=== PATIENT | female | born 1950 | race Caucasian/White ===

== ENCOUNTER → 2018-04-13 10:10 | Outpatient (CLI) | payer MEDICARE, BC, SELFPAY ==
[2018-04-13 10:39] LABS: Add Manual Diff / Slide Review NO; Basophils Percent Auto 0.1 % (0-2); Eosinophils Percent Auto 2.7 % (2-4); Hematocrit 35.4 % (36-46); Hemoglobin 12.2 g/dL (12.0-16.0); Lymphocytes Percent Auto 46.2 % (25-40); Mean Corpuscular HGB Conc 34.4 % (30-36); Mean Corpuscular Hemoglobin 31.2 PG (26-34); Mean Corpuscular Volume 90.8 fL (80-100); Monocytes Percent Auto 8.6 % (3-14); Neutrophils Absolute Auto 2700 /uL (3000-5900); Neutrophils Percent Auto 42.4 % (50-75); Platelet Count 242 X10^3/uL (150-400); Red Cell Distribution Width 13.2 % (11.6-14.8); White Blood Cell Count 6.3 X10^3/uL (4.5-11.0)
[2018-04-13 10:47] LABS: Alanine Aminotransferase 17 IU/L (9-52); Albumin Globulin Ratio 1.6 (1.0-2.8); Alkaline Phosphatase 63 U/L (38-126); Aspartate Aminotransferase 19 IU/L (14-36); Bilirubin Total 0.5 mg/dL (0.2-1.3); Blood Urea Nitrogen 18 mg/dL (7-17); Calcium 9.4 mg/dL (8.4-10.2); Carbon Dioxide 29 mmol/L (22-32); Chloride 106 mmol/L (98-107); Globulin 2.5 g/dL (1.7-4.1); Glucose 106 mg/dL (80-110); HEMOLYSIS < 15 (0-50); Potassium 4.8 mmol/L (3.4-5.1); Sodium 141 mmol/L (137-145); Total Protein 6.5 g/dL (6.3-8.2)
[2018-04-13 11:21] LABS: Carcinoembryonic Antigen < 0.3 ng/mL (0.1-3.0)
== END ==
PROVIDERS: Family Provider Internal Medicine; PCP Internal Medicine; Visit Provider Nurse Practitioner Gerontology
DX: C21.0 Malignant neoplasm of anus, unspecified (principal)
CPT/HCPCS: 36415; 80053; 82378; 85025

== ENCOUNTER → 2018-10-13 08:54 | Outpatient (CLI) | payer MEDICARE, BC, SELFPAY ==
[2018-10-13 09:17] LABS: Add Manual Diff / Slide Review NO; Basophils Absolute Auto 0 /uL (0-100); Basophils Percent Auto 0.2 % (0-2); Eosinophils Absolute Auto 100 /uL (0-450); Hematocrit 39.4 % (36-46); Hemoglobin 13.3 g/dL (12.0-16.0); Lymphocytes Absolute Auto 3000 /uL (1100-4500); Mean Corpuscular HGB Conc 33.7 % (30-36); Mean Corpuscular Hemoglobin 30.7 PG (26-34); Mean Corpuscular Volume 90.9 fL (80-100); Monocytes Absolute Auto 600 /uL (0-900); Monocytes Percent Auto 8.5 % (3-14); Neutrophils Absolute Auto 3000 /uL (1500-7000); Neutrophils Percent Auto 44.3 % (50-75); Platelet Count 285 X10^3/uL (150-400); Red Blood Cell Count 4.34 X10^6/uL (4.0-5.2); Red Cell Distribution Width 13.6 % (11.6-14.8); White Blood Cell Count 6.7 X10^3/uL (4.5-11.0)
[2018-10-13 09:36] LABS: Blood Urea Nitrogen 23 mg/dL (7-17); Estimated Glomerular Filt Rate 54.8 mL/min (>60)
--- NOTE | 2018-10-13 10:06 | DI.CT.S_ITS ---
PROCEDURE: CT CHEST ABD PEL W CON INDICATIONS: surveillance anal squamous cell carcinoma there is a stable 3 mm pulmonary nodule image 3/49 in the extreme left lung base. TECHNIQUE: After the administration of oral and intravenous contrast, 5 mm thick sections acquired from the lung apices to the symphysis. 5 mm coronal and sagittal reformats were performed, with additional 7 mm coronal MIP reformats through the lungs. For radiation dose reduction, the following was used: automated exposure control, adjustment of mA and/or kV according to patient size. COMPARISON: [facility], CT, CHEST/ABD/PEL WITH CONTRAST, 10/27/2017, 10:17. FINDINGS: Image quality: Excellent. CHEST: Lungs and pleura: No acute airspace opacities. No pleural effusions or pneumothorax. Central and peripheral airways appear patent and normal in caliber. There is a stable 3 mm nodule on image 3/49 in the extreme left lung base. No other pulmonary nodules are identified. Mediastinum: Heart size is normal. No pericardial effusion. No mediastinal or hilar adenopathy by size criteria. Thoracic aorta and central pulmonary arteries are normal in size. Esophagus is normal in caliber. Small hiatal hernia. Chest wall: No axillary or supraclavicular adenopathy by size criteria. Thyroid gland is unremarkable. ABDOMEN: Solid organs: Liver is normal in size and enhancement. Gallbladder is unremarkable. Biliary system is non dilated. Pancreas enhances normally. Spleen is normal in size and enhancement. No adrenal nodules. Kidneys demonstrate normal size and enhancement, without hydronephrosis. Peritoneum and bowel: Bowel loops demonstrate normal wall thickness and caliber. No free fluid or air or abscess cavity. Sigmoid diverticulosis without evidence of diverticulitis. Nodes and vessels: No retroperitoneal or mesenteric adenopathy by size criteria. Aorta and inferior vena cava are normal in size. Miscellaneous: No ventral hernias. PELVIS: Genitourinary: Bladder wall thickness is normal. Miscellaneous: No inguinal hernias or adenopathy. No evidence of local recurrence in the region of the deep pelvis. Bones: No suspicious bony lesions. No vertebral body compression fractures. IMPRESSION: 1. No evidence of locally recurrent or metastatic disease in the chest, abdomen, and pelvis. 2. Stable 3 mm pulmonary nodule in the extreme left lung base. 3. Sigmoid diverticulosis. 4. Small hiatal hernia. Dictated by: Blayne Whitt M.D. on 10/13/2018 at 11:38 Approved by: Blayne Whitt M.D. on 10/13/2018 at 12:19
[2018-10-13 10:09] LABS: Carcinoembryonic Antigen 0.4 ng/mL (0.1-3.0)
--- NOTE | 2018-10-13 11:45 | PC.NURSE ---
Labs are stable, provider visit on 10/18
[2018-10-18 14:24] VITALS: BP 145/79; PULSE 78; RESP 16; TEMP 37; O2SAT 100
== END ==
PROVIDERS: Family Provider Internal Medicine; PCP Internal Medicine; Visit Provider Nurse Practitioner Gerontology
DX: C21.0 Malignant neoplasm of anus, unspecified (principal); R91.1 Solitary pulmonary nodule; K57.30 Diverticulosis of large intestine without perforation or abscess without bleeding; K44.9 Diaphragmatic hernia without obstruction or gangrene
CPT/HCPCS: 36415; 71260; 74177; 82378; 82565; 84520; 85025; Q9967

== ENCOUNTER 2018-12-30 07:18 | Day surgery (SDC) | payer MEDICARE, BC, SELFPAY ==
--- NOTE | 2018-12-30 | PATH_ITS ---
[facility] Accession Number: [id number] . 01 Material submitted: . anus - ANUS BIOPSY, POSTERIOR 1 O'CLOCK . 02 Diagnosis: Anus, Posterior 1 o'clock, Biopsy: Anal squamous mucosa with hyperkeratosis and focal parakeratosis; please see comment. Viral cytopathic effect not identified. Negative for dysplasia or malignancy. Additional step sections examined. V/01/03/2019 . 02 Comment: The findings in the anal biopsy are suggestive of chronic irritation. There is no evidence of viral cytopathic effect or neoplasm in this biopsy. . 02 Electronically signed: . Darin Shane MD, PhD, Pathologist NPI- [id number] . 01 Gross description: . ANUS BIOPSY, POSTERIOR 1 O'CLOCK: Received in formalin is 1 fragment of major soft tissue measuring 0.1 x 0.1 x 0.1 cm. Tissue is inked,. Specimen is submitted in its entirety in 1 cassette. /[facility] . 02 Pathologist provided ICD-10: Z12.12 . 02 CPT . 029573 Performed at: 01 [facility] [address] [place] [address], [place], [place] [id number] MD Rajendra Quintero MD Phone: [phone] Performed at: 02 [facility] [address] [place], [place] [id number] MD Jannet Finley MD Phone: [phone]
[2018-12-30 08:09] VITALS: BP 147/75; PULSE 87; RESP 15; TEMP 36.4; O2SAT 98; BMI 33.3
[2018-12-30] MEDS: SODIUM CHLORIDE 0.9% 1,000 ML 200 ML IV (08:28)
--- NOTE | 2018-12-30 09:15 | PM.HP.1 ---
History of Present Illness Date Patient Seen: 12/30/18 Time Patient Seen: 09:15 Chief complaint: [id number] Narrative: The patient is here for surveillance anoscopy. She was diagnosed and treated for anal cancer squamous cell 4 years ago. Patient History Medical History Anal cancer (Acute) Arthritis (Acute) GERD (gastroesophageal reflux disease) (Acute) Hyperlipidemia (Acute) Pollen allergies (Acute) Ulcer (Acute) Family History (Updated 12/30/18 @ 07:58 by Darby Fierro RN) Mother Diabetes mellitus Sister Diabetes mellitus Social History household members: spouse Family & Social History Family History Mother Diabetes mellitus Sister Diabetes mellitus Social History: household members spouse Meds Home Medications Medication Instructions Recorded Confirmed Type famotidine [Pepcid] 40 mg PO DAILY #0 05/21/17 12/30/18 History acetaminophen [Tylenol Extra 500 mg PO Q6H PRN 12/30/18 12/30/18 History Strength] xaggvhve-ovh-mbgri acid-vit K 1 mcg PO DAILY 12/30/18 12/30/18 History [Multi For Her 50 Plus] omega 8-lxy-rdz-fish oil [Fish Oil] 1 cap PO DAILY 12/30/18 12/30/18 History vitamin E 180 unit PO DAILY 12/30/18 12/30/18 History Allergies Allergy/AdvReac Type Severity Reaction Status Date / Time No Known Drug Allergies Allergy Verified 12/30/18 08:07 Review of Systems Review of Systems All systems reviewed & are unremarkable except as noted in HPI and below Exam Vital Signs (past 8 hours): - 12/30/18 08:09 Temperature 97.6 F Pulse Rate 87 Respiratory Rate 15 Blood Pressure 147/75 H Pulse Oximetry 98 Oxygen Delivery Method Room Air Narrative Exam Narrative: Operative no apparent distress. Lungs are clear no rales or rhonchi. heart regular rate and rhythm without murmur gallop. abdomen is protuberant soft nontender without mass. Alert oriented x3. Assessment & Plan Assessment & Plan narrative: Patient for an anoscopy as surveillance for her squamous cell cancer of the anus. Risks of bleeding and infection discuss
--- NOTE | 2018-12-30 09:18 | PM.PREOP ---
Pre-operative Note Interval Note History & Physical reviewed/Exam performed by Physician: Yes Changes to H&P: No ASA Class (for procedural sedation): I
--- NOTE | 2018-12-30 09:29 | PM.OP.ENDO ---
Operative Date/Time/Diagnoses Date of procedure: 12/30/18 Time of procedure: 09:29 Pre-op diagnosis: History of squamous cell carcinoma of the anal canal Post-op diagnosis: same Procedure & Clinicians Study performed: Anoscopy with cold biopsy Same procedure as scheduled: Yes Indications: Surveillance Surgeon: Jose Eduardo Pollock Procedure Notes SCOAP/Timeout: Performed Procedure in detail: Patient is placed left lateral decubitus position. 2% lidocaine gel was placed to the anal verge. Anoscope was inserted and circumferential exam performed. the only abnormality I noted other than some tears created in the mucosa from the scope and her narrowed sphincter was a small raised area at about 1:00 a.m. in the right posterior slightly lateral position. biopsies were taken of this area. the scope was removed and the patient tolerated the procedure well. Scope withdrawal time: Not applicable Sedation minutes: 8 Findings: other findings (Small raised area) Specimen(s): other (Biopsies) Complications: none Recommendations: Other recommendation (Anoscopy in 1 year) Follow up: as needed Disposition: PACU
[2018-12-30] MEDS: fentaNYL 250 MCG/5 ML INJ IV (09:31)
[2018-12-30 09:32] VITALS: BP 111/52; PULSE 76; RESP 17; TEMP 36.4; O2SAT 92
[2018-12-30] MEDS: MIDAZOLAM 5 MG/5 ML VIAL IV (09:32)
[2018-12-30 09:38] VITALS: BP 125/75; PULSE 77; RESP 14; O2SAT 96
[2018-12-30 09:43] VITALS: BP 130/64; PULSE 82; RESP 14; TEMP 36.8; O2SAT 98
[2018-12-30 09:47] VITALS: BP 139/69; PULSE 69; RESP 16; O2SAT 98
[2018-12-30 10:08] VITALS: BP 147/68; PULSE 61; RESP 16; TEMP 36.7; O2SAT 99
== END 2018-12-30 10:14 ==
LOC: ENDO 07:19
PROVIDERS: PCP Internal Medicine; Visit Provider Specialist
PROC: 0DJD8ZZ Inspection of Lower Intestinal Tract, Via Natural or Artificial Opening Endoscopic (ICD-10-PCS; CPT 45378; principal; 2018-12-30 08:45)
DX: Z85.048 Personal history of other malignant neoplasm of rectum, rectosigmoid junction, and anus (principal)
CPT/HCPCS: 46606; 88305; J2250; J3010

== ENCOUNTER → 2019-05-29 10:18 | Outpatient (CLI) | payer MEDICARE, BC, SELFPAY ==
--- NOTE | 2019-05-29 10:23 | DI.RAD.S_ITS ---
PROCEDURE: XR LUMBAR SPINE MIN 4V INDICATIONS: Lumbosacral spondylosis TECHNIQUE: 4 views of the lumbar spine were acquired. COMPARISON: [facility], CT, CT CHEST ABD PEL W CON, 10/13/2018, 10:25. FINDINGS: Bones: 5 nonrib-bearing vertebrae are present. There is normal bony alignment. No vertebral body compression fractures. No suspicious bony lesions. There are moderate multilevel degenerative changes of the lumbar spine with multilevel intervertebral disc space height loss and reactive endplate sclerosis worst at L4-L5, as well as multilevel facet arthropathy worse at L4-L5. Facet arthropathy also results in osseous neural foraminal narrowing at the L4-L5 level. Mild degenerative changes of the hip joints bilaterally. Soft tissues: Nonobstructive bowel gas pattern. Rounded pelvic phleboliths are noted. There is mild calcified plaque of the abdominal aorta. Oblique images: No convincing pars defects are identified radiographically. IMPRESSION: Moderate multilevel degenerative changes of the lumbar spine, worst at the L4-L5 level as described above. Dictated by: Jerome Peñaloza M.D. on 05/29/2019 at 15:26 Approved by: Jerome Peñaloza M.D. on 05/29/2019 at 15:31
== END ==
PROVIDERS: PCP Internal Medicine; Visit Provider Physical Medicine & Rehabilitation
DX: M47.26 Other spondylosis with radiculopathy, lumbar region (principal); M47.27 Other spondylosis with radiculopathy, lumbosacral region; M48.07 Spinal stenosis, lumbosacral region
CPT/HCPCS: 72110; 99214

== ENCOUNTER → 2019-06-08 09:40 | Outpatient (CLI) | payer MEDICARE, BC, SELFPAY ==
--- NOTE | 2019-06-08 09:42 | DI.MRI.S_ITS ---
PROCEDURE: MR LUMBAR SPINE WO CON INDICATIONS: Lumbosacral spondylosis TECHNIQUE: Noncontrast sagittal T1 spin echo and T2 fast echo, sagittal STIR, axial T1 and T2 fast spin echo through the lumbar spine. In cases with scoliosis, additional coronal T2 fast spin echo may be performed. COMPARISON: [facility], MR, L-SPINE W&WO CONTRAST, 04/29/2016, 18:43. [facility], CR, XR LUMBAR SPINE MIN 4V, 05/29/2019, 10:26. [facility], CT, CT CHEST ABD PEL W CON, 10/13/2018, 10:25. FINDINGS: Image quality: Excellent. Alignment and Curvature: There is normal bony alignment. Bone Marrow: Marrow is of normal overall signal. No acute vertebral body compression fractures. Spinal Cord: Conus medullaris terminates at the L1 level. Visualized cord demonstrates normal signal and size. Paraspinous Soft Tissues: No paravertebral masses. T12-L1: No significant abnormality is seen. L1-L2: The disc height is well-preserved. Loss of disc signal is seen at this level. Mild generalized disc bulge is seen. Mild bilateral neural foraminal narrowing is seen. No significant central canal narrowing is seen. Stable from the prior study. L2-L3: Mild loss of disc height is seen. Loss of disc signal is seen. Moderate generalized disc bulge is seen. Moderate facet joint hypertrophy is seen. There is moderate left-sided and mild to moderate right-sided neural foraminal narrowing seen. Mild central canal narrowing is seen. These imaging findings have progressed compared to the prior study. L3-L4: Moderate loss of disc height is seen. Loss of disc signal is seen. Moderate generalized disc bulge is seen. Moderate bilateral facet hypertrophy is seen, right worse than left. There is at least moderate right-sided and moderate left-sided neural foraminal narrowing seen. There is a mild degree of compression seen upon the exiting right L3 nerve root. Mild central canal narrowing is seen. These imaging findings have progressed compared to the prior study. L4-L5: Moderate to severe loss of disc height and disc signal are seen. Reactive marrow endplate changes are seen, which demonstrate mix is ed T1 weighted and T2-weighted signal, and are attributed to a combination of edema and fatty metaplasia (Modic type I and Modic type II changes). Moderate generalized disc bulge is seen. Moderate facet joint hypertrophy is seen. There is at least moderate right-sided and moderate to severe left-sided neural foraminal narrowing seen. Compression can be seen on the exiting L4 nerve roots, left worse than right. Minimal central canal narrowing is seen. When comparison is made with the prior examination, these findings are similar. L5-S1: The disc height is well-preserved. Loss of disc signal is seen at this level. Mild generalized disc bulge is seen. Moderate facet joint hypertrophy is seen. There is moderate left-sided and no significant right-sided neural foraminal narrowing seen. No significant central canal narrowing is seen. When comparison is made with the prior examination, these findings are similar. IMPRESSION: Multiple levels of lumbar spine degenerative change are seen, which are most prominent at the L4-L5 level. The degenerative changes are mildly progressed at L2-L3 L3-L4 compared to 2016. Dictated by: Meño Mohr M.D. on 06/08/2019 at 10:46 Approved by: Meño Mohr M.D. on 06/08/2019 at 10:53
== END ==
PROVIDERS: Family Provider Internal Medicine; PCP Internal Medicine; Visit Provider Physical Medicine & Rehabilitation
DX: M47.27 Other spondylosis with radiculopathy, lumbosacral region (principal); M47.26 Other spondylosis with radiculopathy, lumbar region; M48.07 Spinal stenosis, lumbosacral region; M48.061 Spinal stenosis, lumbar region without neurogenic claudication
CPT/HCPCS: 72148

== ENCOUNTER 2019-08-15 14:25 | Outpatient (CLI) | payer MEDICARE, BC, SELFPAY ==
--- NOTE | 2019-08-15 14:27 | DI.RAD.S_ITS ---
PROCEDURE: PAIN L/S TRANSFORAMINAL INJECT INDICATIONS: 92203- Left L3/4 TFESI FINDINGS: Fluoroscopic spot filming was performed to verify placement of spinal needles at the L3-L4 level(s), as labeled on the films. Appropriate location(s) of the needle tip(s) was confirmed by injection of iodinated contrast. Dictated by: Brett Veloz M.D. on 08/15/2019 at 16:00 Approved by: Brett Veloz M.D. on 08/15/2019 at 16:01
[2019-08-15 15:00] VITALS: BP 136/63; PULSE 71; RESP 18; TEMP 36.7; O2SAT 98
[2019-08-15 15:22] VITALS: BP 144/66; PULSE 85; RESP 16; O2SAT 100
--- NOTE | 2019-08-15 15:23 | PC.NURSE ---
NO SEDATION MEDS GIVEN, PT REFUSED.
[2019-08-15 15:27] VITALS: BP 144/69; PULSE 94; RESP 16; O2SAT 100
[2019-08-15] MEDS: BUPIVACAINE 0.25% (PF) VIAL 2 ML INJ (15:29)
[2019-08-15] MEDS: IOPAMIDOL 15 ML VIAL 3 ML INJ (15:30)
[2019-08-15] MEDS: BETAMETHASONE 30 MG/5 ML MDV 6 MG INJ (15:30)
[2019-08-15] MEDS: DEXAMETHASONE 10 MG/ML VIAL 20 MG INJ (15:30)
[2019-08-15 15:32] VITALS: BP 149/60; PULSE 91; RESP 16; O2SAT 100
--- NOTE | 2019-08-15 15:34 | PC.NURSE ---
NO SEDATION MEDS GIVEN TO PT. ASSISTING PT OFF TABLE AND TRANSPORTING TO POST PROC AREA IN STABLE CONDITION.
[2019-08-15 15:48] VITALS: BP 144/65; PULSE 69; RESP 16; O2SAT 99
--- NOTE | 2019-08-15 16:18 | P.PCN_ITS ---
Procedures Date/Time Date of procedure: 08/15/19 Time of procedure: 16:20 General Procedure description: PROVIDER: Michael Rivera DO Operative Note PREOP DIAGNOSIS 1. FORAMINAL STENOSIS WITH LE SYMPTOMS, POST OP DIAGNOSIS 1. FORAMINAL STENOSIS WITH LE SYMPTOMS, PROCEDURES 1. FLUOROSCOPICALLY GUIDED CONTRAST CONTROLLED TRANSFORAMINAL EPIDURAL STEROID INJECTION - LEFT L3/4 TFESI SURGEON: Michael Rivera, DO INDICATIONS Alexandra is referred by Dr. Britton for treatment of Foraminal Stenosis with left LE Symptoms FINDINGS Foraminal Nerve Root Compression secondary to disc disease and facet hypertrophy DESCRIPTION OF PROCEDURE Following review of allergy and review of potential side effects and complications, including, but not necessarily limited to, infection, allergic reaction, local tissue breakdown, stroke, temporary or permanent nerve injury, paralysis, and possible , the patient indicated that the patient understood and agreed to proceed. An informed consent document was signed by the patient, witnessed by a nurse, and placed in the patient's chart. Additionally, other treatment options including medications, modalities, and physical therapy were reviewed with the patient. After review of previous anaesthesic history and IV conscious sedation the patient was deemed safe to proceed with todays procedure with IV conscious sedation as ASA class II designation. Safety time-out was performed to confirm p atient ID, procedure to be performed and site of procedure. IV sedation was deemed unnecessary and thus not administered by the RN after DO order, titrated to patient comfort during the course of the procedure while the patient remained responsive to all verbal commands In the prone position following sterile prep and drape of the lumbar region, the left L3/4 posterior neuroforamen was identified fluoroscopically. The skin was anesthetized via a 25-gauge 1.5-inch needle with 1% lidocaine solution. At this point, a 25-gauge 3.5-inch spinal needle was atraumatically introduced and advanced under fluoroscopic guidance through the posterior left L3/4 neuroforamen to approximately the anterior aspect of the canal. Depth was confirmed on lateral view. Following negative aspiration, injection of approximately 1.5 cc of Isovue 200 under live fluoroscopy in the AP view confirmed excellent flow along the nerve root, into the epidural space without vascular or intrathecal uptake observed Radiological data, including multiple fluoroscopic views of the lumbosacral spine, reveal a spinal needle at the left L3/4 posterior neuroforamen. Subsequent views show flow of contrast material flowing superiorly and inferiorly along the nerve root confirming epidural flow. Subsequently, a test dose of 1.5 cc of 1% lidocaine solution was administered and patient was observed for two minutes for signs or symptoms of complications, including abdominal pain, shortness of breath, bilateral upper or lower extremity weakness, nausea and vomiting, prior to steroid injection. At this point, a total of 3cc or 20mg of dexamethasone and 6mg betamethasone was injected without incident. The patient tolerated the procedure well without signs or symptoms of complications prior to transfer to the recovery area continued monitoring without incident. The patient was then transferred to the recovery area where they were observed for an appropriate time after the injection. The patient reported a VAS score of 7 prior to the procedure and a post-procedure VAS of 0. Total Fluoroscopy Time: 24.2 seconds Total Conscious Sedation Time: 24min POST OP INSTRUCTIONS The patient was provided a Pain Log to continue to record their response to the target-specific procedure prior to follow-up visit with their referring physician. Additionally, specific post-injection care instructions and a contact number to our office were provided if concerns arise regarding possible complications associated with the procedure are suspected. Michael Rivera DO Complications: none
== END 2019-08-15 15:50 | disposition home or self-care (01) ==
LOC: RAD 14:26
PROVIDERS: Family Provider Internal Medicine; PCP Internal Medicine; Visit Provider Physical Medicine & Rehabilitation
DX: M48.061 Spinal stenosis, lumbar region without neurogenic claudication (principal); M51.16 Intervertebral disc disorders with radiculopathy, lumbar region
CPT/HCPCS: 64483; J0702; J1100; J2250; J3010

== ENCOUNTER → 2020-09-17 11:41 | Outpatient (CLI) | payer MEDICARE, BC, SELFPAY ==
[2020-09-17 12:21] LABS: Add Manual Diff / Slide Review NO; Basophils Absolute Auto 0 /uL (0-100); Basophils Percent Auto 0.1 % (0-2); Eosinophils Absolute Auto 300 /uL (0-450); Eosinophils Percent Auto 3.8 % (2-4); Hematocrit 38.1 % (36-46); Hemoglobin 12.6 g/dL (12.0-16.0); Lymphocytes Absolute Auto 4500 /uL (1100-4500); Lymphocytes Percent Auto 52.9 % (25-40); Mean Corpuscular HGB Conc 33.1 % (30-36); Mean Corpuscular Hemoglobin 30.1 PG (26-34); Mean Corpuscular Volume 91.1 fL (80-100); Monocytes Absolute Auto 600 /uL (0-900); Monocytes Percent Auto 7.1 % (3-14); Neutrophils Absolute Auto 3100 /uL (1500-7000); Neutrophils Percent Auto 36.1 % (50-75); Platelet Count 293 X10^3/uL (150-400); Red Blood Cell Count 4.18 X10^6/uL (4.0-5.2); Red Cell Distribution Width 13.4 % (11.6-14.8); White Blood Cell Count 8.5 X10^3/uL (4.5-11.0)
[2020-09-17 12:34] LABS: Alanine Aminotransferase 13 IU/L (<35); Albumin 4.3 g/dL (3.5-5.0); Albumin Globulin Ratio 1.5 (1.0-2.8); Alkaline Phosphatase 74 U/L (38-126); Aspartate Aminotransferase 24 IU/L (14-36); BUN Creatinine Ratio 17.4 (6-22); Bilirubin Total 0.5 mg/dL (0.2-1.3); Blood Urea Nitrogen 15 mg/dL (7-17); Calcium 9.5 mg/dL (8.4-10.2); Carbon Dioxide 28 mmol/L (22-32); Chloride 105 mmol/L (98-107); Estimated Glomerular Filt Rate > 60.0 mL/min (>60); Globulin 2.8 g/dL (1.7-4.1); Glucose 106 mg/dL (80-110); HEMOLYSIS < 15 (0-50); Potassium 4.1 mmol/L (3.4-5.1); Sodium 137 mmol/L (137-145); Total Protein 7.1 g/dL (6.3-8.2)
[2020-09-17 12:36] LABS: Cholesterol 230 mg/dL (140-199); HDL Cholesterol 54 mg/dL (40-60); LDL Cholesterol Calculated 154 mg/dL (<100); Triglycerides 111 mg/dL (35-150)
[2020-09-17 14:07] LABS: Thyroid Stimulating Hormone 1.37 uIU/mL (0.47-4.68)
== END ==
PROVIDERS: Family Provider Internal Medicine; PCP Internal Medicine; Referring Provider Internal Medicine Hematology & Oncology; Visit Provider Internal Medicine Hematology & Oncology
DX: E78.2 Mixed hyperlipidemia (principal); Z85.048 Personal history of other malignant neoplasm of rectum, rectosigmoid junction, and anus; C91.11 Chronic lymphocytic leukemia of B-cell type in remission; C21.0 Malignant neoplasm of anus, unspecified
CPT/HCPCS: 36415; 80053; 80061; 84443; 85025

== ENCOUNTER → 2021-02-26 07:31 | Outpatient (CLI) | payer MEDICARE, BC, SELFPAY ==
--- NOTE | 2021-02-26 07:33 | DI.RAD.S_ITS ---
PROCEDURE: XR LUMBAR SPINE MIN 4V INDICATIONS: BACK PAIN TECHNIQUE: 5 views of the lumbar spine were acquired, including bilateral oblique views. COMPARISON: [facility], MR, MR LUMBAR SPINE WO CON, 06/08/2019, 9:46. [facility], CT, CT CHEST ABD PEL W CON, 10/13/2018, 10:25. [facility], CR, XR LUMBAR SPINE MIN 4V, 05/29/2019, 10:26. FINDINGS: Bones: 5 nonrib-bearing vertebrae are present. There is normal bony alignment. No vertebral body compression fractures. Intervertebral disc space height loss most pronounced at L4-L5 and L5-S1. Multilevel anterior vertebral body osteophytes. Findings similar to 2019. No suspicious bony lesions. Soft tissues: Overlying bowel gas pattern is normal. No suspicious soft tissue calcifications. Oblique images: No pars defects. L4-L5 and L5-S1 neural foraminal narrowing. IMPRESSION: No compression fracture. Overall findings similar to 2019. Moderate to severe DDD at L4-L5 and L5-S1. Dictated by: Jon Addison M.D. on 02/26/2021 at 8:11 Approved by: Jon Addison M.D. on 02/26/2021 at 8:15
== END ==
PROVIDERS: Family Provider Internal Medicine; PCP Internal Medicine; Referring Provider Physical Medicine & Rehabilitation; Visit Provider Physical Medicine & Rehabilitation
DX: M47.27 Other spondylosis with radiculopathy, lumbosacral region (principal); M48.07 Spinal stenosis, lumbosacral region; M51.16 Intervertebral disc disorders with radiculopathy, lumbar region; M51.17 Intervertebral disc disorders with radiculopathy, lumbosacral region
CPT/HCPCS: 72110; 99214

== ENCOUNTER → 2021-03-10 09:54 | Outpatient (CLI) | payer MEDICARE, BC, SELFPAY ==
[2021-03-10 12:43] LABS: COVID19 -Nasal RAPID Negative (Negative)
== END ==
PROVIDERS: Family Provider Internal Medicine; PCP Internal Medicine; Referring Provider Physician Assistant; Visit Provider Physician Assistant
DX: Z01.812 Encounter for preprocedural laboratory examination (principal); Z20.822 Contact with and (suspected) exposure to COVID-19
CPT/HCPCS: 87635; C9803

== ENCOUNTER 2021-03-11 12:26 | Outpatient (CLI) | payer MEDICARE, BC, SELFPAY ==
--- NOTE | 2021-03-11 12:27 | DI.RAD.S_ITS ---
PROCEDURE: PAIN L/S TRANSFORAMINAL INJECT INDICATIONS: SPONDYLOSIS COMPARISON: Lumbar spine MRI, 06/08/2019. X-ray, Lumbar spine, 02/26/2021 and 05/29/2019. FINDINGS: Fluoroscopic spot filming was performed to verify placement of spinal needles at the L3-L4 level(s), as labeled on the films. Appropriate location(s) of the needle tip(s) was confirmed by injection of iodinated contrast. IMPRESSION: Fluoroscopy for pain management. Dictated by: Toni Ramirez M.D. on 03/11/2021 at 17:20 Approved by: Toni Ramirez M.D. on 03/11/2021 at 17:21
[2021-03-11 12:50] VITALS: BP 144/80; PULSE 73; RESP 14; TEMP 37.3; O2SAT 100
[2021-03-11 13:14] VITALS: BP 189/76; PULSE 72; RESP 19; O2SAT 99
[2021-03-11 13:19] VITALS: BP 164/71; PULSE 74; RESP 19; O2SAT 100
[2021-03-11] MEDS: DEXAMETHASONE 10 MG/ML VIAL 20 MG INJ (13:23)
[2021-03-11] MEDS: methylPREDNISolone acetate 80 MG/ML VIAL INJ (13:23)
[2021-03-11] MEDS: IOPAMIDOL 15 ML VIAL 3 ML INJ (13:23)
[2021-03-11] MEDS: BUPIVACAINE 0.25% (PF) VIAL 2 ML INJ (13:23)
[2021-03-11 13:24] VITALS: BP 161/75; PULSE 73; RESP 20; O2SAT 100
--- NOTE | 2021-03-11 13:30 | PM.PROC.IR.1 ---
Date/Time/Diagnoses Date of procedure: 03/11/21 Time of procedure: 13:31 Pre-procedure diagnosis: 1. FORAMINAL STENOSIS WITH LE SYMPTOMS Post-procedure diagnosis: same Procedure Notes Procedure: 1. FLUOROSCOPICALLY GUIDED CONTRAST CONTROLLED TRANSFORAMINAL EPIDURAL STEROID INJECTION - RIGHT L3/4 TFESI Indications: Alexandra is referred by Dr. Britton for treatment of Foraminal Stenosis with right LE Symptoms Physician: Michael Rivera Total Fluoroscopy time (seconds): 9 Total sedation minutes: 0 Complications: none Procedure in detail & Post-procedure care: FINDINGS Foraminal Nerve Root Compression secondary to disc disease and facet hypertrophy DESCRIPTION OF PROCEDURE Following review of allergy and review of potential side effects and complications, including, but not necessarily limited to, infection, allergic reaction, local tissue breakdown, stroke, temporary or permanent nerve injury, paralysis, and possible , the patient indicated that the patient understood and agreed to proceed. An informed consent document was signed by the patient, witnessed by a nurse, and placed in the patient's chart. Additionally, other treatment options including medications, modalities, and physical therapy were reviewed with the patient. After review of previous anaesthesic history and IV conscious sedation the patient was deemed safe to proceed with today?s procedure with IV conscious sedation as ASA class II designation. Safety time-out was performed to confirm patient ID, procedure to be performed and site of procedure. IV sedation was deemed unnecessary and thus not administered by the RN after DO order, titrated to patient comfort during the course of the procedure while the patient remained responsive to all verbal commands In the prone position following sterile prep and drape of the lumbar region, the right L3/4 posterior neuroforamen was identified fluoroscopically. The skin was anesthetized via a 25-gauge 1.5-inch needle with 1% lidocaine solution. At this point, a 25-gauge 3.5-inch spinal needle was atraumatically introduced and advanced under fluoroscopic guidance through the posterior right L3/4 neuroforamen to approximately the anterior aspect of the canal. Depth was confirmed on lateral view. Following negative aspiration, injection of approximately 1.5 cc of Isovue 200 under live fluoroscopy in the AP view confirmed excellent flow along the nerve root, into the epidural space without vascular or intrathecal uptake observed Radiological data, including multiple fluoroscopic views of the lumbosacral spine, reveal a spinal needle at the right L3/4 posterior neuroforamen. Subsequent views show flow of contrast material flowing superiorly and inferiorly along the nerve root confirming epidural flow. Subsequently, a test dose of 1.5 cc of 1% lidocaine solution was administered and patient was observed for two minutes for signs or symptoms of complications, including abdominal pain, shortness of breath, bilateral upper or lower extremity weakness, nausea and vomiting, prior to steroid injection. At this point, a total of 3cc or 20mg of dexamethasone and 6mg of betamethasone was injected without incident. The patient tolerated the procedure well without signs or symptoms of complications prior to transfer to the recovery area continued monitoring without incident. The patient was then transferred to the recovery area where they were observed for an appropriate time after the injection. The patient reported a VAS score of 7 prior to the procedure and a post-procedure VAS of 0. POST OP INSTRUCTIONS The patient was provided a Pain Log to continue to record their response to the target-specific procedure prior to follow-up visit with their referring physician. Additionally, specific post-injection care instructions and a contact number to our office were provided if concerns arise regarding possible complications associated with the procedure are suspected.
[2021-03-11 13:32] VITALS: BP 167/74; PULSE 66; RESP 16; O2SAT 100
[2021-03-11 13:37] VITALS: BP 153/76; PULSE 71; RESP 15; O2SAT 100
== END 2021-03-11 13:38 | disposition home or self-care (01) ==
LOC: RAD 12:27
PROVIDERS: Family Provider Internal Medicine; PCP Internal Medicine; Referring Provider Physical Medicine & Rehabilitation; Visit Provider Physical Medicine & Rehabilitation
DX: M48.061 Spinal stenosis, lumbar region without neurogenic claudication (principal); M51.16 Intervertebral disc disorders with radiculopathy, lumbar region
CPT/HCPCS: 64483; J1040; J1100; J2250; J3010

== ENCOUNTER → 2022-06-09 12:10 | Outpatient (CLI) | payer MEDICARE, BC, SELFPAY ==
--- NOTE | 2022-06-09 12:12 | DI.MG.S_ITS ---
BILATERAL DIGITAL SCREENING MAMMOGRAM 3D/2D WITH CAD: 06/09/2022 Comparison is made to exams dated: 09/14/2018 mammogram, 01/08/2016 mammogram, and 06/14/2012 mammogram - out side. Both breasts are heterogeneously dense, which may obscure small masses (category c / 51-75% glandular tissue). Current study was also evaluated with a Computer Aided Detection (CAD) system. No significant masses, calcifications, or other findings are seen in either breast. There has been no significant interval change. IMPRESSION: NEGATIVE There is no mammographic evidence of malignancy. A 1 year screening mammogram is recommended. Based on the Tyrer Cuzick model (a risk assessment model) the patient's lifetime risk is 6.5% and her 10 year risk is 5.3%. According to the ACR, ACS, and NCCN guidelines, an annual breast MRI exam along with mammogram is recommended if the patient's lifetime risk is 20% or greater. This exam was interpreted at Station ID: [id number]. NOTE: For mammograms, a report in lay terms will be sent to the patient. Approximately 15% of breast malignancies will not be visualized mammographically. In the management of a palpable breast mass, a negative mammogram must not discourage biopsy of a clinically suspicious lesion. Electronically Signed By: Humble chavarria/ranjan:06/09/2022 18:03:43 letter sent: Normal Exam ACR BI-RADS Category 1: Negative [id number]
== END ==
PROVIDERS: Family Provider Internal Medicine; PCP Internal Medicine; Referring Provider Internal Medicine; Visit Provider Internal Medicine
DX: Z12.31 Encounter for screening mammogram for malignant neoplasm of breast (principal); Z78.0 Asymptomatic menopausal state; M85.89 Other specified disorders of bone density and structure, multiple sites
CPT/HCPCS: 77063; 77067; 77080

== ENCOUNTER 2022-07-07 09:37 | Outpatient (CLI) | payer MEDICARE, BC, SELFPAY ==
[2022-07-07] VITALS (7 sets, daily range): BP systolic 135–172; BP diastolic 55–87; PULSE 64–78; RESP 15–20; TEMP 36.7; O2SAT 99–100
--- NOTE | 2022-07-07 09:40 | DI.RAD.S_ITS ---
PROCEDURE: PAIN L/S TRANSFORAMINAL INJECT INDICATIONS: SPONDYLOSIS COMPARISON: [facility], , PAIN L/S TRANSFORAMINAL INJECT, 03/11/2021, 13:21. FINDINGS: Fluoroscopic spot filming was performed to verify placement of spinal needles at the left L3-4 level(s), as labeled on the films. Appropriate location(s) of the needle tip(s) was confirmed by injection of iodinated contrast. IMPRESSION: Left L3-4 fluoroscopically guided facet injection. Dictated by: Judy Llamas M.D. on 07/07/2022 at 12:47 Approved by: Judy Llamas M.D. on 07/07/2022 at 12:48
[2022-07-07] MEDS: MIDAZOLAM 2 MG/2 ML VIAL IV (10:55)
[2022-07-07] MEDS: BUPIVACAINE 0.25% (PF) VIAL 2 ML INJ (10:57)
[2022-07-07] MEDS: IOPAMIDOL 15 ML VIAL 3 ML INJ (10:57)
[2022-07-07] MEDS: DEXAMETHASONE 10 MG/ML VIAL 20 MG INJ (10:58)
[2022-07-07] MEDS: BETAMETHASONE 30 MG/5 ML MDV 12 MG IM (10:59)
--- NOTE | 2022-07-07 11:07 | P.PCN_ITS ---
Date/Time/Diagnoses Date of procedure: 07/07/22 Time of procedure: 11:07 Pre-procedure diagnosis: 1. FORAMINAL STENOSIS WITH LE SYMPTOMS Post-procedure diagnosis: same Procedure Notes Procedure: 1. FLUOROSCOPICALLY GUIDED CONTRAST CONTROLLED TRANSFORAMINAL EPIDURAL STEROID INJECTION - LEFT L3/4 TFESI Indications: Alexandra/Renae is referred by Dr. Britton for treatment of Foraminal Stenosis with left LE Symptoms Physician: Michael Rivera Total Fluoroscopy time (seconds): 11 Total sedation minutes: 9 Complications: none Procedure in detail & Post-procedure care: FINDINGS Foraminal Nerve Root Compression secondary to disc disease and facet hypertrophy DESCRIPTION OF PROCEDURE Following review of allergy and review of potential side effects and complications, including, but not necessarily limited to, infection, allergic reaction, local tissue breakdown, stroke, temporary or permanent nerve injury, paralysis, and possible , the patient indicated that the patient understood and agreed to proceed. An informed consent document was signed by the patient, witnessed by a nurse, and placed in the patient's chart. Additionally, other treatment options including medications, modalities, and physical therapy were reviewed with the patient. After review of previous anaesthesic history and IV conscious sedation the patient was deemed safe to proceed with today?s procedure with IV conscious sedation as ASA class II designation. Safety time-out was performed to confirm patient ID, procedure to be performed and site of procedure. IV sedation was accomplished with a combination of 2mg of Versed was administered by the RN after DO order, titrated to patient comfort during the course of the procedure while the patient remained responsive to all verbal commands In the prone position following sterile prep and drape of the lumbar region, the left L3/4 posterior neuroforamen was identified fluoroscopically. The skin was anesthetized via a 25-gauge 1.5-inch needle with 1% lidocaine solution. At this point, a 25-gauge 3.5-inch spinal needle was atraumatically introduced and advanced under fluoroscopic guidance through the posterior left L3/4 neuroforamen to approximately the anterior aspect of the canal. Depth was confirmed on lateral view. Following negative aspiration, injection of approximately 1.5 cc of Isovue 200 under live fluoroscopy in the AP view confi rmed excellent flow along the nerve root, into the epidural space without vascular or intrathecal uptake observed Radiological data, including multiple fluoroscopic views of the lumbosacral spine, reveal a spinal needle at the left L3/4 posterior neuroforamen. Subsequent views show flow of contrast material flowing superiorly and inferiorly along the nerve root confirming epidural flow. Subsequently, a test dose of 1.5cc of 1% lidocaine solution was administered and patient was observed for two minutes for signs or symptoms of complications, including abdominal pain, shortness of breath, bilateral upper or lower extremity weakness, nausea and vomiting, prior to steroid injection. At this point, a total of 3cc or 20mg of dexamethasone and 6mg betamethasone was injected without incident. The patient tolerated the procedure well without signs or symptoms of complications prior to transfer to the recovery area continued monitoring without incident. The patient was then transferred to the recovery area where they were observed for an appropriate time after the injection. The patient reported a VAS score of 7 prior to the procedure and a post-procedure VAS of 0. POST OP INSTRUCTIONS The patient was provided a Pain Log to continue to record their response to the target-specific procedure prior to follow-up visit with their referring physician. Additionally, specific post-injection care instructions and a contact number to our office were provided if concerns arise regarding possible complications associated with the procedure are suspected.
== END 2022-07-07 11:25 | disposition home or self-care (01) ==
LOC: RAD 09:39
PROVIDERS: Family Provider Internal Medicine; PCP Internal Medicine; Referring Provider Physical Medicine & Rehabilitation; Visit Provider Physical Medicine & Rehabilitation
DX: M48.061 Spinal stenosis, lumbar region without neurogenic claudication (principal); M51.16 Intervertebral disc disorders with radiculopathy, lumbar region
CPT/HCPCS: 64483; J0702; J1100; J2250; J3490

== ENCOUNTER 2022-11-03 11:43 | Day surgery (SDC) | payer MEDICARE, BC, SELFPAY ==
[2022-11-03 12:28] VITALS: BP 165/75; PULSE 81; RESP 18; TEMP 36.6; O2SAT 99; BMI 29.1
[2022-11-03] MEDS: LACTATED RINGERS 1,000 ML 200 ML IV (12:42)
--- NOTE | 2022-11-03 13:58 | PM.HP.1 ---
History of Present Illness History of Present Illness Date Patient Seen: 11/03/22 Chief complaint: Colonoscopy Narrative: 72-year-old with a history of anal squamous cell carcinoma who is here for surveillance endoscopy. She developed significant anal stenosis following radiation therapy and anoscopy was exceptionally difficult to perform this in office without sedation. No rectal bleeding abdominal pain unintentional weight loss. Last endoscopy was 2020 she completed her chemoradiation 2015. Patient History Medical History Anal cancer Arthritis Facet arthropathy, lumbar Foraminal stenosis of lumbosacral region GERD (gastroesophageal reflux disease) Hyperlipidemia Lumbosacral spondylosis with radiculopathy Pollen allergies Ulcer Vertigo Family & Social History Family History Mother Diabetes mellitus Sister Diabetes mellitus Social History: household members spouse Tobacco & Substance use: Smoking Status Never smoker alcohol intake current alcohol intake frequency a few times a week Substance Use Type does not use Meds Home Medications and Allergies Home Medications Medication Instructions Recorded Confirmed Type acetaminophen 500 mg tablet 500 mg PO Q6H PRN Pain, Moderate 12/30/18 09/30/22 History (Tylenol Extra Strength) cqrtxmidafgj-skitmfoc-dbzdd acid 1 mcg PO DAILY 12/30/18 11/03/22 History 400 mcg-vitamin K 80 mcg capsule (Multi For Her 50 Plus) vitamin E 200 unit capsule 180 unit PO DAILY 12/30/18 11/03/22 History cholecalciferol (vitamin D3) 50 50 mcg PO DAILY 02/26/21 11/03/22 History mcg (2,000 unit) capsule celecoxib 200 mg capsule (Celebrex) 200 mg PO DAILY Arthritis pain #90 06/03/22 11/03/22 Rx caps gabapentin 300 mg capsule 300 mg PO BID #360 caps 06/03/22 11/03/22 Rx Allergies Allergy/AdvReac Type Severity Reaction Status Date / Time No Known Drug Allergies Allergy Verified 11/03/22 12:37 Exam Vital Signs (past 8 hours): - 11/03/22 12:28 Temperature 97.8 F Pulse Rate 81 Respiratory Rate 18 Blood Pressure 165/75 H Pulse Oximetry 99 Oxygen Delivery Method Room Air Oxygen Delivery Method Room Air Narrative Exam Narrative: General adult woman alert oriented no acute distress Assessment & Plan Assessment and plan (1) Primary anal squamous cell carcinoma: Status: Acute Assessment & Plan narrative: 72-year-old woman with history of anal squamous cell carcinoma here for surveillance anoscopy with sedation. Overview of procedure was discussed. Procedural risks including bleeding, missed diagnosis, intestinal injury were discussed. Questions have been answered she is in agreement with this plan. Time Spent With Patient Critical Care time: I spent a total of [] minutes of critical care time on this patient's care today; this time is exclusive of procedural time.
--- NOTE | 2022-11-03 14:00 | PM.OP.COLON ---
Operative Date/Time/Diagnoses Date of procedure: 11/03/22 Time of procedure: 14:00 Pre-op diagnosis: Anal squamous cell carcinoma Post-op diagnosis: same Procedure & Clinicians Study performed: Anoscopy Same procedure as scheduled: Yes Indications: History of primary anal squamous cell carcinoma. She developed an anal stricture from radiation therapy and had difficulty tolerating anoscopy in office. She is here today for a anoscopy under sedation. Procedure Notes Procedure in detail: The history and physical was performed/updated and the patient is ASA class is 2. The procedure was discussed in detail with the patient. Potential risks complications including infection, bleeding, missed diagnosis, perforation, need for surgery, and were explained. Their questions were answered and informed consent was obtained. Patient was brought to the procedure room and placed standard monitoring equipment. The patient's vital signs were monitored continuously throughout the entire procedure. Prior to starting time-out was performed. The patient was placed in the left lateral recumbent position. Procedural sedation was administered by anesthesia. Examination began with a thorough inspection of the perianal area there was no evidence of fissures, fistulae, external hemorrhoids or cutaneous malignancy. The colonoscopy scope was then placed into the anal canal and was advanced to the the proximal rectum. The rectum and anal canal were normal in their appearance. Scope was retroflexed within the rectum which demonstrated scarring within the anal canal but no evidence of recurrence. The patient tolerated the procedure well. They will be discharged once criteria are met. The prep was of good/excellent quality. The withdrawl time was not applicable Specimen(s): none sent Post-procedure Recommendations: Other recommendation(s) (Repeat anoscopy 1 year) Disposition: same day surgery
[2022-11-03 14:18] VITALS: BP 124/71; PULSE 77; RESP 16; TEMP 36.2; O2SAT 97
[2022-11-03 14:23] VITALS: BP 139/62; PULSE 74; RESP 16; O2SAT 97
[2022-11-03 14:28] VITALS: BP 155/82; PULSE 74; RESP 16; O2SAT 98
[2022-11-03 14:30] VITALS: BP 140/69; PULSE 74; RESP 18; TEMP 36.8; O2SAT 99
--- NOTE | 2022-11-03 14:38 | SUR.PHASEII ---
pt given discharge instructions. pt denies pain and nausea. Pt states she is ready to go home.
== END 2022-11-03 14:42 | disposition home or self-care (01) ==
PROVIDERS: Family Provider Internal Medicine; PCP Internal Medicine; Referring Provider Surgery; Visit Provider Surgery
PROC: 0DJD8ZZ Inspection of Lower Intestinal Tract, Via Natural or Artificial Opening Endoscopic (ICD-10-PCS; CPT 45378; principal; 2022-11-03 13:00)
DX: Z12.11 Encounter for screening for malignant neoplasm of colon (principal); Z85.048 Personal history of other malignant neoplasm of rectum, rectosigmoid junction, and anus; K62.4 Stenosis of anus and rectum
CPT/HCPCS: 46600; J2704

== ENCOUNTER 2023-02-16 10:02 | Inpatient (IN) | payer MEDICARE, BC, SELFPAY ==
[2023-02-16] VITALS (100 sets, daily range): BP systolic 91–178; BP diastolic 50–123; PULSE 98–186; RESP 13–37; TEMP 36.6–36.7; O2SAT 90–100; BMI 31.1
--- NOTE | 2023-02-16 10:19 | DI.RAD.S_ITS ---
PROCEDURE: XR CHEST 1V INDICATIONS: chest pain TECHNIQUE: One view of the chest was acquired. COMPARISON: None. FINDINGS: Surgical changes and devices: None. Lungs and pleura: There is mild pulmonary vascular congestion. Heart size is enlarged. Trace bilateral pleural effusion is seen. No gross pneumothorax. Mediastinum: Mediastinal contours appear normal. Heart size is mildly enlarged. Bones and chest wall: No suspicious bony lesions. Overlying soft tissues appear unremarkable. IMPRESSION: Trace bilateral pleural effusion and mild pulmonary vascular congestion. No focal infiltrate. No gross pneumothorax. Dictated by: Todd Brizuela M.D. on 02/16/2023 at 11:03 Approved by: Todd Brizuela M.D. on 02/16/2023 at 11:04
--- NOTE | 2023-02-16 10:20 | ED.ARRPALP ---
HPI - Arrhythmia/Palpitations General Chief Complaint: Arrhythmia/Palpitations Stated Complaint: sent by [place]/ heart issues Time Seen by Provider: 02/16/23 10:09 Source: patient Mode of arrival: Ambulatory History of Present Illness HPI narrative: Patient here with . Patient states symptoms started this past Wednesday at 3:00 a.m. in the morning. Wiley very short of breath. Worse with exertion. Denies any chest pain or dyspnea. No palpitations. No black or bloody stools. No history of hypothyroidism. This never happened to her before. She states she had some slight edema of her ankles yesterday. No calf pain. No prior history atrial fibrillation or arrhythmia. No history of CHF. Patient in no distress. Patient has seen urgent care just prior to arrival and sent here for further evaluation. No history of heart attack strokes or diabetes Related Data Home Medications Medication Instructions Recorded Confirmed acetaminophen 500 mg tablet 500 mg PO Q6H PRN Pain, Moderate 12/30/18 02/16/23 (Tylenol Extra Strength) [id number] acid 1 mcg PO DAILY 12/30/18 02/16/23 400 mcg-vitamin K 80 mcg capsule (Multi For Her 50 Plus) vitamin E 200 unit capsule 180 unit PO DAILY 12/30/18 02/16/23 cholecalciferol (vitamin D3) 50 50 mcg PO DAILY 02/26/21 02/16/23 mcg (2,000 unit) capsule green tea leaf extract 1 cap PO DAILY 02/16/23 02/16/23 Previous Rx's Medication Instructions Recorded celecoxib 200 mg capsule (Celebrex) 200 mg PO DAILY Arthritis pain #90 06/03/22 caps gabapentin 300 mg capsule 300 mg PO BID #360 caps 06/03/22 Allergies Allergy/AdvReac Type Severity Reaction Status Date / Time No Known Drug Allergies Allergy Verified 02/16/23 09:41 Review of Systems Review of Systems Narrative: GENERAL: negative chills, fatigue, malaise, fever, sweats. HEENT: negative sinus pain, ear pain, sore throat RESPIRATORY: Positive dyspnea, negative cough CARDIOVASCULAR: negative chest pain, positive palpitations GASTROINTESTINAL: negative nausea, vomiting, abdominal pain : negative dysuria, frequency, hematuria MUSCULOSKELETAL: negative muscle or bony pain SKIN: negative rash, skin lesions NEUROLOGIC: negative weakness, numbness ROS Unobtainable: All systems reviewed & are unremarkable except as noted in HPI and below Patient History Medical History Anal cancer Arthritis Facet arthropathy, lumbar Foraminal stenosis of lumbosacral region GERD (gastroesophageal reflux disease) Hyperlipidemia Lumbosacral spondylosis with radiculopathy Pollen allergies Ulcer Vertigo Surgical History No pertinent past surgical history Family History Mother Diabetes mellitus Sister Diabetes mellitus Social History household members: spouse Smoking Status: Never smoker alcohol intake: current Smoking Status: Never smoker alcohol intake frequency: a few times a week Substance Use Type: does not use Exam Narrative Exam Narrative: GENERAL: in no distress, not toxic not dyspneic HEAD: Normocephalic. EYES: Pupils equal round ENT: Mucous membranes moist. NECK: Trachea midline. CARDIOVASCULAR: Irregular irregular rate and rhythm RESPIRATORY: Clear to auscultation. Breath sounds equal bilaterally. No wheezes, rales, or rhonchi. GASTROINTESTINAL: Abdomen soft, non-tender EXTREMITIES: No gross deformities. BACK: No flank tenderness. NEURO: AOx4. SKIN: Warm and dry PSYCH: Not anxious, is cooperative Initial Vital Signs Initial Vital Signs: Vital Signs Temperature 98.0 F 02/16/23 10:12 Pulse Rate 102 H 02/16/23 10:12 Respiratory Rate 20 02/16/23 10:12 Blood Pressure 150/75 H 02/16/23 10:12 Pulse Oximetry 99 02/16/23 10:12 Oxygen Delivery Method Room Air 02/16/23 10:12 Course Orders Ordered: Discontinued Medications Acetaminophen (Acetaminophen 325 Mg Tablet) 650 mg PO Q6H PRN PRN Reason: Fever/Mild Pain (1-3) Last Admin: 02/17/23 08:08 Dose: 650 mg Documented By: DHAVAL Apixaban (Apixaban 5 Mg Tablet) 5 mg PO NOW ONE Stop: 02/16/23 10:31 Last Admin: 02/16/23 10:34 Dose: 5 mg Documented By: CAROLE Apixaban (Apixaban 5 Mg Tablet) 5 mg PO BID LASHAY Last Admin: 02/18/23 20:26 Dose: 5 mg Documented By: Admin: 06/01/23 08:38 Dose: 5 mg Documented By: Admin: 02/17/23 21:05 Dose: 5 mg Documented By: Admin: 02/17/23 08:08 Dose: 5 mg Documented By: Admin: 02/16/23 20:12 Dose: 5 mg Documented By: MILLI Digoxin (Digoxin 500 Mcg/2 Ml Ampul) 250 mcg IV Q6H LASHAY Stop: 02/18/23 08:31 Last Admin: 02/18/23 08:38 Dose: 250 mcg Documented By: Admin: 02/18/23 02:37 Dose: 250 mcg Documented By: Admin: 02/17/23 20:16 Dose: 250 mcg Documented By: Admin: 02/17/23 14:43 Dose: 250 mcg Documented By: DHAVAL Diltiazem HCl (Diltiazem 5 Mg/Ml Sdv) 10 mg IV NOW ONE Stop: 02/16/23 10:29 Last Admin: 02/16/23 10:34 Dose: 10 mg Documented By: CAROLE Furosemide (Furosemide 20 Mg/2 Ml Vial) 20 mg IV NOW ONE Stop: 02/16/23 17:37 Last Admin: 02/16/23 18:05 Dose: 20 mg Documented By: VERA Furosemide (Furosemide 20 Mg/2 Ml Vial) 20 mg IV NOW ONE Stop: 02/17/23 13:24 Last Admin: 02/17/23 13:41 Dose: 20 mg Documented By: DHAVAL Gabapentin (Gabapentin 300 Mg Capsule) 300 mg PO BID [facility] Last Admin: 02/18/23 20:26 Dose: 300 mg Documented By: Admin: 02/18/23 08:38 Dose: 300 mg Documented By: Admin: 02/17/23 21:05 Dose: 300 mg Documented By: Admin: 02/17/23 08:08 Dose: 300 mg Documented By: Admin: 02/16/23 20:12 Dose: 300 mg Documented By: MILLI DILTIAZEM (Diltiazem 125 Mg/125 Ml-D5w) 125 mg in 125 mls @ 5 mls/hr IV TITRATE LASHAY; Protocol Last Titration: 02/18/23 12:58 Dose: 5 mg/hr, 5 mls/hr Documented By: Titration: 02/18/23 10:43 Dose: 0 mg/hr, 0 mls/hr Documented By: Titration: 02/18/23 10:16 Dose: 5 mg/hr, 5 mls/hr Documented By: Titration: 02/18/23 09:46 Dose: 10 mg/hr, 10 mls/hr Documented By: Titration: 02/18/23 08:46 Dose: 15 mg/hr, 15 mls/hr Documented By: Admin: 02/18/23 08:35 Dose: 10 mg/hr, 10 mls/hr Documented By: Titration: 02/18/23 08:35 Dose: 10 mg/hr, 10 mls/hr Documented By: Titration: 02/18/23 05:55 Dose: 10 mg/hr, 10 mls/hr Documented By: Admin: 02/17/23 23:20 Dose: 10 mg/hr, 10 mls/hr Documented By: Titration: 02/17/23 23:20 Dose: 10 mg/hr, 10 mls/hr Documented By: Titration: 02/17/23 18:08 Dose: 10 mg/hr, 10 mls/hr Documented By: Titration: 02/17/23 17:59 Dose: 5 mg/hr, 5 mls/hr Documented By: Titration: 02/17/23 15:46 Dose: 0 mg/hr, 0 mls/hr Documented By: Titration: 02/17/23 14:52 Dose: 5 mg/hr, 5 mls/hr Documented By: Titration: 02/17/23 13:43 Dose: 10 mg/hr, 10 mls/hr Documented By: Titration: 02/17/23 13:24 Dose: 5 mg/hr, 5 mls/hr Documented By: Admin: 02/17/23 11:44 Dose: 10 mg/hr, 10 mls/hr Documented By: Titration: 02/17/23 11:44 Dose: 10 mg/hr, 10 mls/hr Documented By: Titration: 02/17/23 10:38 Dose: 10 mg/hr, 10 mls/hr Documented By: Admin: 02/17/23 03:36 Dose: 15 mg/hr, 15 mls/hr Documented By: Titration: 02/17/23 03:36 Dose: 15 mg/hr, 15 mls/hr Documented By: Admin: 02/16/23 22:12 Dose: 15 mg/hr, 15 mls/hr Documented By: Titration: 02/16/23 22:12 Dose: 15 mg/hr, 15 mls/hr Documented By: Titration: 02/16/23 16:15 Dose: 15 mg/hr, 15 mls/hr Documented By: Titration: 02/16/23 14:16 Dose: 0 mg/hr, 0 mls/hr Documented By: Titration: 02/16/23 14:16 Dose: 0 mg/hr, 0 mls/hr Documented By: Titration: 02/16/23 13:30 Dose: 12.5 mg/hr, 12.5 mls/hr Documented By: Titration: 02/16/23 13:20 Dose: 10 mg/hr, 10 mls/hr Documented By: Titration: 02/16/23 12:25 Dose: 7.5 mg/hr, 7.5 mls/hr Documented By: Admin: 02/16/23 11:35 Dose: 5 mg/hr, 5 mls/hr Documented By: SPF Lactated Ringer's (Lactated Ringers) 500 mls @ 1,000 mls/hr IV BOLUS ONE Stop: 02/16/23 12:06 Last Infusion: 02/16/23 13:29 Dose: 0 mls/hr Documented By: Admin: 02/16/23 11:46 Dose: 1,000 mls/hr Documented By: SPF Amiodarone HCl/Dextrose (Nexterone) 360 mg in 200 mls @ 33.333 mls/hr IV NOW ONE; Protocol Stop: 02/18/23 15:07 Last Admin: 02/18/23 09:39 Dose: 33.333 mls/hr, 33.33 mls/hr Documented By: KHOA Amiodarone HCl/Dextrose (Nexterone) 360 mg in 200 mls @ 16.7 mls/hr IV CONT LASHAY; Protocol Stop: 02/19/23 02:59 Last Admin: 02/18/23 15:28 Dose: 16.7 mls/hr, 16.7 mls/hr Documented By: KHOA Amiodarone HCl/Dextrose (Nexterone) 180 mg in 100 mls @ 16.7 mls/hr IV CONT LASHAY; Protocol Stop: 02/18/23 09:00 Metoprolol Tartrate (Metoprolol Tartrate 5 Mg/5 Ml Inj) 5 mg IV NOW ONE Stop: 02/16/23 14:10 Last Admin: 02/16/23 14:17 Dose: 5 mg Documented By: HERNAN Metoprolol Tartrate (Metoprolol Ir 25 Mg Tablet) 25 mg PO NOW ONE Stop: 02/16/23 15:34 Last Admin: 02/16/23 15:53 Dose: 25 mg Documented By: HERNAN Metoprolol Tartrate (Metoprolol Ir 25 Mg Tablet) 25 mg PO TID [facility] Last Admin: 02/16/23 20:12 Dose: 25 mg Documented By: MILLI Metoprolol Tartrate (Metoprolol Ir 25 Mg Tablet) 50 mg PO TID [facility] Last Admin: 02/18/23 20:27 Dose: 50 mg Documented By: Admin: 02/18/23 15:27 Dose: 50 mg Documented By: Admin: 02/18/23 08:38 Dose: 50 mg Documented By: Admin: 02/17/23 21:05 Dose: 50 mg Documented By: Admin: 02/17/23 14:43 Dose: 50 mg Documented By: Admin: 02/17/23 08:08 Dose: 50 mg Documented By: DHAVAL Naloxone HCl (Naloxone 0.4 Mg/Ml Vial) 0.2 mg IV Q2MIN PRN PRN Reason: Opiate Reversal Ondansetron HCl (Ondansetron 4 Mg/2 Ml Inj) 4 mg IV Q8HR PRN PRN Reason: Nausea And Vomiting Last Admin: 02/16/23 20:11 Dose: 4 mg Documented By: MILLI Vital Signs Vital signs: Vital Signs - 8 hr 02/16/23 10:12 02/16/23 10:20 02/16/23 10:14 Temperature 98.0 F Pulse Rate 102 H 136 H 137 H Respiratory Rate 20 20 Blood Pressure 150/75 H 136/51 L Pulse Oximetry 99 99 100 Oxygen Delivery Method Room Air Room Air 02/16/23 10:34 02/16/23 10:29 02/16/23 10:29 Temperature Pulse Rate 182 H 186 H Respiratory Rate 14 Blood Pressure 134/82 119/81 Pulse Oximetry 100 Oxygen Delivery Method 02/16/23 10:30 02/16/23 10:30 02/16/23 10:32 Temperature Pulse Rate 183 H 184 H Respiratory Rate 18 15 Blood Pressure 110/73 Pulse Oximetry 100 100 Oxygen Delivery Method 02/16/23 10:32 02/16/23 10:41 02/16/23 10:41 Temperature Pulse Rate 162 H Respiratory Rate 24 Blood Pressure 134/82 134/59 L Pulse Oximetry 99 Oxygen Delivery Method 02/16/23 10:50 02/16/23 10:50 02/16/23 11:00 Temperature Pulse Rate 171 H Respiratory Rate 16 Blood Pressure 139/74 121/72 Pulse Oximetry 99 Oxygen Delivery Method Room Air 02/16/23 11:00 02/16/23 11:10 02/16/23 11:10 Temperature Pulse Rate 170 H 175 H Respiratory Rate 22 17 Blood Pressure 133/96 H Pulse Oximetry 98 98 Oxygen Delivery Method 02/16/23 11:21 02/16/23 11:30 02/16/23 11:31 Temperature Pulse Rate 176 H 175 H Respiratory Rate 13 20 Blood Pressure 106/63 Pulse Oximetry 97 97 Oxygen Delivery Method Room Air 02/16/23 11:31 02/16/23 11:37 02/16/23 11:40 Temperature Pulse Rate 177 H 174 H Respiratory Rate 15 15 Blood Pressure 92/60 Pulse Oximetry 98 98 Oxygen Delivery Method Room Air 02/16/23 11:40 02/16/23 11:42 02/16/23 11:42 Temperature Pulse Rate 173 H 178 H Respiratory Rate 16 19 Blood Pressure 99/52 L Pulse Oximetry 97 97 Oxygen Delivery Method 02/16/23 11:45 02/16/23 11:45 02/16/23 11:48 Temperature Pulse Rate 175 H Respiratory Rate 22 Blood Pressure 109/64 112/55 L Pulse Oximetry 97 Oxygen Delivery Method Room Air 02/16/23 11:48 02/16/23 11:49 02/16/23 11:49 Temperature Pulse Rate 182 H 173 H Respiratory Rate 15 17 Blood Pressure 133/60 Pulse Oximetry 98 98 Oxygen Delivery Method Room Air 02/16/23 11:52 02/16/23 11:52 02/16/23 11:55 Temperature Pulse Rate 174 H Respiratory Rate 16 Blood Pressure 93/51 L 115/62 Pulse Oximetry 98 Oxygen Delivery Method 02/16/23 11:55 02/16/23 11:57 02/16/23 11:57 Temperature Pulse Rate 176 H 178 H Respiratory Rate 21 17 Blood Pressure 99/63 Pulse Oximetry 97 97 Oxygen Delivery Method Room Air 02/16/23 12:00 02/16/23 12:00 02/16/23 12:03 Temperature Pulse Rate 173 H Respiratory Rate 15 Blood Pressure 94/61 103/65 Pulse Oximetry 99 Oxygen Delivery Method 02/16/23 12:03 02/16/23 12:06 02/16/23 12:06 Temperature Pulse Rate 173 H 180 H Respiratory Rate 24 15 Blood Pressure 108/63 Pulse Oximetry 98 98 Oxygen Delivery Method Room Air 02/16/23 12:09 02/16/23 12:09 02/16/23 12:12 Temperature Pulse Rate 177 H 170 H Respiratory Rate 14 16 Blood Pressure 110/66 Pulse Oximetry 98 98 Oxygen Delivery Method 02/16/23 12:12 02/16/23 12:15 02/16/23 12:15 Temperature Pulse Rate 178 H Respiratory Rate 15 Blood Pressure 99/72 119/72 Pulse Oximetry 98 Oxygen Delivery Method Room Air 02/16/23 12:18 02/16/23 12:18 02/16/23 12:21 Temperature Pulse Rate 177 H Respiratory Rate 14 Blood Pressure 125/65 129/64 Pulse Oximetry 98 Oxygen Delivery Method 02/16/23 12:21 02/16/23 12:24 02/16/23 12:24 Temperature Pulse Rate 176 H 174 H Respiratory Rate 19 17 Blood Pressure 96/58 L Pulse Oximetry 98 98 Oxygen Delivery Method Room Air 02/16/23 12:27 02/16/23 12:27 02/16/23 12:30 Temperature Pulse Rate 170 H Respiratory Rate 20 Blood Pressure 101/73 112/86 Pulse Oximetry 99 Oxygen Delivery Method 02/16/23 12:30 02/16/23 12:33 02/16/23 12:33 Temperature Pulse Rate 171 H 172 H Respiratory Rate 20 24 Blood Pressure 114/94 H Pulse Oximetry 99 98 Oxygen Delivery Method Room Air Room Air 02/16/23 12:36 02/16/23 12:36 02/16/23 12:39 Temperature Pulse Rate 175 H Respiratory Rate 15 Blood Pressure 132/95 H 111/90 Pulse Oximetry 99 Oxygen Delivery Method 02/16/23 12:39 02/16/23 12:42 02/16/23 12:42 Temperature Pulse Rate 173 H 172 H Respiratory Rate 17 15 Blood Pressure 102/73 Pulse Oximetry 99 98 Oxygen Delivery Method 02/16/23 12:45 02/16/23 12:45 02/16/23 12:48 Temperature Pulse Rate 171 H Respiratory Rate 17 Blood Pressure 91/73 111/81 Pulse Oximetry 98 Oxygen Delivery Method 02/16/23 12:48 02/16/23 12:51 02/16/23 12:51 Temperature Pulse Rate 167 H 173 H Respiratory Rate 19 19 Blood Pressure 98/59 L Pulse Oximetry 99 99 Oxygen Delivery Method Room Air 02/16/23 12:54 02/16/23 12:54 02/16/23 12:57 Temperature Pulse Rate 168 H Respiratory Rate 21 Blood Pressure 107/72 95/65 Pulse Oximetry 98 Oxygen Delivery Method 02/16/23 12:57 02/16/23 13:00 02/16/23 13:00 Temperature Pulse Rate 175 H 172 H Respiratory Rate 22 19 Blood Pressure 98/70 Pulse Oximetry 99 99 Oxygen Delivery Method Room Air 02/16/23 13:03 02/16/23 13:06 02/16/23 13:06 Temperature Pulse Rate 173 H 171 H Respiratory Rate 20 24 Blood Pressure 106/70 Pulse Oximetry 98 98 Oxygen Delivery Method 02/16/23 13:09 02/16/23 13:09 02/16/23 13:12 Temperature Pulse Rate 175 H Respiratory Rate 23 Blood Pressure 108/68 110/77 Pulse Oximetry 98 Oxygen Delivery Method 02/16/23 13:12 02/16/23 13:15 02/16/23 13:15 Temperature Pulse Rate 173 H 164 H Respiratory Rate 25 H 23 Blood Pressure 115/67 Pulse Oximetry 99 99 Oxygen Delivery Method 02/16/23 13:18 02/16/23 13:18 02/16/23 13:24 Temperature Pulse Rate 173 H Respiratory Rate 23 Blood Pressure 131/58 L 143/82 H Pulse Oximetry 98 Oxygen Delivery Method Room Air 02/16/23 13:24 02/16/23 13:27 02/16/23 13:27 Temperature Pulse Rate 171 H 172 H Respiratory Rate 17 21 Blood Pressure 137/63 Pulse Oximetry 99 99 Oxygen Delivery Method Room Air 02/16/23 13:30 02/16/23 13:30 02/16/23 13:33 Temperature Pulse Rate 139 H Respiratory Rate 20 Blood Pressure 138/62 113/56 L Pulse Oximetry 99 Oxygen Delivery Method 02/16/23 13:33 02/16/23 13:36 02/16/23 13:36 Temperature Pulse Rate 164 H 174 H Respiratory Rate 19 21 Blood Pressure 120/59 L Pulse Oximetry 98 99 Oxygen Delivery Method 02/16/23 13:39 02/16/23 13:39 02/16/23 13:42 Temperature Pulse Rate 173 H Respiratory Rate 18 Blood Pressure 133/87 123/86 Pulse Oximetry 98 Oxygen Delivery Method Room Air 02/16/23 13:42 02/16/23 13:45 02/16/23 13:45 Temperature Pulse Rate 166 H 160 H Respiratory Rate 17 20 Blood Pressure 106/84 Pulse Oximetry 98 99 Oxygen Delivery Method 02/16/23 13:49 02/16/23 13:49 02/16/23 13:55 Temperature Pulse Rate 165 H 170 H Respiratory Rate 26 H 25 H Blood Pressure 134/59 L Pulse Oximetry 98 98 Oxygen Delivery Method Room Air 02/16/23 13:55 02/16/23 14:00 02/16/23 14:01 Temperature Pulse Rate 177 H Respiratory Rate 16 Blood Pressure 178/123 H 130/62 Pulse Oximetry 99 Oxygen Delivery Method 02/16/23 14:01 02/16/23 14:10 02/16/23 14:10 Temperature Pulse Rate 178 H 178 H Respiratory Rate 18 17 Blood Pressure 108/61 Pulse Oximetry 98 98 Oxygen Delivery Method Room Air 02/16/23 14:26 02/16/23 14:26 02/16/23 14:30 Temperature Pulse Rate 157 H Respiratory Rate 26 H Blood Pressure 111/63 115/68 Pulse Oximetry 98 Oxygen Delivery Method Room Air 02/16/23 14:30 02/16/23 14:40 02/16/23 14:40 Temperature Pulse Rate 152 H 157 H Respiratory Rate 22 21 Blood Pressure 112/78 Pulse Oximetry 98 97 Oxygen Delivery Method Room Air 02/16/23 14:50 02/16/23 14:50 02/16/23 15:00 Temperature Pulse Rate 158 H Respiratory Rate 15 Blood Pressure 121/69 93/59 L Pulse Oximetry 97 Oxygen Delivery Method Room Air 02/16/23 15:00 02/16/23 15:10 02/16/23 15:10 Temperature Pulse Rate 159 H 155 H Respiratory Rate 18 17 Blood Pressure 94/50 L Pulse Oximetry 97 97 Oxygen Delivery Method 02/16/23 15:12 02/16/23 15:13 02/16/23 15:13 Temperature Pulse Rate 156 H 162 H Respiratory Rate 26 H Blood Pressure 103/59 L Pulse Oximetry 97 97 Oxygen Delivery Method Room Air 02/16/23 15:21 02/16/23 15:21 Temperature Pulse Rate 166 H Respiratory Rate 17 Blood Pressure 137/65 Pulse Oximetry 96 Oxygen Delivery Method Room Air MDM - Arrhythmia/Palpitations Lab Data 02/16/23 10:37 02/16/23 10:37 Labs: Lab Results 02/16/23 02/16/23 02/16/23 Range/Units 10:37 10:37 10:37 WBC (4.5-11.0) X10^3/uL RBC (4.0-5.2) X10^6/uL Hgb (12.0-16.0) g/dL Hct (36-46) % MCV (80-100) fL MCH (26-34) PG MCHC (30-36) % RDW (11.6-14.8) % Plt Count (150-400) X10^3/uL Neut % (Auto) (50-75) % Lymph % (Auto) (25-40) % Love % (Auto) (3-14) % Eos % (Auto) (2-4) % Baso % (Auto) (0-2) % Neut # (Auto) (9045-3563) /uL Lymph # (Auto) (7348-1771) /uL Love # (Auto) (0-900) /uL Eos # (Auto) (0-450) /uL Baso # (Auto) (0-100) /uL PT 15.2 H (10.1-12.7) SECONDS INR 1.3 (0.9-1.3) APTT 28 (26-36) SECONDS Sodium (137-145) mmol/L Potassium (3.4-5.1) mmol/L Chloride (98-107) mmol/L Carbon Dioxide (22-32) mmol/L BUN (7-17) mg/dL Creatinine (0.52-1.04) mg/dL Estimated GFR (>60) mL/min BUN/Creatinine Ratio (6-22) Glucose (80-110) mg/dL Calcium (8.4-10.2) mg/dL Magnesium 2.0 (1.6-2.3) mg/dL Total Bilirubin (0.2-1.3) mg/dL AST (14-36) IU/L ALT (<35) IU/L Alkaline Phosphatase (38-126) U/L Total Creatine Kinase (30-135) U/L CK-MB (CK-2) CK-MB (CK-2) Rel Index Troponin I (0.01-0.034) ng/mL Total Protein (6.3-8.2) g/dL Albumin (3.5-5.0) g/dL Globulin (1.7-4.1) g/dL Albumin/Globulin Ratio (1.0-2.8) TSH 1.81 (0.47-4.68) uIU/mL Nasal Screen MRSA (PCR) (Not Detect) 02/16/23 02/16/23 02/16/23 Range/Units 10:37 10:37 16:30 WBC 9.2 (4.5-11.0) X10^3/uL RBC 3.80 L (4.0-5.2) X10^6/uL Hgb 11.6 L (12.0-16.0) g/dL Hct 34.2 L (36-46) % MCV 90.0 (80-100) fL MCH 30.6 (26-34) PG MCHC 34.0 (30-36) % RDW 14.0 (11.6-14.8) % Plt Count 294 (150-400) X10^3/uL Neut % (Auto) 50.1 (50-75) % Lymph % (Auto) 43.2 H (25-40) % Love % (Auto) 6.4 (3-14) % Eos % (Auto) 0.3 L (2-4) % Baso % (Auto) 0.0 (0-2) % Neut # (Auto) 4600 (3205-9010) /uL Lymph # (Auto) 4000 (9383-1517) /uL Love # (Auto) 600 (0-900) /uL Eos # (Auto) 0 (0-450) /uL Baso # (Auto) 0 (0-100) /uL PT (10.1-12.7) SECONDS INR (0.9-1.3) APTT (26-36) SECONDS Sodium 136 L (137-145) mmol/L Potassium 3.9 (3.4-5.1) mmol/L Chloride 105 (98-107) mmol/L Carbon Dioxide 21 L (22-32) mmol/L BUN 13 (7-17) mg/dL Creatinine 1.01 (0.52-1.04) mg/dL Estimated GFR 58 L (>60) mL/min BUN/Creatinine Ratio 12.9 (6-22) Glucose 154 H (80-110) mg/dL Calcium 9.2 (8.4-10.2) mg/dL Magnesium (1.6-2.3) mg/dL Total Bilirubin 0.8 (0.2-1.3) mg/dL AST 34 (14-36) IU/L ALT 47 H (<35) IU/L Alkaline Phosphatase 121 (38-126) U/L Total Creatine Kinase 38 (30-135) U/L CK-MB (CK-2) TNP CK-MB (CK-2) Rel Index TNP Troponin I < 0.012 (0.01-0.034) ng/mL Total Protein 6.8 (6.3-8.2) g/dL Albumin 4.1 (3.5-5.0) g/dL Globulin 2.7 (1.7-4.1) g/dL Albumin/Globulin Ratio 1.5 (1.0-2.8) TSH (0.47-4.68) uIU/mL Nasal Screen MRSA (PCR) Not detected (Not Detect) Imaging Data Chest x-ray: Radiologist's Impresson: [address] [address] XRay Report Signed Patient: Alexandra Chi MR#: [id number] : 1950 Acct:[id number] Age/Sex: 72 / F Date of Service: 02/16/23 Loc: ED Accession Number: [id number] ?? Procedure: XR chest 1V Ordering Provider: Jay Hollins MD PROCEDURE:? XR CHEST 1V ? INDICATIONS:? chest pain ? TECHNIQUE:? One view of the chest was acquired.? ? COMPARISON:? None. ? FINDINGS:? ? Surgical changes and devices:? None.? ? Lungs and pleura:? There is mild pulmonary vascular congestion.? Heart size is enlarged.? Trace bilateral pleural effusion is seen.? No gross pneumothorax. ? Mediastinum:? Mediastinal contours appear normal.? Heart size is mildly enlarged. ? Bones and chest wall:? No suspicious bony lesions.? Overlying soft tissues appear unremarkable.? ? IMPRESSION:? Trace bilateral pleural effusion and mild pulmonary vascular congestion.? No focal infiltrate.? No gross pneumothorax.? ? ? Dictated by: Todd Brizuela M.D. on 02/16/2023 at 11:03 ? ? Approved by: Todd Brizuela M.D. on 02/16/2023 at 11:04 ? [facility] Narrative Medical decision making narrative: Patient here with . Patient states symptoms started this past Wednesday at 3:00 a.m. in the morning. Wiley very short of breath. Worse with exertion. Denies any chest pain or dyspnea. No palpitations. No black or bloody stools. No history of hypothyroidism. This never happened to her before. She states she had some slight edema of her ankles yesterday. No calf pain. No prior history atrial fibrillation or arrhythmia. No history of CHF. Patient in no distress. Patient has seen urgent care just prior to arrival and sent here for further evaluation. No history of heart attack strokes or diabetes After history and exam CBC CMP troponin EKG magnesium TSH chest x-ray echocardiogram [facility] CC: Dyspnea Complicating co-morbidities: None Data collected from: Patient and Medical records reviewed: Walk-in clinic notes just prior to arrival at this facility Differential considered: Includes but not limited to new onset atrial fibrillation, atrial flutter, SVT, hypothyroidism hypothyroidism electrolyte imbalance Exam documented above, pertinent findings include: Irregular irregular heart rate and rhythm Lab Test results independently reviewed as above. Pertinent findings: WBC 9.2 hemoglobin 11.6 INR 1.3 sodium 136 potassium 3.9 GFR 58 calcium 9.2 magnesium 2.0 troponin less than 0.012 Independently reviewed EKG atrial fibrillation with RVR rate 180 Imaging studies independently reviewed: Chest x-ray trace bilateral pleural effusion. Consultations: 2:10 p[address].. Spoke with cardiology dr baron, recommends giving Lopressor 5 mg IV now in conjunction with ongoing Cardizem drip 3:30 p.m.. Spoke with hospitalist, Dr. Arthur, he will admit patient. He would like patient to have metoprolol tartrate 25 mg by mouth. He would like to admit patient to ICU Treatments: Cardizem Lopressor normal saline Re-evaluations: Patient heart rate remains elevated. Patient given Cardizem as well as IV Lopressor. However blood pressure has remained stable. Patient and to agree and understand for admission. Discussion: Appropriate for admission for new onset atrial fibrillation. Patient will need rate control and anticoagulation. Diagnosis: New onset atrial fibrillation Critical Care Time Critical Care Time Attestation: Critical Care Time 35 minutes: Critical care time is separate from other billable procedures. This critical care time includes consultation with family and other consulting doctors, review of records, and interpretation of data from labs, EKGs, imaging, etc. Discharge Plan Departure Patient Disposition: Admitted As Inpatient Clinical Impression: Atrial fibrillation, new onset Admit Date/Time: 02/17/23 13:14 Admit Provider: Octavio Collins
--- NOTE | 2023-02-16 10:27 | DI.ECHO.S_ITS ---
[facility] +---------+ : : [address] : [place] : : : : [id number] : : : : Phone: [phone]+ Echocardiogram Report + + :Name: LUIS EDUARDO MATHIS Study Date: 02/17/2023 Height: 65 in : :[facility] ReadingLocation: Weight: 187 lb : : Gender: Female BSA: 1.9 m2 : :: 1950 Age: 72 yrs BP: 106/53 mmHg: :Reason For Study: DYSPNEA : :Ordering Physician: AGUEDA, : :NEGAR Performed By: Liza Nguyen : :Referring: NEGAR ROMEO : + + Interpretation Summary 1) Nomral left ventricular size and thickness with moderatley to severely reduced systolic function (EF 30-35%). 2) Normal right ventricular size with mildly to moderately reduced function. 3) There is mild to moderate mitral regurgitation. 4) There is mild to moderate tricuspid regurgitation. 5) The IVC is dilated (diameter is greater than 2.1 cm) and it collapses less than 50% with a sniff. This suggests a high right atrial pressure of 15 mm Hg. 6) No prior Echo available for comparison. Procedure: A two-dimensional transthoracic echocardiogram with color flow and Doppler was performed. The study quality was technically adequate. There is no prior echocardiogram noted for this patient. The patient was in atrial fibrillation with heart rates between 73-95 bpm during the exam. Left Ventricle: The left ventricle is normal in size and wall thickness. The ejection fraction is estimated to be 30-35%. Diastolic function could not be accurately assessed due to atrial fibrillation. Right Ventricle: The right ventricle is normal size. Right ventricular systolic function is mild to moderately reduced. Mitral Valve: The mitral valve leaflets appear mildly thickened, but open well. There is mild to moderate mitral regurgitation. There are multiple regurgitant jets present. Aortic Valve: The aortic valve opens well. There is no aortic valve stenosis. No aortic regurgitation is present. Tricuspid Valve: The tricuspid valve is normal in structure and function. There is mild to moderate tricuspid regurgitation. The right ventricular systolic pressure is estimated to be at least 40 mmHg based on an estimated right atrial pressure of 15 mm Hg. Pulmonic Valve: The pulmonic valve is not well visualized. There is trace pulmonic regurgitation. Great Vessels: The aortic root is normal size. The dimensions of the ascending aorta are normal. The IVC is dilated (diameter is greater than 2.1 cm) and it collapses less than 50% with a sniff. This suggests a high right atrial pressure of 15 mm Hg. Pericardium/ Pleura There is no pericardial effusion. There is no pleural effusion. MMode/2D Measurements & Calculations LVIDd: 4.3 cm LVOT diam: 1.9 cm LVIDs: 3.5 cm Ao root diam: 2.7 cm FS: 18.1 % asc Aorta Diam: 2.6 cm EPSS: 1.1 cm Ao Arch Diam (Prox Trans): 2.6 cm IVSd: 0.70 cm LVPWd: 0.65 cm LV power. diameter/BSA (cm/m^2): 2.2 LV sys. diameter/BSA (cm/m^2): 1.8 LA A2 area: 20.9 cm2 RA long axis: 5.4 cm LA A4 area: 22.9 cm2 RA area: 21.0 cm2 LA length (vol): 5.7 cm RA vol: 69.9 ml LA vol: 71.2 ml RA : 36.4 ml/m2 LA vol index: 37.0 ml/m2 IVC diam: 2.2 cm TAPSE: 1.3 cm Doppler Measurements & Calculations Ao V2 max: 72.5 cm/sec LVOT Max Luis Carlos: 63.2 cm/sec Ao V2 mean: 53.9 cm/sec LV V1 max P.6 mmHg Ao max P.1 mmHg LV V1 VTI: 11.5 cm Ao mean P.3 mmHg SHELLIE(I,D): 2.5 cm2 Ao V2 VTI: 12.9 cm SHELLIE(V,D): 2.5 cm2 sev ratio: 0.90 SHELLIE indexed to BSA (cm^2/m^2): 1.3 MV E max luis carlos: 94.5 cm/sec TR max luis carlos: 248.9 cm/sec MV A max luis carlos: 2.6 cm/sec TR max P.8 mmHg MV E/A: 36.3 PA pr(Accel): 27.6 mmHg Med Peak E' Luis Carlos: 11.2 cm/sec E/E' med: 8.4 Lat Peak E' Luis Carlos: 8.5 cm/sec E/E' lat: 11.2 E/e' average: 9.8 MV dec time: 0.16 sec SV(LVOT): 32.7 ml Reading Physician:12:26 PM
[2023-02-16] MEDS: APIXABAN 5 MG TABLET PO ×2 (10:34→20:12)
[2023-02-16] MEDS: dilTIAZem 5 MG/ML SDV 10 MG IV (10:34)
[2023-02-16 10:47] LABS: Add Manual Diff / Slide Review NO; Basophils Absolute Auto 0 /uL (0-100); Eosinophils Absolute Auto 0 /uL (0-450); Eosinophils Percent Auto 0.3 % (2-4); Hematocrit 34.2 % (36-46); Hemoglobin 11.6 g/dL (12.0-16.0); Lymphocytes Absolute Auto 4000 /uL (1100-4500); Lymphocytes Percent Auto 43.2 % (25-40); Mean Corpuscular Hemoglobin 30.6 PG (26-34); Monocytes Absolute Auto 600 /uL (0-900); Monocytes Percent Auto 6.4 % (3-14); Neutrophils Absolute Auto 4600 /uL (1500-7000); Neutrophils Percent Auto 50.1 % (50-75); Platelet Count 294 X10^3/uL (150-400); White Blood Cell Count 9.2 X10^3/uL (4.5-11.0)
[2023-02-16 10:58] LABS: INR 1.3 (0.9-1.3); Prothrombin Time 15.2 SECONDS (10.1-12.7)
[2023-02-16 11:00] LABS: PTT Partial Thromboplastin Tim 28 SECONDS (26-36)
[2023-02-16 11:02] LABS: Alanine Aminotransferase 47 IU/L (<35); Albumin 4.1 g/dL (3.5-5.0); Albumin Globulin Ratio 1.5 (1.0-2.8); Alkaline Phosphatase 121 U/L (38-126); Aspartate Aminotransferase 34 IU/L (14-36); BUN Creatinine Ratio 12.9 (6-22); Bilirubin Total 0.8 mg/dL (0.2-1.3); Blood Urea Nitrogen 13 mg/dL (7-17); Calcium 9.2 mg/dL (8.4-10.2); Carbon Dioxide 21 mmol/L (22-32); Chloride 105 mmol/L (98-107); Creatine Kinase 38 U/L (30-135); Estimated Glomerular Filt Rate 58 mL/min (>60); Globulin 2.7 g/dL (1.7-4.1); Glucose 154 mg/dL (80-110); HEMOLYSIS < 15 (0-50); Potassium 3.9 mmol/L (3.4-5.1); Sodium 136 mmol/L (137-145); Total Protein 6.8 g/dL (6.3-8.2)
[2023-02-16 11:14] LABS: Troponin I < 0.012 ng/mL (0.01-0.034)
[2023-02-16 11:33] LABS: Thyroid Stimulating Hormone 1.81 uIU/mL (0.47-4.68)
[2023-02-16] MEDS: DILTIAZEM 125 MG/125 ML PIGGYBACK IV (11:35)
[2023-02-16] MEDS: LACTATED RINGERS 500 ML 1000 ML IV (11:46)
--- NOTE | 2023-02-16 11:59 | PC.NURSE ---
Provider states we will increase diltiazem drip dosage rate by increments of 2.5mg/hr as necessary.
[2023-02-16] MEDS: METOPROLOL TARTRATE 5 MG/5 ML INJ IV (14:17)
[2023-02-16] MEDS: METOPROLOL IR 25 MG TABLET PO ×2 (15:53→20:12)
--- NOTE | 2023-02-16 16:42 | PM.HP.1 ---
History of Present Illness History of Present Illness Date Patient Seen: 02/16/23 Time Patient Seen: 16:30 Chief complaint: sent by [facility]/ heart issues Narrative: 72 F with PMH of anal cancer in remission, chronic back pain presenting with dyspnea for the past three days. Patient states she has intermittent shortness of breath, not related to exertion or positional changes since Wednesday. She did not feel fever, chills, chest pain, palpitations, abdominal pain, dysuria, urinary frequency, nausea, vomiting, orthopnea, or lower extremity edema. She initially presented to urgent care, was found to be in rapid afib and sent to the emergency room. Her HR was as fast as the 180s, she had minimal improvement with initial diltiazem infusion, but also no response to IV labetalol. She was admitted for further management of afib with RVR on a diltiazem infusion. EKG confirmed afib with RVR (rate 180) without obvious acute ischemia but non-specific ST and T wave changes (TWI in V5, borderline ST depressions likely due to baseline wander). CXR showed trace bilateral pleural effusion with vascular congestion. [facility] Medical History Anal cancer Arthritis Facet arthropathy, lumbar Foraminal stenosis of lumbosacral region GERD (gastroesophageal reflux disease) Hyperlipidemia Lumbosacral spondylosis with radiculopathy Pollen allergies Ulcer Vertigo Surgical History No pertinent past surgical history Family History Mother Diabetes mellitus Sister Diabetes mellitus Social History household members: spouse Smoking Status: Never smoker alcohol intake: current Meds Home Medications and Allergies Home Medications Medication Instructions Recorded Confirmed Type acetaminophen 500 mg tablet 500 mg PO Q6H PRN Pain, Moderate 12/30/18 02/16/23 History (Tylenol Extra Strength) [id number] acid 1 mcg PO DAILY 12/30/18 02/16/23 History 400 mcg-vitamin K 80 mcg capsule (Multi For Her 50 Plus) vitamin E 200 unit capsule 180 unit PO DAILY 12/30/18 02/16/23 History cholecalciferol (vitamin D3) 50 50 mcg PO DAILY 02/26/21 02/16/23 History mcg (2,000 unit) capsule celecoxib 200 mg capsule (Celebrex) 200 mg PO DAILY Arthritis pain #90 06/03/22 02/16/23 Rx caps gabapentin 300 mg capsule 300 mg PO BID #360 caps 06/03/22 02/16/23 Rx green tea leaf extract 1 cap PO DAILY 02/16/23 02/16/23 History Allergies Allergy/AdvReac Type Severity Reaction Status Date / Time No Known Drug Allergies Allergy Verified 02/16/23 09:41 Review of Systems Review of Systems Narrative: All other systems reviewed with the patient and are negative unless otherwise stated. Exam Vital Signs (past 8 hours): - 02/16/23 10:12 02/16/23 10:20 02/16/23 10:14 Temperature 98.0 F Pulse Rate 102 H 136 H 137 H Respiratory Rate 20 20 Blood Pressure 150/75 H 136/51 L Pulse Oximetry 99 99 100 Oxygen Delivery Method Room Air Room Air 02/16/23 10:34 02/16/23 10:29 02/16/23 10:29 Temperature Pulse Rate 182 H 186 H Respiratory Rate 14 Blood Pressure 134/82 119/81 Pulse Oximetry 100 Oxygen Delivery Method 02/16/23 10:30 02/16/23 10:30 02/16/23 10:32 Temperature Pulse Rate 183 H 184 H Respiratory Rate 18 15 Blood Pressure 110/73 Pulse Oximetry 100 100 Oxygen Delivery Method 02/16/23 10:32 02/16/23 10:41 02/16/23 10:41 Temperature Pulse Rate 162 H Respiratory Rate 24 Blood Pressure 134/82 134/59 L Pulse Oximetry 99 Oxygen Delivery Method 02/16/23 10:50 02/16/23 10:50 02/16/23 11:00 Temperature Pulse Rate 171 H Respiratory Rate 16 Blood Pressure 139/74 121/72 Pulse Oximetry 99 Oxygen Delivery Method Room Air 02/16/23 11:00 02/16/23 11:10 02/16/23 11:10 Temperature Pulse Rate 170 H 175 H Respiratory Rate 22 17 Blood Pressure 133/96 H Pulse Oximetry 98 98 Oxygen Delivery Method 02/16/23 11:21 02/16/23 11:30 02/16/23 11:31 Temperature Pulse Rate 176 H 175 H Respiratory Rate 13 20 Blood Pressure 106/63 Pulse Oximetry 97 97 Oxygen Delivery Method Room Air 02/16/23 11:31 02/16/23 11:37 02/16/23 11:40 Temperature Pulse Rate 177 H 174 H Respiratory Rate 15 15 Blood Pressure 92/60 Pulse Oximetry 98 98 Oxygen Delivery Method Room Air 02/16/23 11:40 02/16/23 11:42 02/16/23 11:42 Temperature Pulse Rate 173 H 178 H Respiratory Rate 16 19 Blood Pressure 99/52 L Pulse Oximetry 97 97 Oxygen Delivery Method 02/16/23 11:45 02/16/23 11:45 02/16/23 11:48 Temperature Pulse Rate 175 H Respiratory Rate 22 Blood Pressure 109/64 112/55 L Pulse Oximetry 97 Oxygen Delivery Method Room Air 02/16/23 11:48 02/16/23 11:49 02/16/23 11:49 Temperature Pulse Rate 182 H 173 H Respiratory Rate 15 17 Blood Pressure 133/60 Pulse Oximetry 98 98 Oxygen Delivery Method Room Air 02/16/23 11:52 02/16/23 11:52 02/16/23 11:55 Temperature Pulse Rate 174 H Respiratory Rate 16 Blood Pressure 93/51 L 115/62 Pulse Oximetry 98 Oxygen Delivery Method 02/16/23 11:55 02/16/23 11:57 02/16/23 11:57 Temperature Pulse Rate 176 H 178 H Respiratory Rate 21 17 Blood Pressure 99/63 Pulse Oximetry 97 97 Oxygen Delivery Method Room Air 02/16/23 12:00 02/16/23 12:00 02/16/23 12:03 Temperature Pulse Rate 173 H Respiratory Rate 15 Blood Pressure 94/61 103/65 Pulse Oximetry 99 Oxygen Delivery Method 02/16/23 12:03 02/16/23 12:06 02/16/23 12:06 Temperature Pulse Rate 173 H 180 H Respiratory Rate 24 15 Blood Pressure 108/63 Pulse Oximetry 98 98 Oxygen Delivery Method Room Air 02/16/23 12:09 02/16/23 12:09 02/16/23 12:12 Temperature Pulse Rate 177 H 170 H Respiratory Rate 14 16 Blood Pressure 110/66 Pulse Oximetry 98 98 Oxygen Delivery Method 02/16/23 12:12 02/16/23 12:15 02/16/23 12:15 Temperature Pulse Rate 178 H Respiratory Rate 15 Blood Pressure 99/72 119/72 Pulse Oximetry 98 Oxygen Delivery Method Room Air 02/16/23 12:18 02/16/23 12:18 02/16/23 12:21 Temperature Pulse Rate 177 H Respiratory Rate 14 Blood Pressure 125/65 129/64 Pulse Oximetry 98 Oxygen Delivery Method 02/16/23 12:21 02/16/23 12:24 02/16/23 12:24 Temperature Pulse Rate 176 H 174 H Respiratory Rate 19 17 Blood Pressure 96/58 L Pulse Oximetry 98 98 Oxygen Delivery Method Room Air 02/16/23 12:27 02/16/23 12:27 02/16/23 12:30 Temperature Pulse Rate 170 H Respiratory Rate 20 Blood Pressure 101/73 112/86 Pulse Oximetry 99 Oxygen Delivery Method 02/16/23 12:30 02/16/23 12:33 02/16/23 12:33 Temperature Pulse Rate 171 H 172 H Respiratory Rate 20 24 Blood Pressure 114/94 H Pulse Oximetry 99 98 Oxygen Delivery Method Room Air Room Air 02/16/23 12:36 02/16/23 12:36 02/16/23 12:39 Temperature Pulse Rate 175 H Respiratory Rate 15 Blood Pressure 132/95 H 111/90 Pulse Oximetry 99 Oxygen Delivery Method 02/16/23 12:39 02/16/23 12:42 02/16/23 12:42 Temperature Pulse Rate 173 H 172 H Respiratory Rate 17 15 Blood Pressure 102/73 Pulse Oximetry 99 98 Oxygen Delivery Method 02/16/23 12:45 02/16/23 12:45 02/16/23 12:48 Temperature Pulse Rate 171 H Respiratory Rate 17 Blood Pressure 91/73 111/81 Pulse Oximetry 98 Oxygen Delivery Method 02/16/23 12:48 02/16/23 12:51 02/16/23 12:51 Temperature Pulse Rate 167 H 173 H Respiratory Rate 19 19 Blood Pressure 98/59 L Pulse Oximetry 99 99 Oxygen Delivery Method Room Air 02/16/23 12:54 02/16/23 12:54 02/16/23 12:57 Temperature Pulse Rate 168 H Respiratory Rate 21 Blood Pressure 107/72 95/65 Pulse Oximetry 98 Oxygen Delivery Method 02/16/23 12:57 02/16/23 13:00 02/16/23 13:00 Temperature Pulse Rate 175 H 172 H Respiratory Rate 22 19 Blood Pressure 98/70 Pulse Oximetry 99 99 Oxygen Delivery Method Room Air 02/16/23 13:03 02/16/23 13:06 02/16/23 13:06 Temperature Pulse Rate 173 H 171 H Respiratory Rate 20 24 Blood Pressure 106/70 Pulse Oximetry 98 98 Oxygen Delivery Method 02/16/23 13:09 02/16/23 13:09 02/16/23 13:12 Temperature Pulse Rate 175 H Respiratory Rate 23 Blood Pressure 108/68 110/77 Pulse Oximetry 98 Oxygen Delivery Method 02/16/23 13:12 02/16/23 13:15 02/16/23 13:15 Temperature Pulse Rate 173 H 164 H Respiratory Rate 25 H 23 Blood Pressure 115/67 Pulse Oximetry 99 99 Oxygen Delivery Method 02/16/23 13:18 02/16/23 13:18 02/16/23 13:24 Temperature Pulse Rate 173 H Respiratory Rate 23 Blood Pressure 131/58 L 143/82 H Pulse Oximetry 98 Oxygen Delivery Method Room Air 02/16/23 13:24 02/16/23 13:27 02/16/23 13:27 Temperature Pulse Rate 171 H 172 H Respiratory Rate 17 21 Blood Pressure 137/63 Pulse Oximetry 99 99 Oxygen Delivery Method Room Air 02/16/23 13:30 02/16/23 13:30 02/16/23 13:33 Temperature Pulse Rate 139 H Respiratory Rate 20 Blood Pressure 138/62 113/56 L Pulse Oximetry 99 Oxygen Delivery Method 02/16/23 13:33 02/16/23 13:36 02/16/23 13:36 Temperature Pulse Rate 164 H 174 H Respiratory Rate 19 21 Blood Pressure 120/59 L Pulse Oximetry 98 99 Oxygen Delivery Method 02/16/23 13:39 02/16/23 13:39 02/16/23 13:42 Temperature Pulse Rate 173 H Respiratory Rate 18 Blood Pressure 133/87 123/86 Pulse Oximetry 98 Oxygen Delivery Method Room Air 02/16/23 13:42 02/16/23 13:45 02/16/23 13:45 Temperature Pulse Rate 166 H 160 H Respiratory Rate 17 20 Blood Pressure 106/84 Pulse Oximetry 98 99 Oxygen Delivery Method 02/16/23 13:49 02/16/23 13:49 02/16/23 13:55 Temperature Pulse Rate 165 H 170 H Respiratory Rate 26 H 25 H Blood Pressure 134/59 L Pulse Oximetry 98 98 Oxygen Delivery Method Room Air 02/16/23 13:55 02/16/23 14:00 02/16/23 14:01 Temperature Pulse Rate 177 H Respiratory Rate 16 Blood Pressure 178/123 H 130/62 Pulse Oximetry 99 Oxygen Delivery Method 02/16/23 14:01 02/16/23 14:10 02/16/23 14:10 Temperature Pulse Rate 178 H 178 H Respiratory Rate 18 17 Blood Pressure 108/61 Pulse Oximetry 98 98 Oxygen Delivery Method Room Air 02/16/23 14:26 02/16/23 14:26 02/16/23 14:30 Temperature Pulse Rate 157 H Respiratory Rate 26 H Blood Pressure 111/63 115/68 Pulse Oximetry 98 Oxygen Delivery Method Room Air 02/16/23 14:30 02/16/23 14:40 02/16/23 14:40 Temperature Pulse Rate 152 H 157 H Respiratory Rate 22 21 Blood Pressure 112/78 Pulse Oximetry 98 97 Oxygen Delivery Method Room Air 02/16/23 14:50 02/16/23 14:50 02/16/23 15:00 Temperature Pulse Rate 158 H Respiratory Rate 15 Blood Pressure 121/69 93/59 L Pulse Oximetry 97 Oxygen Delivery Method Room Air 02/16/23 15:00 02/16/23 15:10 02/16/23 15:10 Temperature Pulse Rate 159 H 155 H Respiratory Rate 18 17 Blood Pressure 94/50 L Pulse Oximetry 97 97 Oxygen Delivery Method 02/16/23 15:12 02/16/23 15:13 02/16/23 15:13 Temperature Pulse Rate 156 H 162 H Respiratory Rate 26 H Blood Pressure 103/59 L Pulse Oximetry 97 97 Oxygen Delivery Method Room Air 02/16/23 15:21 02/16/23 15:21 02/16/23 15:30 Temperature Pulse Rate 166 H 167 H Respiratory Rate 17 21 Blood Pressure 137/65 Pulse Oximetry 96 97 Oxygen Delivery Method Room Air 02/16/23 15:31 02/16/23 15:31 Temperature Pulse Rate 167 H Respiratory Rate 24 Blood Pressure 153/56 H Pulse Oximetry 97 Oxygen Delivery Method Oxygen Delivery Method Room Air Narrative Exam Narrative: General:? Patient is well developed and well nourished, in no distress at this time. HEENT:? Normocephalic, atraumatic, extraocular muscles intact, oral pharynx is clear and mucous membranes are moist. Neck: supple and symmetric, trachea is midline, no cervical adenopathy. Negative for JVD Chest:? Normal AP diameter and contour without kyphoscoliosis, no tachypnea, equal chest rise bilaterally. Lungs:? CTA b/l no wheezing rhonchi or rales. Cardio:? Tachycardic, irregularly irregular with no murmurs, rubs, or gallops Abdomen: S NT ND. No CVA tenderness. Musculoskeletal:? Muscle strength and tone are equal within normal limits, no deformity. Extremities: trace bilateral non-pitting edema, joint effusions. No cyanosis or clubbing. Skin:? Pale,? Warm to touch,dry and intact without rashes, ulcerations or petechiae.? Neuro:? Alert and orientated x3,? sensation to touch intact in all extremities, no gross deficits noted of cranial nerves. Psych:? Patient has a well-kept appearance, appropriate affect, mental status attitude thought context and judgment are appropriate for age. Objective ECG Impression: afib with RVR (rate 180) without obvious acute ischemia but non-specific ST and T wave changes (TWI in V5, borderline ST depressions likely due to baseline wander) Labs 02/16/23 10:37 02/16/23 10:37 Labs: Laboratory Results - last 24 hr 02/16/23 02/16/23 02/16/23 10:37 10:37 10:37 WBC RBC Hgb Hct MCV MCH MCHC RDW Plt Count Neut % (Auto) Lymph % (Auto) Griggs % (Auto) Eos % (Auto) Baso % (Auto) Neut # (Auto) Lymph # (Auto) Griggs # (Auto) Eos # (Auto) Baso # (Auto) PT 15.2 H INR 1.3 APTT 28 Sodium Potassium Chloride Carbon Dioxide BUN Creatinine Estimated GFR BUN/Creatinine Ratio Glucose Calcium Magnesium 2.0 Total Bilirubin AST ALT Alkaline Phosphatase Total Creatine Kinase CK-MB (CK-2) CK-MB (CK-2) Rel Index Troponin I Total Protein Albumin Globulin Albumin/Globulin Ratio TSH 1.81 02/16/23 02/16/23 10:37 10:37 WBC 9.2 RBC 3.80 L Hgb 11.6 L Hct 34.2 L MCV 90.0 MCH 30.6 MCHC 34.0 RDW 14.0 Plt Count 294 Neut % (Auto) 50.1 Lymph % (Auto) 43.2 H Griggs % (Auto) 6.4 Eos % (Auto) 0.3 L Baso % (Auto) 0.0 Neut # (Auto) 4600 Lymph # (Auto) 4000 Griggs # (Auto) 600 Eos # (Auto) 0 Baso # (Auto) 0 PT INR APTT Sodium 136 L Potassium 3.9 Chloride 105 Carbon Dioxide 21 L BUN 13 Creatinine 1.01 Estimated GFR 58 L BUN/Creatinine Ratio 12.9 Glucose 154 H Calcium 9.2 Magnesium Total Bilirubin 0.8 AST 34 ALT 47 H Alkaline Phosphatase 121 Total Creatine Kinase 38 CK-MB (CK-2) TNP CK-MB (CK-2) Rel Index TNP Troponin I < 0.012 Total Protein 6.8 Albumin 4.1 Globulin 2.7 Albumin/Globulin Ratio 1.5 TSH Assessment & Plan Assessment & Plan narrative: 1. New diagnosis atrial fibrillation with RVR, probable acute heart failure - continue diltiazem infusion and wean as tolerated, consider alternative including digoxin or amiodarone if ineffective, consider cardiology consultation. Start oral metoprolol as well as blood pressure tolerates. - obtain TTE - start apixaban - given b/l effusions and congestive appearance, along with trace edema on exam, start furosemide for presumed acute heart failure or flash edema due to rapid afib. - troponin negative, EKG without ischemia, given symptoms have been going on for days further troponin will not be ordered. 2. Chronic back pain - continue gabapentin, will need to hold celebrex given initiation of AC for atrial fibrillation. Code: Full as discussed with the patient. surrogate is patient's I have utilized all available immediate resources to obtain, update, or review the patient's current medications. I have discussed plan of care with patient, spouse, and bedside staff. Additional history obtained via interview with spouse and ER provider. I have personally reviewed patient's imaging, EKG, and documentation. Dispo: Admit observation in ICU for diltiazem infusion, will likely go home once rate control is achieved.
[2023-02-16] MEDS: FUROSEMIDE 20 MG/2 ML VIAL IV (18:05)
--- NOTE | 2023-02-16 18:55 | PC.NURSE ---
Patient was brought up from ER to 229 at approximately 1610. Oriented to room and call light. Patient was in AFIB with RVR up to 170's. Diltiazem gtt resumed upon arrival to 229 per transfer orders. Denies chest pain or palpitations. Dr. Collins to patient's bedside. Patient has no further questions at this time. Continue with plan of care.
[2023-02-16 19:00] LABS: MRSA (Nasal) PCR Not Detected (Not Detect)
[2023-02-16] MEDS: ONDANSETRON 4 MG/2 ML INJ IV (20:11)
[2023-02-16] MEDS: GABAPENTIN 300 MG CAPSULE PO (20:12)
[2023-02-16] MEDS: DILTIAZEM 125 MG/125 ML PIGGYBACK 15 MG IV (22:12)
[2023-02-17] VITALS (61 sets, daily range): BP systolic 91–183; BP diastolic 53–87; PULSE 75–172; RESP 16–44; TEMP 36.5–36.8; O2SAT 86–98
[2023-02-17] MEDS: DILTIAZEM 125 MG/125 ML PIGGYBACK 15 MG IV (03:36)
[2023-02-17] MEDS: ACETAMINOPHEN 325 MG TABLET 650 MG PO (08:08)
[2023-02-17] MEDS: METOPROLOL IR 25 MG TABLET 50 MG PO ×3 (08:08→21:05)
[2023-02-17] MEDS: GABAPENTIN 300 MG CAPSULE PO ×2 (08:08→21:05)
[2023-02-17] MEDS: APIXABAN 5 MG TABLET PO ×2 (08:08→21:05)
[2023-02-17] MEDS: DILTIAZEM 125 MG/125 ML PIGGYBACK 10 MG IV ×2 (11:44→23:20)
--- NOTE | 2023-02-17 13:14 | P.PN_ITS ---
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 Mild improvement in rate with increase in beta ketty today, will worse to start shefali/arb if rate controlled and BP allows. Remains on diltiazem infusion, but beginnging to wean down today. Exam Vital Signs (past 8 hours): - 02/17/23 05:30 02/17/23 05:31 02/17/23 05:31 Temperature Pulse Rate 148 H 152 H Respiratory Rate 20 23 Blood Pressure 118/58 L Pulse Oximetry 91 91 Oxygen Delivery Method Oxygen Flow Rate 02/17/23 06:00 02/17/23 06:00 02/17/23 06:30 Temperature Pulse Rate 143 H Respiratory Rate 29 H Blood Pressure 113/62 118/61 Pulse Oximetry 90 L Oxygen Delivery Method Oxygen Flow Rate 0 02/17/23 06:30 02/17/23 07:00 02/17/23 07:00 Temperature Pulse Rate 157 H 135 H Respiratory Rate 28 H 32 H Blood Pressure 110/60 Pulse Oximetry 86 L 88 L Oxygen Delivery Method Oxygen Flow Rate 02/17/23 07:30 02/17/23 07:31 02/17/23 07:31 Temperature Pulse Rate 167 H 172 H Respiratory Rate 38 H 44 H Blood Pressure 183/82 H Pulse Oximetry Oxygen Delivery Method Oxygen Flow Rate 02/17/23 07:34 02/17/23 07:34 02/17/23 09:24 Temperature Pulse Rate 162 H Respiratory Rate 20 Blood Pressure 123/62 Pulse Oximetry 96 Oxygen Delivery Method Room Air Oxygen Flow Rate 0 02/17/23 09:29 02/17/23 08:00 02/17/23 08:00 Temperature Pulse Rate 145 H Respiratory Rate 20 Blood Pressure 125/65 Pulse Oximetry Oxygen Delivery Method Room Air Oxygen Flow Rate 02/17/23 08:30 02/17/23 09:57 02/17/23 08:31 Temperature 98.0 F Pulse Rate 146 H Respiratory Rate 24 Blood Pressure 102/56 L Pulse Oximetry Oxygen Delivery Method Oxygen Flow Rate 02/17/23 08:31 02/17/23 09:00 02/17/23 09:00 Temperature Pulse Rate 158 H 97 H Respiratory Rate 27 H 17 Blood Pressure 101/62 Pulse Oximetry Oxygen Delivery Method Oxygen Flow Rate 02/17/23 09:30 02/17/23 09:31 02/17/23 09:31 Temperature Pulse Rate 91 H 80 Respiratory Rate 31 H 35 H Blood Pressure 105/62 Pulse Oximetry Oxygen Delivery Method Oxygen Flow Rate 02/17/23 10:00 02/17/23 10:00 02/17/23 10:30 Temperature Pulse Rate 75 Respiratory Rate 23 Blood Pressure 106/57 L 106/53 L Pulse Oximetry Oxygen Delivery Method Oxygen Flow Rate 02/17/23 10:30 02/17/23 11:00 02/17/23 11:00 Temperature Pulse Rate 78 90 Respiratory Rate 22 32 H Blood Pressure 107/58 L Pulse Oximetry Oxygen Delivery Method Oxygen Flow Rate 02/17/23 11:30 02/17/23 11:31 02/17/23 11:31 Temperature Pulse Rate 94 H 91 H Respiratory Rate 28 H 23 Blood Pressure 107/61 Pulse Oximetry Oxygen Delivery Method Oxygen Flow Rate 02/17/23 12:00 02/17/23 12:01 02/17/23 12:01 Temperature Pulse Rate 100 H 93 H Respiratory Rate 28 H 28 H Blood Pressure 107/69 Pulse Oximetry Oxygen Delivery Method Oxygen Flow Rate 02/17/23 12:30 02/17/23 12:30 02/17/23 13:00 Temperature 97.9 F Pulse Rate 90 Respiratory Rate 17 Blood Pressure 118/65 117/63 Pulse Oximetry Oxygen Delivery Method Oxygen Flow Rate 02/17/23 13:00 Temperature Pulse Rate 93 H Respiratory Rate 27 H Blood Pressure Pulse Oximetry Oxygen Delivery Method Oxygen Flow Rate Oxygen Delivery Method Room Air Oxygen Flow Rate 0 Narrative Exam Narrative: General:? Patient is well developed and well nourished, in no distress at this time. HEENT:? Normocephalic, atraumatic, extraocular muscles intact, oral pharynx is clear and mucous membranes are moist. Neck: supple and symmetric, trachea is midline, no cervical adenopathy. Negative for JVD Chest:? Normal AP diameter and contour without kyphoscoliosis, no tachypnea, equal chest rise bilaterally. Lungs:? CTA b/l no wheezing rhonchi or rales. Cardio:? Tachycardic, irregularly irregular with no murmurs, rubs, or gallops Abdomen: S NT ND. No CVA tenderness. Musculoskeletal:? Muscle strength and tone are equal within normal limits, no deformity. Extremities: trace bilateral non-pitting edema, joint effusions. No cyanosis or clubbing. Skin:? Pale,? Warm to touch,dry and intact without rashes, ulcerations or petec hiae.? Neuro:? Alert and orientated x3,? sensation to touch intact in all extremities, no gross deficits noted of cranial nerves. Psych:? Patient has a well-kept appearance, appropriate affect, mental status attitude thought context and judgment are appropriate for age. Objective Labs 02/16/23 10:37 02/16/23 10:37 Labs: Laboratory Results - last 24 hr 02/16/23 16:30 Nasal Screen MRSA (PCR) Not detected PFSH Medical History Anal cancer Arthritis Facet arthropathy, lumbar Foraminal stenosis of lumbosacral region GERD (gastroesophageal reflux disease) Hyperlipidemia Lumbosacral spondylosis with radiculopathy Pollen allergies Ulcer Vertigo Surgical History No pertinent past surgical history Family History Mother Diabetes mellitus Sister Diabetes mellitus Social History household members: spouse Smoking Status: Never smoker alcohol intake: current Assessment & Plan Assessment & Plan narrative: 1. New diagnosis atrial fibrillation with RVR, and acute systolic heart failure - continue diltiazem infusion and wean as tolerated, have started and increased metoprolol to 50 mg TID today with some improvement. If unable to wean from dilt today can start digoxin with her EF of 30%. 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 - started apixaban 5 mg BID - diurese prn, given 20 mg IV yesterday, will repeat again today. Measure daily weights and intake and output. - troponin negative, EKG without ischemia, given symptoms have been going on for days further troponin will not be ordered. 2. Chronic back pain - continue gabapentin, will need to hold celebrex given initiation of AC for atrial fibrillation. Code: Full as discussed with the patient. surrogate is patient's I have utilized all available immediate resources to obtain, update, or review the patient's current medications. I have discussed plan of care with patient, spouse, and bedside staff. Additional history obtained via interview with spouse and ER provider. I have personally reviewed patient's imaging, EKG, and documentation. Dispo: ICU on diltiazem infusion I spent 35 minutes providing critical care management this patient. This excludes time spent in performing separately billed procedures.
[2023-02-17] MEDS: FUROSEMIDE 20 MG/2 ML VIAL IV (13:41)
--- NOTE | 2023-02-17 14:03 | CM.DANOTE ---
DCP: Patient is a 72yo F here under inpatient status for afib. PCP: Dr. Raúl Britton Payer: Medicare and [employer] From the nurse- patient has been moving around just fine and is eager to d/c. SPA DIRECTOR/FINANCE entered room and introduced self and role. Patient was siting in the chair and appeared A/Ox4. Patient was accompanied by spouse, Angel Chi ([phone]). Patient lives at home in [place] with spouse. Patient reports being excited and eager to d/c. Patient reports being independent at baseline with ADLs, drives independently, and does not utilize DME. Patient says there are no steps to get into her house and there are approximately 15 steps inside her house. Patient reports her can help with care giving needs upon d/c. Spouse will provide transport home. When asked, patient reports being open to HH if deemed medically necessary and has no preference on agency. Patient asked this author to use her influence to get the doctor to come talk to her about her echo results. SPA DIRECTOR/FINANCE informed patient and spouse that nursing staff was inquiring into locating provider to communicate tests results. Plan: Home with spouse when medically stable in POV. CM team to continue to follow with needs. CAM Bello Discharge Planning/Care Management CM Discharge Assessment Start: 02/17/23 13:59 Freq: Status: Active Protocol: Document 02/17/23 13:59 (Rec: 02/17/23 14:02 [id number]) Discharge Planning Assessment Assigned Systems Design Engineer CAM Bello DPOA/Assigned Designee Name Angel Chi (spouse) Contact Information ([phone]) Advance Directives? No Advance Directives on File No History Provided By Patient,Family Member,Medical Record Prior Living Arrangements House Household Members spouse Type of transporation used prior to Drives own vehicle admit Independent with ADL's Yes Is patient alert and oriented? Yes Caregiver for Another No Barriers to Discharge No Discharge Plan Home Transportation Arrangement spouse will drive home in POV Whiteboard Updated in Patient Room with Yes name and ext. # of Systems Design Engineer Review Status In Process Next Review Type Continued Stay Review
[2023-02-17] MEDS: DIGOXIN 500 MCG/2 ML AMPUL 250 MCG IV ×2 (14:43→20:16)
--- NOTE | 2023-02-17 17:59 | PC.NURSE ---
Day Shift Note Pt alert and oriented x3, independent in room going back and forth from BS. Afib CVR/RVR in the 140-150s this AM while on diltiazem gtt 15 mg/hr, initially improved to the 80s after metoprolol PO administered before climbing back to the 130s-140s. Administered digoxin and lasix per MD order and attempted to wean off diltiazem with HR in the 90-110s. However, HR increased back up to the 150s-160s consistently. Updated MD and placed back on diltiazem gtt per MD. Pt remains asymptomatic at this time, denies pain, denies shortness of breath. Call light within reach, using appropriately to make needs known.
[2023-02-18] VITALS (56 sets, daily range): BP systolic 89–136; BP diastolic 55–92; PULSE 82–150; RESP 17–40; TEMP 36.2–36.6; O2SAT 95–100
[2023-02-18] MEDS: DIGOXIN 500 MCG/2 ML AMPUL 250 MCG IV ×2 (02:37→08:38)
[2023-02-18] MEDS: DILTIAZEM 125 MG/125 ML PIGGYBACK 10 MG IV (08:35)
[2023-02-18] MEDS: GABAPENTIN 300 MG CAPSULE PO ×2 (08:38→20:26)
[2023-02-18] MEDS: METOPROLOL IR 25 MG TABLET 50 MG PO ×3 (08:38→20:27)
[2023-02-18] MEDS: APIXABAN 5 MG TABLET PO ×2 (08:38→20:26)
[2023-02-18] MEDS: AMIODARONE 360 MG/200 ML PIGGYBACK 33.33 MG IV (09:39)
--- NOTE | 2023-02-18 10:38 | CM.DPC ---
DCP Cont: Per MD, pt now with Cardiology needs due to decreased EF% and may need COLEMAN and recommendation is hospital transfer for higher level of care needs for [employer]. nicker working on finding an accepting facility with beds. Plan: SW to follow closely for attempts at hospital transfer for higher level of care needs before safe return home with family. CAM Beck
--- NOTE | 2023-02-18 15:19 | PM.DS.1 ---
History of Present Illness History of Present Illness Date Patient Seen: 02/18/23 Time Patient Seen: 15:20 Chief complaint: sent by [facility]/ heart issues Narrative: 72 F with PMH of anal cancer in remission, chronic back pain presenting with dyspnea for the past three days. Patient states she has intermittent shortness of breath, not related to exertion or positional changes since Wednesday. She did not feel fever, chills, chest pain, palpitations, abdominal pain, dysuria, urinary frequency, nausea, vomiting, orthopnea, or lower extremity edema. She initially presented to urgent care, was found to be in rapid afib and sent to the emergency room. Her HR was as fast as the 180s, she had minimal improvement with initial diltiazem infusion, but also no response to IV labetalol. She was admitted for further management of afib with RVR on a diltiazem infusion. EKG confirmed afib with RVR (rate 180) without obvious acute ischemia but non-specific ST and T wave changes (TWI in V5, borderline ST depressions likely due to baseline wander). CXR showed trace bilateral pleural effusion with vascular congestion. Discharge Providers Provider Date of admission: 02/17/23 13:14 Discharge Date: 02/18/23 Primary care physician: Raúl Britton MD Discharge provider: Octavio Collins DO Summary Hospital Course Discharge Diagnosis: Please see hospital course by problem list noted below. Hospital Course: 1. New diagnosis atrial fibrillation with RVR, and acute systolic heart failure - initially patient brought presented with rates as high as 180. She was started on diltiazem infusion, oral metoprolol. Metoprolol increased to tartrate 50 mg TID since admission, along with dilt infusion this was ineffective for rate contol. When EF returned at 30%, started digoxin 250 mg IV q6 hr. She completed 4 doses of digoxin, also with little effectiveness. Rediscussed with cardiology (Dr. Delgado), recommended IV infusion of amiodarone, which was initiated on 02/18. She completed the 6 hour infusion. She is on the 18 hour infusion currently. 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 She is being transferred with accepting hospitalist at [facility]. Discussed with Dr. Connors, currently salesperson meats at [facility], whom agreed with recommendation for COLEMAN / cardioversion. 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 ?- started apixaban 5 mg BID on admission. ?- diuresed prn, given 20 mg IV on admit, and on HD#1, none given today given low-normal BP. Measure daily weights and intake and output. ?- troponin negative, EKG without evidence of acute ischemia, given symptoms have been going on for days further troponin will not be ordered. - at the time of transfer, patient is currently on 50 mg TID metoprolol, amiodarone infusion (currently on 18 hour infusion, completed 6 hour infusion), and diltiazem infusion. - K 3.9 and Mg 2.0, not repleted. TSH 1.81. - respiratory panel negative on 02/18/23. 2. Chronic back pain ?- continues on gabapentin, will need to hold celebrex given initiation of AC for atrial fibrillation. Code: Full, surrogate is patient's spouse DVT: on AC Time Spent with Patient Time spent: Greater than 30 minutes Exam Vital Signs (past 8 hours): - 02/18/23 07:30 02/18/23 08:00 02/18/23 08:11 Pulse Rate 95 H 101 H Respiratory Rate 20 19 Blood Pressure 117/65 Pulse Oximetry Oxygen Delivery Method Oxygen Flow Rate 02/18/23 08:11 02/18/23 08:38 02/18/23 08:30 Pulse Rate 118 H 150 H 124 H Respiratory Rate 25 H 21 Blood Pressure 117/65 Pulse Oximetry Oxygen Delivery Method Oxygen Flow Rate 02/18/23 09:00 02/18/23 09:00 02/18/23 09:00 Pulse Rate 113 H Respiratory Rate 22 Blood Pressure 128/65 Pulse Oximetry 96 Oxygen Delivery Method Room Air Oxygen Flow Rate 0 02/18/23 09:30 02/18/23 10:00 02/18/23 10:01 Pulse Rate 95 H 88 Respiratory Rate 21 34 H Blood Pressure 100/68 Pulse Oximetry Oxygen Delivery Method Oxygen Flow Rate 02/18/23 10:01 02/18/23 10:30 02/18/23 11:00 Pulse Rate 86 94 H Respiratory Rate 31 H 28 H Blood Pressure 112/62 Pulse Oximetry Oxygen Delivery Method Oxygen Flow Rate 02/18/23 11:00 02/18/23 11:30 02/18/23 12:00 Pulse Rate 82 89 Respiratory Rate 20 26 H Blood Pressure 109/59 L Pulse Oximetry Oxygen Delivery Method Oxygen Flow Rate 02/18/23 12:00 02/18/23 12:30 02/18/23 13:00 Pulse Rate 87 121 H 103 H Respiratory Rate 25 H 40 H 23 Blood Pressure Pulse Oximetry Oxygen Delivery Method Oxygen Flow Rate 02/18/23 13:01 02/18/23 13:01 02/18/23 13:30 Pulse Rate 116 H 97 H Respiratory Rate 24 27 H Blood Pressure 111/59 L Pulse Oximetry Oxygen Delivery Method Oxygen Flow Rate 02/18/23 14:11 Pulse Rate Respiratory Rate Blood Pressure Pulse Oximetry 96 Oxygen Delivery Method Room Air Oxygen Flow Rate 0 Oxygen Delivery Method Room Air Oxygen Flow Rate 0 Narrative Exam Narrative: General:? Patient is well developed and well nourished, in no distress at this time. HEENT:? Normocephalic, atraumatic, extraocular muscles intact, oral pharynx is clear and mucous membranes are moist. Neck: supple and symmetric, trachea is midline, no cervical adenopathy. Negative for JVD Chest:? Normal AP diameter and contour without kyphoscoliosis, no tachypnea, equal chest rise bilaterally. Lungs:? CTA b/l no wheezing rhonchi or rales. Cardio:? Tachycardic, irregularly irregular with no murmurs, rubs, or gallops Abdomen: S NT ND. No CVA tenderness. Musculoskeletal:? Muscle strength and tone are equal within normal limits, no deformity. Extremities: trace bilateral non-pitting edema, joint effusions. No cyanosis or clubbing. Skin:? Pale,? Warm to touch,dry and intact without rashes, ulcerations or petechiae.? Neuro:? Alert and orientated x3,? sensation to touch intact in all extremities, no gross deficits noted of cranial nerves. Psych:? Patient has a well-kept appearance, appropriate affect, mental status attitude thought context and judgment are appropriate for age. Objective Labs 02/16/23 10:37 02/16/23 10:37 [facility] Medical History Anal cancer Arthritis Facet arthropathy, lumbar Foraminal stenosis of lumbosacral region GERD (gastroesophageal reflux disease) Hyperlipidemia Lumbosacral spondylosis with radiculopathy Pollen allergies Ulcer Vertigo Surgical History No pertinent past surgical history Family History Mother Diabetes mellitus Sister Diabetes mellitus Social History household members: spouse Smoking Status: Never smoker alcohol intake: current Discharge Plan Discharge Plan Patient Disposition: [facility] Provider Discharge Comment: Please see discharge summary Discharge Health Status Precautions: [place] Diet/Activity/Treatments Diet: Diet as Tolerated Liquid consistency: Normal/Thin Food texture: Regular Activity: As tolerated Discharge Data Primary Care Provider: Raúl Britton
[2023-02-18] MEDS: AMIODARONE 360 MG/200 ML PIGGYBACK 16.7 MG IV (15:28)
[2023-02-18 17:00] LABS: Adenovirus Not Detected (Not Detect); B. parapertussis Not Detected (Not Detecte); Bordetella pertussis Not Detected (Not Detecte); Chlamydophila pneumoniae Not Detected (Not Detect); Coronavirus 229E Not Detected (Not Detect); Coronavirus HKU1 Not Detected (Not Detect); Coronavirus NL 63 Not Detected (Not Detect); Coronavirus OC43 Not Detected (Not Detect); Human Metapneumovirus Not Detected (Not Detect); Human Rhinovirus/Enterovirus Not Detected (Not Detect); Influenza A Not Detected (Not Detect); Influenza B Not Detected (Not Detect); Mycoplasma pneumoniae Not Detected (Not Detect); Parainfluenza Virus 1 Not Detected (Not Detect); Parainfluenza Virus 2 Not Detected (Not Detect); Parainfluenza Virus 3 Not Detected (Not Detect); Parainfluenza Virus 4 Not Detected (Not Detect); Respiratory Syncytial Virus Not Detected (Not Detect); SARS- CoV-2 Not Detected (Not Detecte)
--- NOTE | 2023-02-18 17:27 | PC.NURSE ---
Day shift: Pt A&Ox4. No complaints of SOB or dizziness. HR 80's to 130's. See MAR for titration of rate control medication. Blood pressure stable. Pt able to make needs known and met. Sitting in chair with spouse for meals. Pt and spouse updated on transfer to [facility] for cardiology. Transport to arrive at approximately 2100 per vice president of nursing; pt to go to room 2021 Progressive Care RN-RN report at [phone]. Care ongoing at this time.
--- NOTE | 2023-02-18 21:14 | PC.NURSE ---
2019- Report called to NAHED at [facility]. All questions answered and patient ready for transport at 2099. 2099- Ambulance here to transfer patient. Report given at bedside. Patient stable and alert at time of transfer. Transfer documents verified with transport staff.
== END 2023-02-18 21:00 | disposition short-term general hospital (02) | DRG 308 ==
LOC: ED 11:32 → AC 15:27 → ICU 15:42
PROVIDERS: Admitting Provider Internal Medicine; Emergency Provider Emergency Medicine; Family Provider Internal Medicine; PCP Internal Medicine; Referring Provider Emergency Medicine; Visit Provider Internal Medicine
DX: I48.91 Unspecified atrial fibrillation (principal); I50.21 Acute systolic (congestive) heart failure; J90 Pleural effusion, not elsewhere classified; G89.29 Other chronic pain; M54.9 Dorsalgia, unspecified; I42.8 Other cardiomyopathies; Z20.822 Contact with and (suspected) exposure to COVID-19
CPT/HCPCS: 71045; 80053; 82550; 83735; 84443; 84484; 85025; 85610; 85730; 87633; 87797; 93005; 93010; 93306; 96374; 96375; 99284; 99291; G0378; J0282; J1160; J1940; J2405

== ENCOUNTER → 2023-04-06 10:55 | Outpatient (CLI) | payer MEDICARE, BC, SELFPAY ==
[2023-02-16 16:28] VITALS: BMI 31.1
[2023-04-06 11:43] LABS: Influenza A - CEPHEID Flu A NEGATIVE (NEGATIVE); Influenza B - CEPHEID Flu B NEGATIVE (NEGATIVE); Respiratory Syncytial Virus Negative (Negative)
[2023-04-06 11:45] LABS: COVID-19 CEPHEID 4-PLEX PCR POSITIVE (Negative)
== END ==
PROVIDERS: Family Provider Internal Medicine; PCP Internal Medicine; Visit Provider Student in an Organized Health Care Education/Training Program
DX: R05.1 Acute cough (principal)
CPT/HCPCS: 0241U

== ENCOUNTER → 2023-06-07 10:21 | Outpatient (CLI) | payer MEDICARE, BC, SELFPAY ==
[2023-02-16 16:28] VITALS: BMI 31.1
--- NOTE | 2023-06-07 | DI.ECHO.S_ITS ---
[facility]---------+ [facility] +---------+ : : [address] [place] : : : : [id number] : : : : Phone: [phone]+ Echocardiogram Report + + :Name: LUIS EDUARDO MATHIS Study Date: 06/07/2023 Height: 65 in : :[facility] ReadingLocation: Weight: 169 lb : : Gender: Female BSA: 1.8 m2 : :: 1950 Age: 72 yrs BP: 149/71 mmHg: :Reason For Study: Chronic Systolic Heart Failure : :Ordering Physician: SAM, : :PRAKASH Performed By: Laura Powell : :Referring: PRAKASH DAIGLE : + + Interpretation Summary 1) Normal left ventricular thickness, size, wall motion, and systolic function (EF 60-65%). 2) Normal right ventricular size and function. 3) No significant valvular abnormalities. 4) Compared to the Echo done 02/17/2023, LVEF has improved from 30-35% to 60- 65% on this study. Procedure: A two-dimensional transthoracic echocardiogram with color flow and Doppler was performed. The study quality was technically adequate. Comparison is made with the echocardiogram of 02/17/2023. The patient was in normal sinus rhythm during the exam. The patient had occasional PVCs during the exam. Left Ventricle: The left ventricle is normal in size and wall thickness. The ejection fraction is estimated to be 60-65%. Left ventricular systolic function appears normal without focal wall motion abnormalities. Diastolic parameters suggest a relaxation abnormality of the left ventricle, consistent with probable normal filling pressures. Right Ventricle: The right ventricle is normal in size and function. Atria: The left atrium is mildly dilated. Right atrial size is normal. There is no Doppler evidence for an interatrial shunt. Mitral Valve: The mitral valve leaflets appear mildly thickened, but open well. There is no mitral valve stenosis. There is mild mitral regurgitation. Aortic Valve: The aortic valve is trileaflet. The aortic valve opens well. There is no hemodynamically significant valvular aortic stenosis. No aortic regurgitation is present. Tricuspid Valve: The tricuspid valve is normal. There is no tricuspid stenosis. There is mild tricuspid regurgitation. The right ventricular systolic pressure is estimated to be at least 32 mmHg based on an estimated right atrial pressure of 3 mm Hg. Pulmonic Valve: The pulmonic valve leaflets are thin and pliable; valve motion is normal. There is no pulmonic valvular stenosis. There is trace pulmonic regurgitation. Great Vessels: The aortic root is normal size. The ascending aorta is normal in size. The pulmonary artery is normal size. The IVC is of normal diameter and collapses greater than 50% with a sniff. This suggests a low right atrial pressure of 3 mm Hg. Pericardium/ Pleura There is no pericardial effusion. There is no pleural effusion. MMode/2D Measurements & Calculations LVIDd: 4.0 cm LVOT diam: 1.7 cm LVIDs: 1.8 cm Ao root diam: 2.8 cm FS: 55.0 % asc Aorta Diam: 2.9 cm IVSd: 0.70 cm LVPWd: 0.80 cm LV power. diameter/BSA (cm/m^2): 2.2 LV sys. diameter/BSA (cm/m^2): 0.98 LA A2 area: 18.4 cm2 RA long axis: 5.1 cm LA A4 area: 18.7 cm2 RA area: 14.0 cm2 LA length (vol): 5.4 cm RA vol: 32.4 ml LA vol: 54.1 ml RA : 17.6 ml/m2 LA vol index: 29.4 ml/m2 RVD1 (basal): 3.3 cm LVLs ap4: 5.2 cm LVLd ap2: 6.3 cm TAPSE_phl: 2.8 cm LVLs ap2: 5.4 cm Doppler Measurements & Calculations Ao V2 max: 140.5 cm/sec LVOT Max Luis Carlos: 100.3 cm/sec Ao V2 mean: 101.0 cm/sec LV V1 max P.0 mmHg Ao max P.0 mmHg LV V1 VTI: 23.6 cm Ao mean P.8 mmHg SHELLIE(I,D): 1.6 cm2 Ao V2 VTI: 33.1 cm SHELLIE(V,D): 1.6 cm2 sev ratio: 0.71 SHELLIE indexed to BSA (cm^2/m^2): 0.85 MV E max luis carlos: 109.0 cm/sec TR max luis carlos: 269.0 cm/sec MV A max luis carlos: 80.5 cm/sec TR max P.9 mmHg MV E/A: 1.4 PA V2 max: 89.0 cm/sec Med Peak E' Luis Carlos: 10.9 cm/sec PA V2 mean: 64.3 cm/sec E/E' med: 10.0 PA mean P.0 mmHg Lat Peak E' Luis Carlos: 12.4 cm/sec PA pr(Accel): -2.9 mmHg E/E' lat: 8.8 E/e' average: 9.4 MV dec time: 0.19 sec SV(LVOT): 52.2 ml AV VR_phl: 0.71 SHELLIE(VTI)/BSA_phl: 0.78 Reading Physician:12:21 PM
== END ==
PROVIDERS: Family Provider Internal Medicine; PCP Family Medicine; Referring Provider Internal Medicine Cardiovascular Disease; Visit Provider Internal Medicine Cardiovascular Disease
DX: I50.22 Chronic systolic (congestive) heart failure (principal); I08.1 Rheumatic disorders of both mitral and tricuspid valves
CPT/HCPCS: 93306

== ENCOUNTER → 2023-07-26 07:30 | Outpatient (CLI) | payer MEDICARE, BC, SELFPAY ==
[2023-02-16 16:28] VITALS: BMI 31.1
--- NOTE | 2023-07-26 07:32 | DI.RAD.S_ITS ---
PROCEDURE: XR LUMBAR SPINE MIN 4V INDICATIONS: BACK PAIN TECHNIQUE: 5 views of the lumbar spine were acquired, including bilateral oblique views. COMPARISON: [facility], CR, XR LUMBAR SPINE MIN 4V, 02/26/2021, 7:31. [facility], CR, XR LUMBAR SPINE MIN 4V, 05/29/2019, 10:26. FINDINGS: Bones: 5 nonrib-bearing vertebrae are present. There is normal bony alignment. No vertebral body compression fractures. No suspicious bony lesions. Multilevel disc space narrowing degenerative endplate changes are seen that are most prominent at the L4-5 level. There is moderate multilevel facet hypertrophy. Degenerative changes also seen at the sacroiliac joints bilaterally. Soft tissues: Overlying bowel gas pattern is normal. No suspicious soft tissue calcifications. Oblique images: No pars defects. IMPRESSION: Moderate multilevel spondylosis, similar when compared to the exam from 02/26/2021. No acute osseous abnormality. If the symptoms persist, consider cross sectional imaging such as MRI or CT for further assessment. Approved by: Chip Garcia M.D. on 07/26/2023 at 10:11
--- NOTE | 2023-07-26 09:28 | DI.RAD.S_ITS ---
PROCEDURE: XR SHOULDER LT MIN 2V INDICATIONS: left shoulder impingement TECHNIQUE: 3 views of the shoulder were acquired. COMPARISON: None. FINDINGS: Bones: No fractures or dislocations. No suspicious bony lesions. Visualized ribs appear intact. Periarticular osteophyte formation at the acromioclavicular and glenohumeral joints. Soft tissues: No suspicious soft tissue calcifications. IMPRESSION: Osteoarthritis. No acute fracture. No osseous lesion. If symptoms and/or clinical suspicion for pathology persist, further assessment with repeat, or advanced imaging (e.g., CT, MRI, or bone scan) may be helpful for further assessment. Dictated by: Flako Gibson M.D. on 07/26/2023 at 13:35 Approved by: Flako Gibson M.D. on 07/26/2023 at 13:39
== END ==
PROVIDERS: Family Provider Internal Medicine; PCP Family Medicine; Referring Provider Physical Medicine & Rehabilitation; Visit Provider Physical Medicine & Rehabilitation
DX: M47.27 Other spondylosis with radiculopathy, lumbosacral region (principal); M47.26 Other spondylosis with radiculopathy, lumbar region; M47.28 Other spondylosis with radiculopathy, sacral and sacrococcygeal region; M48.07 Spinal stenosis, lumbosacral region; M19.012 Primary osteoarthritis, left shoulder; M75.42 Impingement syndrome of left shoulder
CPT/HCPCS: 72110; 73030; 99214

== ENCOUNTER 2023-08-04 12:30 | Outpatient (RCR) | payer MEDICARE, BC, SELFPAY ==
[2023-02-16 16:28] VITALS: BMI 31.1
== END 2023-08-04 13:30 ==
LOC: CAR 12:30
PROVIDERS: Family Provider Internal Medicine; PCP Internal Medicine; Referring Provider Internal Medicine Cardiovascular Disease; Visit Provider Internal Medicine Cardiovascular Disease
DX: I50.22 Chronic systolic (congestive) heart failure (principal)
CPT/HCPCS: 93798

== ENCOUNTER 2023-08-31 10:11 | Outpatient (CLI) | payer MEDICARE, BC, SELFPAY ==
[2023-02-16 16:28] VITALS: BMI 31.1
--- OUTSIDE RECORDS SUMMARY | 2023-08-20 15:06 | XMS_ITS | Referral Summary ---
Author Name Unknown Organization [facility] Address [address] [place] [address] Care Team Providers Care Produce Wrapper Name Role Phone Raúl Britton Primary Care Provider [phone] Reason for Referral * Diagnostic Imaging (Urgent) - Pending Review Specialty Diagnoses / Procedures Referred By Contac t Referred To Contact Radiology Diagnoses Chronic systolic heart failure ([facility]) Procedures ECHOCARDIOGRAM COMPLETE Mile Daigle MD [address] [place] [address] [address] [place] [address] Referral ID Status Reason Start Date Expiration Date Visits Requested Visits Authorized [id number] Pending Review Specialty Services Required 03/04/2023 02/27/2024 1 1 * - Authorized Specialty Diagnoses / Procedures Referred By Contac t Referred To Contact Cardiac Rehabilitation Diagnoses Cardiomyopathy, unspecified type ([facility]-HCC) Chronic systolic heart failure ([facility]-H[facility]) Mile Daigle MD [facility] [address] [place] [address] [address] [place] [address] [id number] Referral ID Status Reason Start Date Expiration Date V isits Requested Visits Authorized [id number] Authorized 03/04/2023 02/27/2024 1 1 Reason for Visit * Reason Comments Cardiomyopathy Encounter Details Date Type Department Care Team Description 03/04/2023 Office Visit [facility] Cardiology [place] [address], [address] [place] [address] Mile Daigle MD [address] [address] [place] [address] Cardiomyopathy, unspecified type (CMS-HCC) (Primary Dx); Persistent atrial fibrillation (CMS-HCC); History of anal cancer; Chronic systolic heart failure (CMS-HCC); Preventative health care Allergies Active Allergy Reactions Severity Noted Date Comments No Known Allergies 08/27/2016 documented as of this encounter (statuses as of 03/04/2023) Medications Medication Sig Dispensed Refills Start Date End Date Status gabapentin (NEURONTIN) 300 mg capsule Take 1 capsule (300 mg total) by mouth 2 (two) times a day 0 Active famotidine (PEPCID) 20 mg tablet Take 1 tablet (20 mg total) by mouth every 12 (twelve) hours as needed 0 Active Lactobacillus acidophilus 10 billion cell capsule Take 1 tablet by mouth daily. 0 Active ascorbic acid, vitamin C, (VITAMIN C) 500 mg capsule, extended release CR capsule Take 1 capsule (500 mg total) by mouth daily 0 Active ergocalciferol (VITAMIN D) 50,000 unit capsule Take 1 capsule (50,000 Units total) by mouth daily 0 Active acetaminophen (TYLENOL) 500 mg tablet Take 2 tablets (1,000 mg total) by mouth every 12 (twelve) hours as needed for mild pain 0 Active multivit-min/iron /folic acid/K (ADULTS MULTIVITAMIN ORAL) Take by mouth daily 0 Active green tea leaf extract 250 mg capsule Take 1 capsule by mouth 2 (two) times a day 0 02/16/2023 Active amiodarone (PACERONE) 100 mg tablet Take 1 tablet (100 mg total) by mouth daily 90 tablet 3 03/04/2023 4 Active furosemide (LASIX) 20 mg tablet Take 1 tablet (20 mg total) by mouth daily 90 tablet 3 03/04/2023 4 Active losartan (COZAAR) 25 mg tablet Take 0.5 tablets (12.5 mg total) by mouth daily 45 tablet 3 03/04/2023 4 Active metoprolol tartrate (LOPRESSOR) 25 mg tablet Take 1 tablet (25 mg total) by mouth 2 (two) times a day 180 tablet 3 03/04/2023 4 Active spironolactone (ALDACTONE) 25 mg tablet Take 1 tablet (25 mg total) by mouth daily 90 tablet 3 03/04/2023 4 Active apixaban (ELIQUIS) 5 mg tablet Take 1 tablet (5 mg total) by mouth 2 (two) times a day 180 tablet 3 03/04/2023 4 Active vitamin E 100 unit capsule Take 1 capsule (100 Units total) by mouth daily 0 3 Discontinued spironolactone (ALDACTONE) 25 mg tablet Take 1 tablet (25 mg total) by mouth daily 30 tablet 0 02/20/2023 3 Discontinued(Reo rder) metoprolol tartrate (LOPRESSOR) 25 mg tablet Take 1 tablet (25 mg total) by mouth 2 (two) times a day 60 tablet 0 02/20/2023 3 Discontinued(Reo rder) losartan (COZAAR) 25 mg tablet Take 0.5 tablets (12.5 mg total) by mouth daily 15 tablet 0 02/20/2023 3 Discontinued(Reo rder) furosemide (LASIX) 20 mg tablet Take 1 tablet (20 mg total) by mouth daily 30 tablet 0 02/20/2023 3 Discontinued(Reo rder) amiodarone (PACERONE) 100 mg tablet Take 1 tablet (100 mg total) by mouth daily 30 tablet 0 02/20/2023 3 Discontinued(Reo rder) apixaban (ELIQUIS) 5 mg tablet Take 1 tablet (5 mg total) by mouth 2 (two) times a day 60 tablet 0 02/20/2023 3 Discontinued(Reo rder) apixaban (ELIQUIS) 5 mg tablet Take 1 tablet (5 mg total) by mouth 2 (two) times a day 180 tablet 3 03/04/2023 3 Discontinued(Reo rder) documented as of this encounter (statuses as of 03/04/2023) Active Problems No known active problems documented as of this encounter (statuses as of 03/04/2023) Resolved Problems Problem Noted Date Resolved Date Atrial fibrillation with RVR 02/20/202311/2022 Anus cancer 07/30/2017 02/20/2023 documented as of this encounter (statuses as of 03/04/2023) Immunizations Name Administration Dates Next Due Influenza, Unspecified 07/01/2016 documented as of this encounter Social History Tobacco Use Types Packs/Day Years Used Date Smoking Tobacco: Former Cigarettes 0.3 4 Q uit: 1973 Smokeless Tobacco: Never Tobacco Cessation:Counseling Given: Not Answered Alcohol Use Standard Drinks/Week Comments Yes 3 (1 standard drink = 0.6 oz pur e alcohol) Sex Assigned at Date Recorded Female 02/18/2023 9:57 PM P DT Job Start Date Occupation Industry Not on file Not on file Not on file COVID-19 Exposure Response Date Recorded In the last 10 days, have yo u been in contact with someone who was confirmed or suspected to have Coronavirus/COVID-19? No / Unsure 02/18/2023 9:58 PM PDT documented as of this encounter Last Filed Vital Signs Vital Sign Reading Time Taken Comments Blood Pressure 120/60 03/04/2023 11:52 AM PDT Pulse 63 03/04/2023 11:52 AM PDT Temperature - - Respiratory Rate - - Oxygen Saturation - - Inhaled Oxygen Concentration - - Weight 79.5 kg (175 lb 3.2 oz) 03/04/2023 11:52 AM PDT Height 165.1 cm (5' 5) 03/04/2023 11:52 AM PDT Body Mass Index 29.15 03/04/2023 11:52 AM PDT documented in this encounter Progress Notes * Mile Daigle MD - 03/04/2023 12:00 PM PDT Heart healthy diet is using extra virgin olive oil; eating unsalted nuts such as almonds, cashews, and walnuts/pecans; and eating legumes, lentils, avacados, quinoa, vegetables, and fruits. Avoid redmeat and avoid coconut oil. Minimize simple sugars, such as potatoes or potatoes based snacks, white rice, and regular pasta made from refined flour. Consider reading the following books to get good recipes. Free recipes: https://Codasip/ Book: The Vegan Instant Pot Cookbook: Wholesome, Indulgent Plant-Based Recipes The Oh She Glows Cookbook: Over 100 Vegan Recipes to Glow from the Inside Out Decolonize Your Diet: Plant-Based [place]-Citizen Of [place] Recipes for Health and Healing Plant You: 140+ Ridiculously Easy, Amazingly Delicios Plant-Based Oil-Free Recipes by Tara Mario The Plant-Based Diet for Beginners by Dustin Cobian Over Knives--The Cookbook by Mitch Clemens Meal Prep & Meatless Power Cookbook for Vegan Athletes by Jose Eduardo Bender [employer] Phone number: Fax number: [employer] Phone number: Fax number: [employer] Phone number: Fax number: [email or web address] Mile Daigle MD - 03/04/2023 12:00 PM PDT Subjective Patient ID: Alexandra Chi is a 72 y.o. female that presents today for had concerns including Cardiomyopathy. HPI: 72 yo W h/o AF and HF here for F/U on her heart issues. Patient is here by herself. Since her discharge from [facility], she has done well. Denies chest pain, dyspnea, heart racing sensations, lightheadedness, or syncope. She is walking more now and can do a flight of stairs without any issues. PROBLEM LIST: # AF s/p COLEMAN guided DCCV 02/19/2023 # HFrEF: diagnosed with EF 30-35% on Echo 02/16/2023 in the setting of AF with RVR # Anal cancer s/p chemo radiation in 2014 Past Medical History: Diagnosis Date Anal cancer (CMS-HCC) History reviewed. No pertinent surgical history. History reviewed. No pertinent family history. Social History Socioeconomic History Marital status: Tobacco Use Smoking status: Former Packs/day: 0.25 Years: 4.00 Pack years: 1.00 Types: Cigarettes Quit date: 1972 Years since quittin.4 Smokeless tobacco: Never Vaping Use Vaping Use: Never used Substance and Sexual Activity Alcohol use: Yes Alcohol/week: 3.0 standard drinks Types: 3 Glasses of wine per week Drug use: Never Allergies Allergen Reactions No Known Allergies Current Medication List Sig acetaminophen (TYLENOL) 500 mg tablet Take 2 tablets (1,000 mg total) by mouth every 12 (twelve) hours as needed for mild pain ascorbic acid, vitamin C, (VITAMIN C) 500 mg capsule, extended release CR capsule Take 1 capsule (500 mg total) by mouth daily ergocalciferol (VITAMIN D) 50,000 unit capsule Take 1 capsule (50,000 Units total) by mouth daily famotidine (PEPCID) 20 mg tablet Take 1 tablet (20 mg total) by mouth every 12 (twelve) hours as needed gabapentin (NEURONTIN) 300 mg capsule Take 1 capsule (300 mg total) by mouth 2 (two) times a day green tea leaf extract 250 mg capsule Take 1 capsule by mouth 2 (two) times a day Lactobacillus acidophilus 10 billion cell capsule Take 1 tablet by mouth daily. multivit-min/iron/folic acid/K (ADULTS MULTIVITAMIN ORAL) Take by mouth daily amiodarone (PACERONE) 100 mg tablet (Discontinued) Take 1 tablet (100 mg total) by mouth daily apixaban (ELIQUIS) 5 mg tablet (Discontinued) Take 1 tablet (5 mg total) by mouth 2 (two) times a day furosemide (LASIX) 20 mg tablet (Discontinued) Take 1 tablet (20 mg total) by mouth daily losartan (COZAAR) 25 mg tablet (Discontinued) Take 0.5 tablets (12.5 mg total) by mouth daily metoprolol tartrate (LOPRESSOR) 25 mg tablet (Discontinued) Take 1 tablet (25 mg total) by mouth 2 (two) times a day spironolactone (ALDACTONE) 25 mg tablet (Discontinued) Take 1 tablet (25 mg total) by mouth daily vitamin E 100 unit capsule (Discontinued) Take 1 capsule (100 Units total) by mouth daily amiodarone (PACERONE) 100 mg tablet Take 1 tablet (100 mg total) by mouth daily apixaban (ELIQUIS) 5 mg tablet Take 1 tablet (5 mg total) by mouth 2 (two) times a day furosemide (LASIX) 20 mg tablet Take 1 tablet (20 mg total) by mouth daily losartan (COZAAR) 25 mg tablet Take 0.5 tablets (12.5 mg total) by mouth daily metoprolol tartrate (LOPRESSOR) 25 mg tablet Take 1 tablet (25 mg total) by mouth 2 (two) times a day spironolactone (ALDACTONE) 25 mg tablet Take 1 tablet (25 mg total) by mouth daily apixaban (ELIQUIS) 5 mg tablet (Discontinued) Take 1 tablet (5 mg total) by mouth 2 (two) times a day Review of Systems Constitutional: Negative for fatigue and unexpected weight change. Eyes: Negative for visual disturbance. Respiratory: Negative for shortness of breath. Cardiovascular: Negative for chest pain, palpitations and leg swelling. Gastrointestinal: Negative for blood in stool. Endocrine: Negative for polydipsia. Genitourinary: Negative for hematuria. Skin: Negative for rash. Neurological: Negative for dizziness, weakness and light-headedness. Hematological: Does not bruise/bleed easily. Psychiatric/Behavioral: The patient is not nervous/anxious. Objective BP 120/60 (BP Location: Left arm, Patient Position: Sitting) Pulse 63 Ht 1.651 m Wt 79.5 kg BMI 29.15 kg/m?? Physical Exam: General appearance: No apparent distress, elderly, pleasant, cooperative HEET: Normocephalic atraumatic, no scleral icterus, tongue midline, mucous membranes moist Neck: supple Cardiovascular: RRR, normal S1 and normal S2, no murmurs/ rubs/gallops, PMI nondisplaced, no JVD, no peripheral edema Respiratory: Good aeration, CTAB Abdomen: Soft, nontender, nondistended, + bowel sounds Neuro: Alert, no facial droop, tongue midline, no gross motor deficits Psych: appropriate affect Skin: no rashes on face, neck, and lower extremities Echo 02/16/2023: LVEF 30-35%. No critical valvular disease. Dilated IVC Assessment/Plan Comments: 1. Cardiomyopathy, unspecified type (CMS-HCC) ECG 12 Lead (Clinic - Same Day), Ambulatory Referral to Cardiac Rehabilitation, Basic metabolic panel 2. Persistent atrial fibrillation (CMS-HCC) 3. History of anal cancer 4. Chronic systolic heart failure (CMS-HCC) Ambulatory Referral to Cardiac Rehabilitation, Basic metabolic panel, Complete blood count without diff, ECHOCARDIOGRAM COMPLETE 5. Preventative health care Lipid panel # AF s/p COLEMAN guided DCCV 02/19/2023. She has maintained sinus rhythm. CHADSVASC score is 3 (1 for age> 65, 1 for CM, 1 for woman), seeing continued benefit from therapeutic anticoagulation. Plan: - Continue metoprolol 25mg bid - Continue amiodarone 100mg daily short term - Continue eliquis 5mg bid - Discuss AF ablation at next visit # HF: diagnosed with EF 30-35% on Echo 02/16/2023. Etiology suspected to be tachycardia mediated. She is NYHA class III and euvolemic on exam. Plan: - Metoprolol as above - Continue losartan 12.5mg daily - Continue furosemide 20mg today - Continue spironolactone 25mg daily - Repeat Echo in 3 months - Ischemia evaluation in 3 months depending on echo results (stress test vs cath). # Anal cancer s/p chemo radiation in 2014 F/U in 3 months with labs and Echo. BMP today. Electronically signed by Mile Daigle MD 03/04/2023 12:25 PM documented in this encounter Plan of Treatment Scheduled Orders Name Type Priority Associated Diagnoses Orde r Schedule Basic metabolic panel Lab Routine Cardiomyopathy, unspecified type (CMS-HCC) Expected: 03/04/2023, Expires: 09/03/2024 Basic metabolic panel Lab Routine Chronic systolic heart failure (CMS-HCC) Expected: 06/04/2023, Expires: 09/03/2024 Complete blood count without diff Lab Routine Chronic systolic heart failure (CMS-HCC) Expected: 06/04/2023, Expires: 09/03/2024 Lipid panel Lab Routine Preventative health care Expected: 06/04/2023, Expires: 09/03/2024 ECHOCARDIOGRAM COMPLETE Imaging Urgent ( Imaging Only) Chronic systolic heart failure (CMS-HCC) Expected: 06/04/2023, Expires: 09/24/2026 Scheduled Referrals Name Type Priority Associated Diagnoses Order Schedule Ambulatory Referral to Cardiac Rehabilitation Outpatient Referral Routine Cardiomyopathy, unspecified type (CMS-HCC) Chronic systolic heart failure (CMS-HCC) Ordered: 03/04/2023 documented as of this encounter Procedures Procedure Name Priority Date/Time Associated Diagnosis Comments ECG 12-LEAD Routine 03/04/2023 11:59 AM PDT Cardiomyopathy, unspecified type (CMS-HCC) documented in this encounter Results * ECG 12 Lead (Clinic - Same Day) (03/04/2023 11:59 AM PDT) HR 63 bpm [facility] I[facility]G RR 952 ms [facility] IECG TN 134 ms [facility] IECG QRSD 77 ms [facility] IECG QT 404 ms [facility]ECG QTc 414 ms [facility] I[facility]G QRS 43 deg [facility] I[facility]G T 10 deg [facility]G Impression - BORDERLINE ECG - [facility] IECG Impression Sinus rhythm [facility] IECG Impression Probable left atrial enlargement [facility] IECG 03/04/2023 11:5 9 AM PDT Mile Daigle MD ECG ORDERABLES [facility] IECG documented in this encounter Visit Diagnoses Diagnosis Cardiomyopathy, unspecified type (CMS-HCC)- Primary Persistent atrial fibrillation (CMS-HCC) Atrial fibrillation History of anal cancer Chronic systolic heart failure (CMS-HCC) Chronic systolic heart failure Preventative health care Routine general medical examination at a health care facility documented in this encounter Advance Directives Latest Code Status on File Code Status Date Activated Date Inactivated Comments Full Code 02/18/2023 11:10 PM 02/20/2023 3:08 PM Care Teams Produce Wrapper Relationship Specialty Start Date End Date Raúl Britton [address] [place] [address] PCP - General Internal Medicine 07/30/17 documented as of this encounter
[2023-08-31] VITALS (9 sets, daily range): BP systolic 114–150; BP diastolic 55–70; PULSE 56–68; RESP 12–18; TEMP 36.6; O2SAT 96–100
--- NOTE | 2023-08-31 10:45 | DI.RAD.S_ITS ---
PROCEDURE: PAIN L/S FACET INJ/BLK 1ST ANGELITA INDICATIONS: SPONDYLOSIS COMPARISON: None. FINDINGS: Fluoroscopic spot filming was performed to verify placement of spinal needles at the L3, L4 and L5 level(s), as labeled on the films. Appropriate location(s) of the needle tip(s) was confirmed by injection of iodinated contrast. IMPRESSION: Fluoroscopy for pain management. Dictated by: Toni Ramirez M.D. on 08/31/2023 at 12:16 Approved by: Toni Ramirez M.D. on 08/31/2023 at 12:17
[2023-08-31] MEDS: MIDAZOLAM 2 MG/2 ML VIAL IV (11:22)
[2023-08-31] MEDS: LIDOCAINE 1% 20 ML 5 ML INJ (11:31)
[2023-08-31] MEDS: BUPIVACAINE 0.5% (PF) 10 ML VIAL 5 ML INJ (11:32)
[2023-08-31] MEDS: iopamidoL 15 ML VIAL 3 ML INJ (11:32)
--- NOTE | 2023-08-31 11:41 | P.PCN_ITS ---
Date/Time/Diagnoses Date of procedure: 08/31/23 Time of procedure: 11:41 Pre-procedure diagnosis: FACET ARTHROPATHY Post-procedure diagnosis: same Procedure Notes Procedure: 1. BILATERAL L3, L4 AND L5 DIAGNOSTIC MB BLOCKS Indications: Farida is referred by Dr. Woo for treatment of Bilateral Axial LBP. Physician: Michael Rivera Total Fluoroscopy time (seconds): 11 Total sedation minutes: 14 Complications: none Procedure in detail & Post-procedure care: DESCRIPTION OF PROCEDURE Fluoroscopically guided, contrast-controlled bilateral L3, L4 AND L5 medial branch blocks with 0.5cc of 0.5% Marcaine. Following review of allergy and review of potential side effects and complications, including, but not necessarily limited to, infection, allergic reaction, local tissue breakdown, nerve injury, paralysis, stroke and possible , the patient indicated that the patient understood and agreed to proceed. An informed consent document was signed by the patient, witnessed by a nurse, and placed in the patient's chart. After review of previous anaesthesic history and IV conscious sedation the patient was deemed safe to proceed with today's procedure with IV conscious sedation as ASA class II designation. Safety time-out was performed to confirm patient ID, procedure to be performed and site of procedure. IV sedation was accomplished with a combination of 2mg of Versed was administered by the RN after DO order, titrated to patient comfort during the course of the procedure while the patient remained responsive to all verbal commands In the prone position, following sterile prep and drape of the lumbar region, the right L3, L4 AND L5 anatomical location of the medial branch of the dorsal ramus was identified fluoroscopically. Subsequently an anesthetic skin wheal using 1% lidocaine solution was initiated at each of the anatomical spots. Subsequently then a 22-gauge 3.5-inch spinal needle was atraumatically introduced and advanced under fluoroscopic guidance at each of the corresponding sites at the right L3, L4 and L5 MB. After negative aspiration, 0.2cc of Isovue 200 was injected, confirming placement without vascular or intrathecal uptake. Subsequently then 0.5cc of 0.5% Marcaine solution was injected at each of the corresponding sites at the right L3, L4 and L5 medial branch locations. The identical procedure was replicated on the left. The patient tolerated the pr ocedure well without signs or symptoms of complications. The patient tolerated the procedure well without signs or symptoms of complications prior to transfer to the recovery area continued monitoring without incident. Post-procedure, the patient was monitored initiating provocative activities to measure the amount of relief from block of the facetogenic pain. The patient reported a VAS of 7 prior to the procedure and a post-procedure VAS of 1. It has been a pleasure to assist in the diagnostic and therapeutic care of your patient. POST OP INSTRUCTIONS The patient was provided with a Pain Log to complete over the next several hours and subsequent days prior to the patient's follow up with the ordering physician. If the patient has retarder operator relief to the solution applied, then they may be a candidate for medial branch rhizotomy. The patient is aware, was provided, once again, with a Pain Log and will follow up with the referring physician for review and clinical correlation
== END 2023-08-31 11:59 | disposition home or self-care (01) ==
PROVIDERS: Family Provider Internal Medicine; PCP Family Medicine; Referring Provider Physical Medicine & Rehabilitation; Visit Provider Physical Medicine & Rehabilitation
DX: M47.816 Spondylosis without myelopathy or radiculopathy, lumbar region (principal)
CPT/HCPCS: 64493; 64494; 99152; J2250

== ENCOUNTER → 2023-09-22 11:35 | Outpatient (CLI) | payer MEDICARE, BC, SELFPAY ==
[2023-02-16 16:28] VITALS: BMI 31.1
[2023-09-22 12:43] LABS: Cholesterol 210 mg/dL (140-199); HDL Cholesterol 47 mg/dL (40-60); LDL Cholesterol Calculated 129 mg/dL (<100); Triglycerides 171 mg/dL (35-150)
== END ==
PROVIDERS: Family Provider Internal Medicine; PCP Family Medicine; Referring Provider Family Medicine; Visit Provider Family Medicine
DX: Z00.00 Encounter for general adult medical examination without abnormal findings (principal); I48.91 Unspecified atrial fibrillation; D64.9 Anemia, unspecified
CPT/HCPCS: 36415; 80061

== ENCOUNTER 2023-10-12 14:27 | Outpatient (CLI) | payer MEDICARE, BC, SELFPAY ==
[2023-02-16 16:28] VITALS: BMI 31.1
[2023-10-12] VITALS (9 sets, daily range): BP systolic 122–148; BP diastolic 57–85; PULSE 66–76; RESP 15–20; TEMP 36; O2SAT 98–100
--- NOTE | 2023-10-12 15:00 | DI.RAD.S_ITS ---
PROCEDURE: PAIN L/S FACET INJ/BLK 1ST ANGELITA INDICATIONS: FACET ARTHROPATHY COMPARISON: [facility], , PAIN L/S FACET INJ/BLK 1ST AGNELITA, 08/31/2023, 12:26. FINDINGS: Fluoroscopic spot filming was performed to verify placement of spinal needles at the left L3 through L5 level(s), as labeled on the films. Appropriate location(s) of the needle tip(s) was confirmed by injection of iodinated contrast. IMPRESSION: Fluoroscopic guidance utilized for a medial branch block. Dictated by: Filippo Mata M.D. on 10/12/2023 at 17:25 Approved by: Filippo Mata M.D. on 10/12/2023 at 17:25
[2023-10-12] MEDS: MIDAZOLAM 2 MG/2 ML VIAL IV (15:39)
[2023-10-12] MEDS: iopamidoL 15 ML VIAL 3 ML INJ (15:51)
[2023-10-12] MEDS: LIDOCAINE 1% 20 ML 5 ML INJ (15:52)
[2023-10-12] MEDS: LIDOCAINE 2% INJ SDV 5ML 10 ML INJ (15:53)
--- NOTE | 2023-10-12 16:08 | P.PCN_ITS ---
Date/Time/Diagnoses Date of procedure: 10/12/23 Time of procedure: 16:08 Pre-procedure diagnosis: 1. FACET ARTHROPATHY Post-procedure diagnosis: same Procedure Notes Procedure: 1. BILATERAL L3, L4 AND L5 DIAGNOSTIC MB BLOCKS Indications: Alexandra/Renae is referred by Dr. Woo for treatment of Bilateral Axial LBP. Physician: Michael Rivera Total Fluoroscopy time (seconds): 12 Total sedation minutes: 18 Complications: none Procedure in detail & Post-procedure care: DESCRIPTION OF PROCEDURE Fluoroscopically guided, contrast-controlled bilateral L3, L4 AND L5 medial branch blocks with 0.5cc of 2% Lidocaine. Following review of allergy and review of potential side effects and complications, including, but not necessarily limited to, infection, allergic reaction, local tissue breakdown, nerve injury, paralysis, stroke and possible , the patient indicated that the patient understood and agreed to proceed. An informed consent document was signed by the patient, witnessed by a nurse, and placed in the patient's chart. After review of previous anaesthesic history and IV conscious sedation the patient was deemed safe to proceed with today's procedure with IV conscious sedation as ASA class II designation. Safety time-out was performed to confirm patient ID, procedure to be performed and site of procedure. IV sedation was accomplished with a combination of 2mg of Versed was administered by the RN after DO order, titrated to patient comfort during the course of the procedure while the patient remained responsive to all verbal commands In the prone position, following sterile prep and drape of the lumbar region, the right L3, L4 AND L5 anatomical location of the medial branch of the dorsal ramus was identified fluoroscopically. Subsequently an anesthetic skin wheal using 1% lidocaine solution was initiated at each of the anatomical spots. Subsequently then a 22-gauge 3.5-inch spinal needle was atraumatically introduced and advanced under fluoroscopic guidance at each of the corresponding sites at the right L3, L4 and L5 MB. After negative aspiration, 0.2cc of Isovue 200 was injected, confirming placement without vascular or intrathecal uptake. Subsequently then 0.5cc of 2% Lidocaine solution was injected at each of the corresponding sites at the right L3, L4 and L5 medial branch locations. The identical procedure was replicated on the left. The patient tolerated the procedure well without signs or symptoms of complications. The patient tolerated the procedure well without signs or symptoms of complications prior to transfer to the recovery area continued monitoring without incident. Post-procedure, the patient was monitored initiating provocative activities to measure the amount of relief from block of the facetogenic pain. The patient reported a VAS of 7 prior to the procedure and a post-procedure VAS of 1. It has been a pleasure to assist in the diagnostic and therapeutic care of your patient. POST OP INSTRUCTIONS The patient was provided with a Pain Log to complete over the next several hours and subsequent days prior to the patient's follow up with the ordering physician. If the patient has area representative relief to the solution applied, then they may be a candidate for medial branch rhizotomy. The patient is aware, was provided, once again, with a Pain Log and will follow up with the referring physician for review and clinical correlation
== END 2023-10-12 16:20 | disposition home or self-care (01) ==
PROVIDERS: Family Provider Internal Medicine; PCP Family Medicine; Referring Provider Physical Medicine & Rehabilitation; Visit Provider Physical Medicine & Rehabilitation
DX: M47.816 Spondylosis without myelopathy or radiculopathy, lumbar region (principal)
CPT/HCPCS: 64493; 64494; 99152; J2250

== ENCOUNTER 2023-11-23 07:14 | Outpatient (CLI) | payer MEDICARE, BC, SELFPAY ==
[2023-02-16 16:28] VITALS: BMI 31.1
[2023-11-23] VITALS (14 sets, daily range): BP systolic 117–141; BP diastolic 55–71; PULSE 66–73; RESP 14–20; TEMP 36.2; O2SAT 98–100
--- NOTE | 2023-11-23 08:00 | DI.RAD.S_ITS ---
PROCEDURE: PAIN L/S MED/LAT N RFA BILAT INDICATIONS: facet arthopathy COMPARISON: None. FINDINGS: Fluoroscopic spot filming was performed to verify placement of spinal needles at the L3, L4, and L5 level(s), as labeled on the films. Appropriate location(s) of the needle tip(s) was confirmed by injection of iodinated contrast. IMPRESSION: Right lumbar facet injection under fluoroscopic guidance. Dictated by: Judy Llamas M.D. on 11/23/2023 at 11:15 Approved by: Judy Llamas M.D. on 11/23/2023 at 11:16
[2023-11-23] MEDS: MIDAZOLAM 2 MG/2 ML VIAL 1 MG IV ×2 (08:30→09:00)
[2023-11-23] MEDS: fentaNYL 100 MCG/2 ML INJ 25 MCG IV (08:30)
[2023-11-23] MEDS: BUPIVACAINE 0.5% (PF) 10 ML VIAL 2 ML INJ (08:34)
[2023-11-23] MEDS: LIDOCAINE 1% 20 ML INJ (08:35)
--- NOTE | 2023-11-23 09:22 | P.PCN_ITS ---
Date/Time/Diagnoses Date of procedure: 11/23/23 Time of procedure: 09:22 Pre-procedure diagnosis: 1. RECALCITRANT FACET ARTHROPATHY Post-procedure diagnosis: same Procedure Notes Procedure: 1. BILATERAL L3, L4 AND L5 MEDIAL BRANCH RADIOFREQUENCY NEUROTOMY Indications: Alexandra is referred by Dr. Woo for treatment of facet arthropathy. Physician: Michael Rivera Total Fluoroscopy time (seconds): 33 Total sedation minutes: 47 Complications: none Procedure in detail & Post-procedure care: DESCRIPTION OF PROCEDURE Bilateral L3, L4 and L5 medial branch radiofrequency neurotomy The patient is well known to this clinic having undergone previous facet injections with good but temporary relief. The patient has experienced appropriate, concordant relief with previous facet and median branch blocks but the patient's pain has been recalcitrant to further conservative measures. Therefore, based upon the patient's relief and persistent symptoms, the patient is considered an appropriate candidate for facet rhizotomy. All of the patient's questions regarding the risks versus benefits of the procedure, including, but not limited to, bleeding, infection, temporary as well as lasting nerve injury, paralysis, stroke, and , as well treatment alternatives were answered to satisfaction. After obtaining informed consent, denial of pertinent drug allergies, as well as being made aware of the potential risks of bleeding, infection, spinal cord trauma, paralysis, temporary and permanent nerve damage, seizure, stroke, and possible , the patient was brought to the fluoroscopy suite and positioned prone on the fluoroscopy table. After review of previous anaesthesic history and IV conscious sedation the patient was deemed safe to proceed with today's procedure with IV conscious sedation as ASA class II designation. Safety time-out was performed to confirm patient ID, procedure to be performed and site of procedure. IV sedation was accomplished with a combination of 2mg of Versed and 25mcg of Fentanyl administered by the RN after DO order, titrated to patient comfort during the course of the procedure while the patient remained responsive to all verbal commands. The lumbar region was prepped in usual sterile fashion and covered with a fenestrated drape in the usual sterile fashion. Appropriate monitors applied including pulse oximeter, pulse, and blood pressure for regular monitoring throughout the procedure. After local infiltration using 1% lidocaine, under fluoroscopic guidance, a 10- cm RF insulated needle with a 10-mm active tip was positioned parallel to the junction of the right the superior articulating process where the L5 medial branch resides. Needle placement was confirmed with motor stimulation of .5v on the right which produced local stimulation without radicular component. The stimulation was then increased to 2v with, once again, only local multifidus stimulation without radicular component. The needle was then removed and the identical procedure was performed along the length of the right L4 medial branch with motor stimulation at .7v on the right. The identical procedure was once again performed along the length of the right L3 and medial branch with motor stimulation of .5v on the right. The medial branches were then anesthetised with 0.5% marcaine. This was then followed by two discreet lesions performed at 80 degrees Celsius for 90 seconds each. The identical procedures were repeated on the left. The patient tolerated the procedure well without signs or symptoms of complications prior to transfer to the recovery area continued monitoring without incident. The patient was then transferred to the recovery area where they were observed for an appropriate period of time after the injection. The patient reported a VAS score of 9 prior to the procedure and a post-procedure VAS of 0. POST OP INSTRUCTIONS The patient was provided a Pain Log to continue to record the patient's response to the target-specific procedure prior to the patient's follow-up visit with the referring physician. Additionally, specific post-injection care instructions and a contact number to our office were provided if concerns arise regarding possible complications associated with the procedure are suspected.
== END 2023-11-23 09:40 | disposition home or self-care (01) ==
PROVIDERS: Family Provider Internal Medicine; PCP Family Medicine; Referring Provider Physical Medicine & Rehabilitation; Visit Provider Physical Medicine & Rehabilitation
DX: M47.816 Spondylosis without myelopathy or radiculopathy, lumbar region (principal)
CPT/HCPCS: 64635; 64636; 99152; 99153; J2250; J3010

== ENCOUNTER → 2024-02-07 09:32 | Outpatient (CLI) | payer MEDICARE, BC, SELFPAY ==
[2023-02-16 16:28] VITALS: BMI 31.1
[2024-02-07 10:34] LABS: Hematocrit 38.8 % (36-46); Hemoglobin 13.1 g/dL (12.0-16.0); Mean Corpuscular HGB Conc 33.8 % (30-36); Mean Corpuscular Hemoglobin 30.8 PG (26-34); Platelet Count 305 X10^3/uL (150-400); Red Blood Cell Count 4.27 X10^6/uL (4.0-5.2); Red Cell Distribution Width 13.2 % (11.6-14.8); White Blood Cell Count 12.2 X10^3/uL (4.5-11.0)
[2024-02-07 10:50] LABS: BUN Creatinine Ratio 16.3 (6-22); Blood Urea Nitrogen 17 mg/dL (7-17); Calcium 9.6 mg/dL (8.4-10.2); Carbon Dioxide 26 mmol/L (22-32); Chloride 107 mmol/L (98-107); Cholesterol 166 mg/dL (140-199); Estimated Glomerular Filt Rate 56 mL/min (>60); Glucose 102 mg/dL (80-110); HDL Cholesterol 54 mg/dL (40-60); HEMOLYSIS < 15 (0-50); LDL Cholesterol Calculated 76 mg/dL (<100); Sodium 139 mmol/L (137-145); Triglycerides 178 mg/dL (35-150)
== END ==
PROVIDERS: Family Provider Internal Medicine; PCP Family Medicine; Referring Provider Internal Medicine Cardiovascular Disease; Visit Provider Internal Medicine Cardiovascular Disease
DX: Z00.00 Encounter for general adult medical examination without abnormal findings (principal); I48.19 Other persistent atrial fibrillation; I50.22 Chronic systolic (congestive) heart failure
CPT/HCPCS: 36415; 80048; 80061; 85027

== ENCOUNTER 2024-03-09 13:39 | Outpatient (CLI) | payer MEDICARE, BC, SELFPAY ==
[2023-02-16 16:28] VITALS: BMI 31.1
[2024-03-09] VITALS (9 sets, daily range): BP systolic 114–148; BP diastolic 54–98; PULSE 70–73; RESP 13–20; TEMP 36.9; O2SAT 98–100
--- NOTE | 2024-03-09 14:00 | DI.RAD.S_ITS ---
PROCEDURE: PAIN L/S TRANSFORAMINAL INJECT INDICATIONS: Left L3-4 transforaminal CORNEL COMPARISON: [facility], , PAIN L/S TRANSFORAMINAL INJECT, 07/07/2022, 10:57. FINDINGS: Fluoroscopic spot filming was performed to verify placement of spinal needles at the L3-4 level(s), as labeled on the films. Appropriate location(s) of the needle tip(s) was confirmed by injection of iodinated contrast. IMPRESSION: Fluoro guidance was provided intraoperatively for left L3-4 transforaminal CORNEL performed by ordering physician. Dictated by: Todd Brizuela M.D. on 03/09/2024 at 17:10 Approved by: Todd Brizuela M.D. on 03/09/2024 at 17:14
[2024-03-09] MEDS: MIDAZOLAM 2 MG/2 ML VIAL 1 MG IV (14:44)
[2024-03-09] MEDS: BUPIVACAINE 0.25% (PF) VIAL 2 ML INJ (14:49)
[2024-03-09] MEDS: DEXAMETHASONE 10 MG/ML VIAL INJ (14:49)
[2024-03-09] MEDS: BETAMETHASONE 30 MG/5 ML MDV 6 MG INJ (14:50)
[2024-03-09] MEDS: iopamidoL 15 ML VIAL 3 ML INJ (14:50)
--- NOTE | 2024-03-09 15:04 | P.PCN_ITS ---
Date/Time/Diagnoses Date of procedure: 03/09/24 Time of procedure: 15:04 Pre-procedure diagnosis: 1. FORAMINAL STENOSIS WITH LE SYMPTOMS Post-procedure diagnosis: same Procedure Notes Procedure: 1. FLUOROSCOPICALLY GUIDED CONTRAST CONTROLLED TRANSFORAMINAL EPIDURAL STEROID INJECTION - LEFT L4/5 Indications: Alexandra is referred by Dr. Woo for treatment of Foraminal Stenosis with Left LE Symptoms Physician: Michael Rivera Total Fluoroscopy time (seconds): 14 Total sedation minutes: 15 Complications: none Procedure in detail & Post-procedure care: FINDINGS Foraminal Nerve Root Compression secondary to disc disease and facet hypertrophy DESCRIPTION OF PROCEDURE Following review of allergy and review of potential side effects and complications, including, but not necessarily limited to, infection, allergic reaction, local tissue breakdown, stroke, temporary or permanent nerve injury, paralysis, and possible , the patient indicated that the patient understood and agreed to proceed. An informed consent document was signed by the patient, witnessed by a nurse, and placed in the patient's chart. Additionally, other treatment options including medications, modalities, and physical therapy were reviewed with the patient. After review of previous anaesthesic history and IV conscious sedation the patient was deemed safe to proceed with today?s procedure with IV conscious sedation as ASA class II designation. Safety time-out was performed to confirm patient ID, procedure to be performed and site of procedure. IV sedation was accomplished with a combination of 1mg of Versed administered by the RN after DO order, titrated to patient comfort during the course of the procedure while the patient remained responsive to all verbal commands In the prone position following sterile prep and drape of the lumbar region, the left L4/5 posterior neuroforamen was identified fluoroscopically. The skin was anesthetized via a 25-gauge 1.5-inch needle with 1% lidocaine solution. At this point, a 25-gauge 3.5-inch spinal needle was atraumatically introduced and advanced under fluoroscopic guidance through the posterior left L4/5 neuroforamen to approximately the anterior aspect of the canal. Depth was confirmed on lateral view. Following negative aspiration, injection of approximately 1.5 cc of Isovue 200 under live fluoroscopy in the AP view confirmed excellent flow along the nerve root, into the epidural space without vascular or intrathecal uptake observed Radiological data, including multiple fluoroscopic views of the lumbosacral spine, reveal a spinal needle at the left L4/5 posterior neuroforamen. Subsequent views show flow of contrast material flowing superiorly and inferiorly along the nerve root confirming epidural flow. Subsequently, a test dose of 1.5 cc of 1% lidocaine solution was administered and patient was observed for two minutes for signs or symptoms of complications, including abdominal pain, shortness of breath, bilateral upper or lower extremity weakness, nausea and vomiting, prior to steroid injection. At this point, a total of 2cc or 10mg of dexamethasone and 6mg of betamethasone was injected without incident. The procedure tolerated the procedure well without signs or symptoms of complications prior to transfer to the recovery area continued monitoring without incident. The patient was then transferred to the recovery area where they were observed for an appropriate time after the injection. The patient reported a VAS score of 7 prior to the procedure and a post- procedure VAS of 0. POST OP INSTRUCTIONS The patient was provided a Pain Log to continue to record their response to the target-specific procedure prior to follow-up visit with their referring physician. Additionally, specific post-injection care instructions and a contact number to our office were provided if concerns arise regarding possible complications associated with the procedure are suspected.
== END 2024-03-09 15:25 | disposition home or self-care (01) ==
LOC: RAD 13:40
PROVIDERS: Family Provider Internal Medicine; PCP Family Medicine; Referring Provider Physical Medicine & Rehabilitation; Visit Provider Physical Medicine & Rehabilitation
DX: M48.061 Spinal stenosis, lumbar region without neurogenic claudication (principal)
CPT/HCPCS: 64483; 99152; J0702; J1100; J2250; J3490

== ENCOUNTER → 2024-08-16 09:45 | Outpatient (CLI) | payer MEDICARE, BC, SELFPAY ==
[2023-02-16 16:28] VITALS: BMI 31.1
--- NOTE | 2024-08-16 09:48 | DI.RAD.S_ITS ---
PROCEDURE: XR LUMBAR SPINE MIN 4V INDICATIONS: LBP s/p fall TECHNIQUE: 5 views of the lumbar spine were acquired, including bilateral oblique views. COMPARISON: [facility], CR, XR LUMBAR SPINE MIN 4V, 07/26/2023, 7:34. FINDINGS: Bones: 5 nonrib-bearing vertebrae are present. There is normal bony alignment. Loss of disc height, degenerative endplate changes and bilateral facet arthrosis throughout lumbar spine is seen more notably at L3-4 and L4-5 levels. Age indeterminate anterior wedge compression deformity involving inferior endplate of L1 vertebral body with up to 25% loss of L1 vertebral body height anteriorly. No suspicious bony lesions. Soft tissues: Overlying bowel gas pattern is normal. No suspicious soft tissue calcifications. Oblique images: No pars defects. Bilateral bony foraminal stenosis at L3-4 and L4-5 levels are seen. IMPRESSION: 1. Age indeterminate anterior wedge compression deformity involving inferior endplate of L1 vertebral body with up to 25% loss of L1 vertebral body height. This is a new finding since 2022 study. No other compression fracture or spondylolisthesis is seen. 2. Degenerative disc disease throughout lumbar spine with suggestion of bilateral bony foraminal stenosis at L3-4 and L4-5 level seen on oblique views. No pars defects. Dictated by: Todd Brizuela M.D. on 08/16/2024 at 13:15 Approved by: Todd Brizuela M.D. on 08/16/2024 at 13:21
== END ==
LOC: RAD 09:47
PROVIDERS: Family Provider Internal Medicine; PCP Family Medicine; Referring Provider Physical Medicine & Rehabilitation; Visit Provider Physical Medicine & Rehabilitation
DX: M47.816 Spondylosis without myelopathy or radiculopathy, lumbar region (principal); M51.369 Other intervertebral disc degeneration, lumbar region without mention of lumbar back pain or lower extremity pain; M43.8X6 Other specified deforming dorsopathies, lumbar region
CPT/HCPCS: 72110

== ENCOUNTER → 2024-09-26 11:54 | Outpatient (CLI) | payer MEDICARE, BC, SELFPAY ==
[2023-02-16 16:28] VITALS: BMI 31.1
[2024-09-26 12:21] LABS: Add Manual Diff / Slide Review YES; Hematocrit 38.6 % (36-46); Hemoglobin 12.9 g/dL (12.0-16.0); Mean Corpuscular HGB Conc 33.3 % (30-36); Mean Corpuscular Hemoglobin 31.1 PG (26-34); Mean Corpuscular Volume 93.3 fL (80-100); Platelet Count 289 X10^3/uL (150-400); Red Blood Cell Count 4.14 X10^6/uL (4.0-5.2); Red Cell Distribution Width 13.8 % (11.6-14.8); White Blood Cell Count 15.2 X10^3/uL (4.5-11.0)
[2024-09-26 12:41] LABS: Neutrophils Absolute Manual 5472 /uL (3000-5900); RBC Morphology Normal Morphology; Total Cells Counted 100
[2024-09-26 12:51] LABS: Alanine Aminotransferase 19 IU/L (<35); Albumin 4.6 g/dL (3.5-5.0); Albumin Globulin Ratio 1.7 (1.0-2.8); Alkaline Phosphatase 78 U/L (38-126); Aspartate Aminotransferase 31 IU/L (14-36); BUN Creatinine Ratio 17.2 (6-22); Bilirubin Total 0.5 mg/dL (0.2-1.3); Blood Urea Nitrogen 20 mg/dL (7-17); Calcium 9.7 mg/dL (8.4-10.2); Carbon Dioxide 27 mmol/L (22-32); Chloride 105 mmol/L (98-107); Estimated Glomerular Filt Rate 49 mL/min (>60); Globulin 2.7 g/dL (1.7-4.1); Glucose 100 mg/dL (80-110); HEMOLYSIS < 15 (0-50); Potassium 4.7 mmol/L (3.4-5.1); Sodium 139 mmol/L (137-145); Total Protein 7.3 g/dL (6.3-8.2)
[2024-09-26 13:21] LABS: TSH w/ Reflex to FT4 0.89 uIU/mL (0.47-4.68)
== END ==
PROVIDERS: Family Provider Internal Medicine; PCP Family Medicine; Referring Provider Family Medicine; Visit Provider Family Medicine
DX: Z00.00 Encounter for general adult medical examination without abnormal findings (principal); I48.19 Other persistent atrial fibrillation; R53.82 Chronic fatigue, unspecified
CPT/HCPCS: 80053; 84443; 85007; 85025

== ENCOUNTER → 2024-10-18 | Outpatient (CLI) | payer MEDICARE, BC, SELFPAY ==
[2023-02-16 16:28] VITALS: BMI 31.1
--- NOTE | 2024-10-18 14:48 | DI.RAD.S_ITS ---
PROCEDURE: XR DEXA AXIAL SKELETON INDICATIONS: screening for osteoporosis COMPARISON: [facility], [facility], XR DEXA AXIAL SKELETON, 06/09/2022, 12:27. FINDINGS: Lumbar Spine: Bone mineral density 1.226 g/cm2, T score 1.6, Z-score 4.1. Left Femoral Neck: Bone mineral density is 0.728 g/cm2, T score -1.1. Left Hip: Bone mineral density 0.817 g/cm2, T score -1.0, Z-score 0.8. . Fracture Risk Calculation (when applicable): 10-year fracture risk of a major osteoporotic fracture 10 percent of a hip fracture 1.7 percent. (T score greater or equal to -1.0 to: NORMAL) (T score from -1.1 to -2.4: OSTEOPENIA) (T score less than or equal to -2.5: OSTEOPOROSIS) IMPRESSION: Lumbar spine normal, left hip osteopenia. Follow-up guidelines as follows: Osteoporosis: Consider a repeat DEXA and Vertebral Fracture Assessment (VFA) exam in 2 years or sooner if medically necessary, to reassess this patient's status. Osteopenia: Consider a repeat DEXA in 2-3 years to reassess this patient's status, or if there is a new clinical indication. Normal: Consider a repeat DEXA in 5 years or sooner, or if there is a new clinical indication. All treatment decisions require clinical judgment and consideration of individual patient factors, including patient preferences, comorbidities, previous drug use, risk factors not captured in the FRAX model (e.g., frailty, falls, vitamin D deficiency, increased bone turnover, interval significant decline in bone density ) and possible under- or over-estimation of fracture risk by FRAX. In addition, the NOF Guide recommends that FDA-approved medical therapies be considered in postmenopausal women and men age >= 50 years with a: * Hip or vertebral (clinical or morphometric) fracture * T-score of <=-2.5 at the spine or hip * Ten-year fracture probability by FRAX of >= 3% for hip fracture or >=20% for major osteoporotic fracture. Dictated by: Orlando Alarcon M.D. on 10/18/2024 at 18:07 Approved by: Orlando Alarcon M.D. on 10/18/2024 at 18:17
--- NOTE | 2024-10-18 14:48 | DI.MG.S_ITS ---
BILATERAL DIGITAL SCREENING MAMMOGRAM 3D/2D WITH CAD: 10/18/2024 CLINICAL: Routine screening. Family history of breast cancer. Comparison is made to exams dated: 06/09/2022 mammogram - [facility], 09/14/2018 mammogram, and 01/08/2016 mammogram - out side. The breasts are heterogeneously dense, which may obscure small masses (category c / 51-75% glandular tissue). Current study was also evaluated with a Computer Aided Detection (CAD) system. There are benign vascular calcifications in both breasts. No significant masses, calcifications, or other findings are seen in either breast. There has been no significant interval change. IMPRESSION: BENIGN There is no mammographic evidence of malignancy. A 1 year screening mammogram is recommended. Based on the Tyrer Cuzick model (a risk assessment model) the patient's lifetime risk is 5.1% and her 10 year risk is 0.0%. According to the ACR, ACS, and NCCN guidelines, an annual breast MRI exam along with mammogram is recommended if the patient's lifetime risk is 20% or greater. This exam was interpreted at Station ID: [id number]. NOTE: For mammograms, a report in lay terms will be sent to the patient. Approximately 15% of breast malignancies will not be visualized mammographically. In the management of a palpable breast mass, a negative mammogram must not discourage biopsy of a clinically suspicious lesion. Electronically Signed By: Jon shoemaker/ranjan:10/26/2024 14:12:13 letter sent: Normal Exam ACR BI-RADS Category 2: Benign
== END ==
PROVIDERS: Family Provider Internal Medicine; PCP Family Medicine; Referring Provider Family Medicine; Visit Provider Family Medicine
DX: Z12.31 Encounter for screening mammogram for malignant neoplasm of breast (principal); Z80.3 Family history of malignant neoplasm of breast; R92.333 Mammographic heterogeneous density, bilateral breasts; M85.89 Other specified disorders of bone density and structure, multiple sites
CPT/HCPCS: 77063; 77067; 77080

== ENCOUNTER → 2024-10-27 13:29 | Outpatient (CLI) | payer MEDICARE, BC, SELFPAY ==
[2023-02-16 16:28] VITALS: BMI 31.1
--- NOTE | 2024-10-27 13:30 | DI.ECHO.S_ITS ---
[place] [facility] : : [id number] : [place] : : [id number] : : Phone: [phone] Echocardiogram Report + + :Name: LUIS EDUARDO MATHIS Study Date: 10/27/2024 Height: 64 in : :[facility] ReadingLocation: Weight: 175 lb : : Gender: Female BSA: 1.8 m2 : :: 1950 Age: 74 yrs BP: 120/73 mmHg: :Reason For Study: FATIGUE, ATRIAL FIBRILLATION : :Ordering Physician: TUNG, : :CLARK Performed By: Christos Castro : :Referring: CLARK RUBY : + + Interpretation Summary The ejection fraction is estimated to be 60-65%. Diastolic parameters suggest probable normal left ventricular diastolic function and normal filling pressures. The right ventricle is normal in size and function. The right ventricular systolic pressure is estimated to be at least 42 mmHg based on an estimated right atrial pressure of 3 mm Hg. There is mild mitral regurgitation. There is mild tricuspid regurgitation. Procedure: A two-dimensional transthoracic echocardiogram with color flow and Doppler was performed. The study quality was technically good. Comparison is made with the echocardiogram of 06/07/2023. The patient was in atrial fibrillation with heart rates between 50-65 bpm during the exam. Left Ventricle: The left ventricle is normal in size. There is normal left ventricular wall thickness. There is no ventricular septal defect visualized. The ejection fraction is estimated to be 60-65%. There are no focal wall motion abnormalities. Diastolic parameters suggest probable normal left ventricular diastolic function and normal filling pressures. Right Ventricle: The right ventricle is normal in size and function. Atria: The left atrium is mildly dilated. The right atrium is moderately dilated. There is no Doppler evidence for an atrial septal defect. Mitral Valve: The mitral valve leaflets are mildly calcified. There is mild mitral regurgitation. Aortic Valve: The aortic valve is trileaflet. The aortic valve opens well. There is no aortic valve stenosis. No aortic regurgitation is present. Tricuspid Valve: The tricuspid valve leaflets are thin and pliable. There is mild tricuspid regurgitation. The right ventricular systolic pressure is estimated to be at least 42 mmHg based on an estimated right atrial pressure of 3 mm Hg. Pulmonic Valve: The pulmonic valve leaflets are thin and pliable; valve motion is normal. There is no pulmonic valvular regurgitation. Great Vessels: The aortic root is normal size. The dimensions of the ascending aorta are normal. The pulmonary artery is normal size. The IVC is of normal diameter and collapses greater than 50% with a sniff. This suggests a low right atrial pressure of 3 mm Hg. Pericardium/ Pleura There is no pericardial effusion. There is no pleural effusion. MMode/2D Measurements & Calculations LVIDd: 4.5 cm LVOT diam: 1.8 cm LVIDs: 2.9 cm Ao root diam: 2.9 cm FS: 34.7 % asc Aorta Diam: 3.1 cm EPSS: 0.37 cm Ao Arch Diam (Prox Trans): 2.0 cm IVSd: 1.0 cm LVPWd: 0.89 cm LV power. diameter/BSA (cm/m^2): 2.4 LV sys. diameter/BSA (cm/m^2): 1.6 LA A2 area: 21.4 cm2 RA long axis: 5.5 cm LA A4 area: 24.4 cm2 RA area: 19.4 cm2 LA length (vol): 6.4 cm RA vol: 58.5 ml LA vol: 69.7 ml RA : 31.7 ml/m2 LA vol index: 37.7 ml/m2 IVC diam: 1.5 cm RVD1 (basal): 3.5 cm RVD2 (mid): 2.8 cm TAPSE: 2.7 cm Doppler Measurements & Calculations Ao V2 max: 133.3 cm/sec LVOT Max Luis Carlos: 122.8 cm/sec Ao V2 mean: 93.0 cm/sec LV V1 max P.0 mmHg Ao max P.1 mmHg LV V1 VTI: 29.3 cm Ao mean P.8 mmHg SHELLIE(I,D): 2.1 cm2 Ao V2 VTI: 34.7 cm SHELLIE(V,D): 2.3 cm2 sev ratio: 0.84 SHELLIE indexed to BSA (cm^2/m^2): 1.2 MV E max luis carlos: 110.0 cm/sec TR max luis carlos: 314.0 cm/sec MV A max luis carlos: 59.9 cm/sec TR max P.4 mmHg MV E/A: 1.8 PA V2 max: 67.7 cm/sec Med Peak E' Luis Carlos: 10.3 cm/sec PA V2 mean: 47.2 cm/sec E/E' med: 10.7 PA mean P.99 mmHg Lat Peak E' Luis Carlos: 9.8 cm/sec PA pr(Accel): -8.3 mmHg E/E' lat: 11.2 E/e' average: 11.0 MV dec time: 0.17 sec SV(LVOT): 74.1 ml Reading Physician:05:10 PM
== END ==
PROVIDERS: Family Provider Internal Medicine; PCP Family Medicine; Referring Provider Family Medicine; Visit Provider Family Medicine
DX: I48.19 Other persistent atrial fibrillation (principal); R53.82 Chronic fatigue, unspecified; I08.1 Rheumatic disorders of both mitral and tricuspid valves
CPT/HCPCS: 93306

== ENCOUNTER 2024-12-12 14:16 | Outpatient (CLI) | payer MEDICARE, BC, SELFPAY ==
[2023-02-16 16:28] VITALS: BMI 31.1
[2024-12-12] VITALS (9 sets, daily range): BP systolic 114–172; BP diastolic 57–80; PULSE 57–65; RESP 18–20; TEMP 36.9; O2SAT 97–100
[2024-12-12] MEDS: MIDAZOLAM 2 MG/2 ML VIAL IV (15:31)
[2024-12-12] MEDS: BUPIVACAINE 0.25% (PF) VIAL 2 ML INJ (15:36)
[2024-12-12] MEDS: DEXAMETHASONE 10 MG/ML VIAL 20 MG INJ (15:37)
[2024-12-12] MEDS: BETAMETHASONE 30 MG/5 ML MDV 12 MG INJ (15:37)
[2024-12-12] MEDS: iopamidoL 15 ML VIAL 3 ML INJ (15:38)
[2024-12-12] MEDS: BETAMETHASONE 30 MG/5 ML MDV 6 MG INJ (15:48)
--- NOTE | 2024-12-12 15:54 | PM.PROC.IR.1 ---
Date/Time/Diagnoses Date of procedure: 12/12/24 Time of procedure: 15:54 Pre-procedure diagnosis: 1. FORAMINAL STENOSIS WITH LE SYMPTOMS Procedure Notes Procedure: 1. FLUOROSCOPICALLY GUIDED CONTRAST CONTROLLED TRANSFORAMINAL EPIDURAL STEROID INJECTION - BILATERAL L4/5 TFESI Indications: Farida is referred by Dr. Woo for treatment of Foraminal Stenosis with bilateral LE Symptoms Physician: Michael Rivera Total Fluoroscopy time (seconds): 23 Total sedation minutes: 20 Complications: none Procedure in detail & Post-procedure care: FINDINGS Foraminal Nerve Root Compression secondary to disc disease and facet hypertrophy DESCRIPTION OF PROCEDURE Following review of allergy and review of potential side effects and complications, including, but not necessarily limited to, infection, allergic reaction, local tissue breakdown, stroke, temporary or permanent nerve injury, paralysis, and possible , the patient indicated that the patient understood and agreed to proceed. An informed consent document was signed by the patient, witnessed by a nurse, and placed in the patient's chart. Additionally, other treatment options including medications, modalities, and physical therapy were reviewed with the patient. After review of previous anaesthesic history and IV conscious sedation the patient was deemed safe to proceed with today?s procedure with IV conscious sedation as ASA class II designation. Safety time-out was performed to confirm patient ID, procedure to be performed and site of procedure. IV sedation was accomplished with a combination of 2mg of Versed was administered by the RN after DO order, titrated to patient comfort during the course of the procedure while the patient remained responsive to all verbal commands In the prone position following sterile prep and drape of the lumbar region, the right L4/5 posterior neuroforamen was identified fluoroscopically. The skin was anesthetized via a 25-gauge 1.5-inch needle with 1% lidocaine solution. At this point, a 25-gauge 3.5-inch spinal needle was atraumatically introduced and advanced under fluoroscopic guidance through the posterior right L4/5 neuroforamen to approximately the anterior aspect of the canal. Depth was confirmed on lateral view. Following negative aspiration, injection of approximately 1.5cc of Isovue 200 under live fluoroscopy in the AP view confirmed excellent flow along the nerve root, into the epidural space without vascular or intrathecal uptake observed Radiological data, including multiple fluoroscopic views of the lumbosacral spine, reveal a spinal needle at the right L4/5 posterior neuroforamen. Subsequent views show flow of contrast material flowing superiorly and inferiorly along the nerve root confirming epidural flow. Subsequently, a test dose of 1.5cc of 1% lidocaine solution was administered and patient was observed for two minutes for signs or symptoms of complications, including abdominal pain, shortness of breath, bilateral upper or lower extremity weakness, nausea and vomiting, prior to steroid injection. At this point, a total of 2cc or 10mg of dexamethasone and 6mg betamethasone was injected without incident. Attention was then refocused to the left L4/5 level where the identical procedure was replicated. The procedure tolerated the procedure well without signs or symptoms of complications prior to transfer to the recovery area continued monitoring without incident. The patient was then transferred to the recovery area where they were observed for an appropriate time after the injection. The patient reported a VAS score of 7 prior to the procedure and a post-procedure VAS of 0. POST OP INSTRUCTIONS The patient was provided a Pain Log to continue to record their response to the target-specific procedure prior to follow-up visit with their referring physician. Additionally, specific post-injection care instructions and a contact number to our office were provided if concerns arise regarding possible complications associated with the procedure are suspected.
== END 2024-12-12 16:08 | disposition home or self-care (01) ==
PROVIDERS: Family Provider Internal Medicine; PCP Family Medicine; Referring Provider Physical Medicine & Rehabilitation; Visit Provider Physical Medicine & Rehabilitation
DX: M48.061 Spinal stenosis, lumbar region without neurogenic claudication (principal); M51.16 Intervertebral disc disorders with radiculopathy, lumbar region; M47.26 Other spondylosis with radiculopathy, lumbar region
CPT/HCPCS: 64483; 99152; J0702; J1100; J2250; J3490

== ENCOUNTER → 2025-01-24 09:50 | Outpatient (CLI) | payer MEDICARE, BC, SELFPAY ==
[2023-02-16 16:28] VITALS: BMI 31.1
[2025-01-24 10:39] LABS: Hematocrit 38.3 % (36-46); Hemoglobin 12.9 g/dL (12.0-16.0); Mean Corpuscular HGB Conc 33.7 % (30-36); Mean Corpuscular Hemoglobin 31.6 PG (26-34); Mean Corpuscular Volume 93.8 fL (80-100); Platelet Count 305 X10^3/uL (150-400); Red Blood Cell Count 4.08 X10^6/uL (4.0-5.2); Red Cell Distribution Width 13.8 % (11.6-14.8); White Blood Cell Count 18.4 X10^3/uL (4.5-11.0)
[2025-01-24 11:05] LABS: BUN Creatinine Ratio 15.6 (6-22); Blood Urea Nitrogen 20 mg/dL (7-17); Carbon Dioxide 25 mmol/L (22-32); Chloride 103 mmol/L (98-107); Cholesterol 180 mg/dL (140-199); Estimated Glomerular Filt Rate 43 mL/min (>60); Glucose 103 mg/dL (70-99); HDL Cholesterol 49 mg/dL (40-60); HEMOLYSIS < 15 (0-50); LDL Cholesterol Calculated 105 mg/dL (<100); Potassium 4.5 mmol/L (3.4-5.1); Sodium 137 mmol/L (137-145); Triglycerides 130 mg/dL (35-150)
== END ==
LOC: LAB 09:53
PROVIDERS: Family Provider Internal Medicine; PCP Family Medicine; Referring Provider Internal Medicine Cardiovascular Disease; Visit Provider Internal Medicine Cardiovascular Disease
DX: I48.19 Other persistent atrial fibrillation (principal); E78.5 Hyperlipidemia, unspecified; Z79.01 Long term (current) use of anticoagulants
CPT/HCPCS: 36415; 80048; 80061; 85027

== ENCOUNTER 2025-02-26 09:23 | Day surgery (SDC) | payer MEDICARE, BC, SELFPAY ==
[2023-02-16 16:28] VITALS: BMI 31.1
[2025-01-15 09:37] VITALS: BMI 28.6
[2025-02-26] MEDS: LACTATED RINGERS 1,000 ML 84 ML IV (09:43)
[2025-02-26 09:49] VITALS: BP 149/71; PULSE 87; RESP 17; TEMP 36.1; O2SAT 98
--- NOTE | 2025-02-26 10:21 | PM.HP.IH.1 ---
History of Present Illness History of Present Illness Date Patient Seen: 02/26/25 Chief complaint: Colonoscopy and history of anal cancer. Last colo Narrative: History of anal cancer and last colonoscopy 10 years ago [facility] Medical History (Updated 01/15/25 @ 09:47 by Nunu Kent RN) Persistent atrial fibrillation Encounter for subsequent annual wellness visit (AWV) in Medicare patient Mixed hyperlipidemia Benign essential HTN Impingement syndrome of left shoulder Wears glasses Carpal tunnel syndrome (~2017) Mumps (~1954) Chicken pox (~1954) Hearing loss (~2021) Atrial fibrillation, new onset (~2022) Facet arthropathy, lumbar Vertigo (~2021) Foraminal stenosis of lumbosacral region Lumbosacral spondylosis with radiculopathy Pollen allergies Anal cancer (~2014) Ulcer GERD (gastroesophageal reflux disease) Arthritis Hyperlipidemia Surgical History (Updated 01/15/25 @ 09:47 by Nunu Kent RN) Anesthesia History of carpal tunnel release (~2017) Status post rotator cuff repair (~1981) Family History Mother Diabetes mellitus Sister Diabetes mellitus Brother History of heart disease Hyperlipidemia Hypertension Sister Diabetes mellitus Hypertension Hyperlipidemia Social History household members: spouse Smoking Status: Never smoker alcohol intake: current Meds Home Medications and Allergies Home Medications ?Medication ?Instructions ?Recorded ?Confirmed ?Type acetaminophen 500 mg tablet 500 mg PO Q6H PRN Pain, Moderate 12/30/18 02/26/25 History (Tylenol Extra Strength) rafolbagnrvx-gzykywih-jtvco acid 1 mcg PO DAILY 12/30/18 02/26/25 History 400 mcg-vitamin K 80 mcg capsule (Multi For Her 50 Plus) cholecalciferol (vitamin D3) 50 50 mcg PO DAILY 02/26/21 02/26/25 History mcg (2,000 unit) capsule green tea leaf extract 1 cap PO DAILY 02/16/23 02/26/25 History apixaban 5 mg tablet (Eliquis) 5 mg PO BID 04/06/23 02/26/25 History triamcinolone acetonide 0.1 % topical 04/06/23 12/04/24 History topical ointment Lactobacillus acidophilus 10 10,000 mmu cells PO DAILY 07/26/23 02/26/25 History billion cell capsule famotidine 20 mg tablet 20 mg PO DAILY 07/26/23 02/26/25 History amiodarone 100 mg tablet 100 mg PO DAILY 09/21/23 02/26/25 History vitamin E (dl, acetate) 45 mg (100 100 mg PO DAILY 09/29/23 02/26/25 History unit) capsule rosuvastatin 5 mg tablet 5 mg PO DAILY 10/20/23 02/26/25 History tramadol 50 mg tablet 50 mg PO TID PRN pain #30 tabs 10/20/23 02/26/25 Rx losartan 25 mg tablet 12.5 mg (1/2 x 25 mg) PO DAILY #45 03/21/24 02/26/25 Rx tabs celecoxib 200 mg capsule 200 mg PO DAILY 05/08/24 12/04/24 History Held on 05/08/24. Instructions: Home Medication placed on hold at Doctor's office flecainide 100 mg tablet 100 mg PO BID 05/08/24 02/26/25 History diazepam 5 mg tablet (Valium) 5 mg PO BID PRN anxiety #10 tabs 09/26/24 02/26/25 Rx prednisolone acetate 1 % eye drp EYE-BOTH 09/26/24 12/04/24 History drops,suspension furosemide 20 mg tablet 20 mg PO DAILY 12/04/24 02/26/25 History gabapentin 300 mg capsule 600 mg (2 x 300 mg) PO BEDTIME 12/04/24 02/26/25 Rx #360 caps metoprolol tartrate 25 mg tablet 25 mg PO BID 12/04/24 02/26/25 History Allergies Allergy/AdvReac Type Severity Reaction Status Date / Time No Known Drug Allergies Allergy Verified 02/26/25 09:45 Exam Vital Signs (past 8 hours): - 02/26/25 09:49 Temperature 97.0 F L Pulse Rate 87 Respiratory Rate 17 Blood Pressure 149/71 H Pulse Oximetry 98 Oxygen Delivery Method Room Air Oxygen Delivery Method Room Air Narrative Exam Narrative: Oropharynx free of lesions Chest clear to auscultation percussion Cardiac exam reveals no S3 or murmur Assessment & Plan Assessment & Plan narrative: History of anal cancer and need for follow-up on negative colonoscopy. Risks, benefits, alternatives have been explained. Time-Based Coding :: [TOTAL MINUTES] spent with patient and on the chart (including review of chart, obtaining history, exam, reviewing outside data, placing orders, documenting exam and treatment plan, and counseling patient) on [DATE]. PROFEE Associate Account Manager Document charge(s): No
--- NOTE | 2025-02-26 10:22 | PM.OP.COLON ---
Operative Date/Time/Diagnoses Date of procedure: 02/26/25 Time of procedure: 10:43 Pre-op diagnosis: See indication and findings Post-op diagnosis: same Procedure & Clinicians Study performed: Colonoscopy Same procedure as scheduled: Yes Indications: History of anal cancer and follow-up of negative colonoscopies Surgeon: Vanesa Parker Procedure Notes Procedure in detail: After informed consent was obtained the patient was placed in left lateral decubitus position. The video colonoscope was placed the rectum slowly advanced. This was easily passed cecum. On slow withdrawal mucosa was carefully examined. The scope was removed. The patient tolerated the procedure well. Blood loss none Complications none Sedation mac Findings 1. Postsurgical changes in the rectum with a small rectal vault and narrowed area leaving the rectum. 2. Otherwise negative colonoscopy to cecum This can be last colonoscopy. She still may need follow-up screenings of her rectum however
--- NOTE | 2025-02-26 10:32 | SUR.OPER ---
CHANGED TO A PED SCOPE 024
[2025-02-26 10:45] VITALS: BP 113/47; PULSE 80; RESP 11; TEMP 36.2; O2SAT 98
[2025-02-26 10:52] VITALS: BP 130/51; PULSE 68; RESP 17; TEMP 36.5; O2SAT 98
== END 2025-02-26 11:06 | disposition home or self-care (01) ==
PROVIDERS: Family Provider Internal Medicine; PCP Family Medicine; Referring Provider Internal Medicine Gastroenterology; Visit Provider Internal Medicine Gastroenterology
PROC: 0DJD8ZZ Inspection of Lower Intestinal Tract, Via Natural or Artificial Opening Endoscopic (ICD-10-PCS; CPT 45378; principal; 2025-02-26 10:30)
DX: Z12.11 Encounter for screening for malignant neoplasm of colon (principal); K62.4 Stenosis of anus and rectum; Z85.048 Personal history of other malignant neoplasm of rectum, rectosigmoid junction, and anus; I10 Essential (primary) hypertension; E78.2 Mixed hyperlipidemia; I48.91 Unspecified atrial fibrillation; K21.9 Gastro-esophageal reflux disease without esophagitis; Z79.01 Long term (current) use of anticoagulants
CPT/HCPCS: G0105; J2704

== ENCOUNTER → 2025-03-27 11:27 | Outpatient (CLI) | payer MEDICARE, BC, SELFPAY ==
[2023-02-16 16:28] VITALS: BMI 31.1
[2025-03-27 12:31] LABS: Hematocrit 35.1 % (36-46); Hemoglobin 12.1 g/dL (12.0-16.0); Mean Corpuscular HGB Conc 34.4 % (30-36); Mean Corpuscular Hemoglobin 32.0 PG (26-34); Mean Corpuscular Volume 93.0 fL (80-100); Platelet Count 263 X10^3/uL (150-400)
[2025-03-27 12:32] LABS: Add Manual Diff / Slide Review YES
[2025-03-27 12:43] LABS: Atypical Lymphocytes Percent 2.0 %; Eosinophils Percent Manual 1.0 % (2-4); Lymphocytes Percent Manual 65.0 % (25-45); Monocytes Percent Manual 4.0 % (2-11); Neutrophils Absolute Manual 3360 /uL (3000-5900); RBC Morphology Normal Morphology; Segmented Neutrophils Percent 28.0 % (38-70); Total Cells Counted 100
[2025-03-27 13:21] LABS: Blood Urea Nitrogen 19 mg/dL (7-17); Calcium 9.5 mg/dL (8.4-10.2); Carbon Dioxide 28 mmol/L (22-32); Chloride 103 mmol/L (98-107); Estimated Glomerular Filt Rate 54 mL/min (>60); Glucose 85 mg/dL (70-99); HEMOLYSIS < 15 (0-50); Sodium 137 mmol/L (137-145)
[2025-03-27 13:23] LABS: Potassium 5.4 mmol/L (3.4-5.1)
[2025-03-27 14:38] LABS: Microalbumi Creatinin Ratio Ur 14.0 ug/mg CR (<30)
== END ==
PROVIDERS: Family Provider Internal Medicine; PCP Family Medicine; Referring Provider Family Medicine; Visit Provider Family Medicine
DX: N18.30 Chronic kidney disease, stage 3 unspecified (principal); N28.9 Disorder of kidney and ureter, unspecified; D72.820 Lymphocytosis (symptomatic); I10 Essential (primary) hypertension
CPT/HCPCS: 36415; 80048; 82043; 82570; 85007; 85025

== ENCOUNTER → 2025-04-17 10:19 | Outpatient (CLI) | payer MEDICARE, BC, SELFPAY ==
[2023-02-16 16:28] VITALS: BMI 31.1
[2025-04-17 11:45] LABS: Blood Urea Nitrogen 20 mg/dL (7-17); Calcium 9.9 mg/dL (8.4-10.2); Carbon Dioxide 26 mmol/L (22-32); Chloride 105 mmol/L (98-107); Estimated Glomerular Filt Rate 44 mL/min (>60); Glucose 83 mg/dL (70-99); HEMOLYSIS < 15 (0-50); Potassium 4.5 mmol/L (3.4-5.1); Sodium 140 mmol/L (137-145)
== END ==
PROVIDERS: Family Provider Internal Medicine; PCP Family Medicine; Referring Provider Family Medicine; Visit Provider Family Medicine
DX: E87.5 Hyperkalemia (principal)
CPT/HCPCS: 36415; 80048

== ENCOUNTER 2025-04-19 08:00 | Outpatient (CLI) | payer MEDICARE, BC, SELFPAY ==
[2023-02-16 16:28] VITALS: BMI 31.1
[2025-04-19 08:55] VITALS: BP 140/94; PULSE 61; RESP 16; TEMP 36.8; O2SAT 97
[2025-04-19 09:29] VITALS: BP 187/74; PULSE 53; RESP 16; O2SAT 100
[2025-04-19] MEDS: MIDAZOLAM 2 MG/2 ML VIAL IV (09:33)
[2025-04-19 09:35] VITALS: BP 125/89; PULSE 67; RESP 16; O2SAT 98
[2025-04-19] MEDS: BETAMETHASONE 30 MG/5 ML MDV 12 MG INJ (09:38)
[2025-04-19] MEDS: DEXAMETHASONE 10 MG/ML VIAL 20 MG INJ (09:38)
[2025-04-19] MEDS: BETAMETHASONE 30 MG/5 ML MDV 6 MG INJ (09:39)
[2025-04-19] MEDS: BUPIVACAINE 0.25% (PF) VIAL 2 ML INJ (09:39)
[2025-04-19 09:40] VITALS: BP 132/69; PULSE 62; RESP 16; O2SAT 100
[2025-04-19 09:45] VITALS: PULSE 64; RESP 16; O2SAT 100
--- NOTE | 2025-04-19 09:50 | P.PCN_ITS ---
Date/Time/Diagnoses Date of procedure: 04/19/25 Time of procedure: 09:50 Pre-procedure diagnosis: 1. FORAMINAL STENOSIS WITH LE SYMPTOMS Post-procedure diagnosis: same Procedure Notes Procedure: 1. FLUOROSCOPICALLY GUIDED CONTRAST CONTROLLED TRANSFORAMINAL EPIDURAL STEROID INJECTION - RIGHT L4/5 TFESI Indications: Alexandra is referred by Dr. Woo for treatment of Foraminal Stenosis with Right LE Symptoms Physician: Michael Rivera Total Fluoroscopy time (seconds): 12 Total sedation minutes: 12 Complications: none Procedure in detail & Post-procedure care: FINDINGS Foraminal Nerve Root Compression secondary to disc disease and facet hypertrophy DESCRIPTION OF PROCEDURE Following review of allergy and review of potential side effects and complications, including, but not necessarily limited to, infection, allergic reaction, local tissue breakdown, stroke, temporary or permanent nerve injury, paralysis, and possible , the patient indicated that the patient understood and agreed to proceed. An informed consent document was signed by the patient, witnessed by a nurse, and placed in the patient's chart. Additionally, other treatment options including medications, modalities, and physical therapy were reviewed with the patient. After review of previous anaesthesic history and IV conscious sedation the patient was deemed safe to proceed with today?s procedure with IV conscious sedation as ASA class II designation. Safety time-out was performed to confirm patient ID, procedure to be performed and site of procedure. IV sedation was accomplished with a combination of 2mg of Versed was administered by the RN after DO order, titrated to patient comfort during the course of the procedure while the patient remained responsive to all verbal commands In the prone position following sterile prep and drape of the lumbar region, the right L4/5 posterior neuroforamen was identified fluoroscopically. The skin was anesthetized via a 25-gauge 1.5-inch needle with 1% lidocaine solution. At this point, a 25-gauge 3.5-inch spinal needle was atraumatically introduced and advanced under fluoroscopic guidance through the posterior right L4/5 neuroforamen to approximately the anterior aspect of the canal. Depth was confirmed on lateral view. Following negative aspiration, injection of approximately 1.5cc of Isovue 200 under live fluoroscopy in the AP view co nfirmed excellent flow along the nerve root, into the epidural space without vascular or intrathecal uptake observed Radiological data, including multiple fluoroscopic views of the lumbosacral spin e, reveal a spinal needle at the right L4/5 posterior neuroforamen. Subsequent views show flow of contrast material flowing superiorly and inferiorly along the nerve root confirming epidural flow. Subsequently, a test dose of 1.5 cc of 0.25%marcaine solution was administered and patient was observed for two minutes for signs or symptoms of complications, including abdominal pain, shortness of breath, bilateral upper or lower extremity weakness, nausea and vomiting, prior to steroid injection. At this point, a total of 3cc or 10mg of dexamethasone and 12mg of betamethasone was injected without incident. The procedure tolerated the procedure well without signs or symptoms of complications prior to transfer to the recovery area continued monitoring without incident. The patient was then transferred to the recovery area where they were observed for an appropriate time after the injection. The patient reported a VAS score of 7 prior to the procedure and a post- procedure VAS of 0. POST OP INSTRUCTIONS The patient was provided a Pain Log to continue to record their response to the target-specific procedure prior to follow-up visit with their referring physician. Additionally, specific post-injection care instructions and a contact number to our office were provided if concerns arise regarding possible complications associated with the procedure are suspected.
--- NOTE | 2025-04-19 09:51 | P.PCN_ITS ---
Date/Time/Diagnoses Date of procedure: 04/19/25 Time of procedure: 09:51 Pre-procedure diagnosis: 1. FORAMINAL STENOSIS WITH LE SYMPTOMS Post-procedure diagnosis: same Procedure Notes Procedure: 1. FLUOROSCOPICALLY GUIDED CONTRAST CONTROLLED TRANSFORAMINAL EPIDURAL STEROID INJECTION - RIGHT L3/4 TFESI Indications: Alexandra is referred by Dr. Woo for treatment of Foraminal Stenosis with right LE Symptoms Physician: Michael Rivera Total Fluoroscopy time (seconds): 12 Total sedation minutes: 12 Complications: none Procedure in detail & Post-procedure care: FINDINGS Foraminal Nerve Root Compression secondary to disc disease and facet hypertrophy DESCRIPTION OF PROCEDURE Following review of allergy and review of potential side effects and complications, including, but not necessarily limited to, infection, allergic reaction, local tissue breakdown, stroke, temporary or permanent nerve injury, paralysis, and possible , the patient indicated that the patient understood and agreed to proceed. An informed consent document was signed by the patient, witnessed by a nurse, and placed in the patient's chart. Additionally, other treatment options including medications, modalities, and physical therapy were reviewed with the patient. After review of previous anaesthesic history and IV conscious sedation the patient was deemed safe to proceed with today?s procedure with IV conscious sedation as ASA class II designation. Safety time-out was performed to confirm patient ID, procedure to be performed and site of procedure. IV sedation was accomplished with a combination of 2mg of Versed was administered by the RN after DO order, titrated to patient comfort during the course of the procedure while the patient remained responsive to all verbal commands In the prone position following sterile prep and drape of the lumbar region, the right L3/4 posterior neuroforamen was identified fluoroscopically. The skin was anesthetized via a 25-gauge 1.5-inch needle with 1% lidocaine solution. At this point, a 25-gauge 3.5-inch spinal needle was atraumatically introduced and advanced under fluoroscopic guidance through the posterior right L3/4 neuroforamen to approximately the anterior aspect of the canal. Depth was confirmed on lateral view. Following negative aspiration, injection of approximately 1.5 cc of Isovue 200 under live fluoroscopy in the AP view conf irmed excellent flow along the nerve root, into the epidural space without vascular or intrathecal uptake observed Radiological data, including multiple fluoroscopic views of the lumbosacral spine, reveal a spinal needle at the right L3/4 posterior neuroforamen. Subsequent views show flow of contrast material flowing superiorly and inferiorly along the nerve root confirming epidural flow. Subsequently, a test dose of 1.5 cc of 0.25%marcaine solution was administered and patient was observed for two minutes for signs or symptoms of complications, including abdominal pain, shortness of breath, bilateral upper or lower extremity weakness, nausea and vomiting, prior to steroid injection. At this point, a total of 3cc or 10mg of dexamethasone and 12mg of betamethasone was injected without incident. The patient tolerated the procedure well without signs or symptoms of complications prior to transfer to the recovery area continued monitoring without incident. The patient was then transferred to the recovery area where they were observed for an appropriate time after the injection. The patient reported a VAS score of 7 prior to the procedure and a post-procedure VAS of 0. POST OP INSTRUCTIONS The patient was provided a Pain Log to continue to record their response to the target-specific procedure prior to follow-up visit with their referring p hysician. Additionally, specific post-injection care instructions and a contact number to our office were provided if concerns arise regarding possible complications associated with the procedure are suspected.
[2025-04-19 09:58] VITALS: BP 154/65; PULSE 64; RESP 17; O2SAT 98
== END 2025-04-19 10:14 | disposition home or self-care (01) ==
PROVIDERS: Family Provider Internal Medicine; PCP Family Medicine; Referring Provider Physical Medicine & Rehabilitation; Visit Provider Physical Medicine & Rehabilitation
DX: M48.061 Spinal stenosis, lumbar region without neurogenic claudication (principal); M51.16 Intervertebral disc disorders with radiculopathy, lumbar region; M47.26 Other spondylosis with radiculopathy, lumbar region
CPT/HCPCS: 64483; 64484; 99152; J0702; J1100; J2250

== ENCOUNTER → 2025-06-10 08:49 | Outpatient (CLI) | payer MEDICARE, BC, SELFPAY ==
[2025-04-26 11:44] VITALS: BMI 31.1
--- NOTE | 2025-06-10 08:53 | DI.MRI.S_ITS ---
PROCEDURE: MR HEAD/BRAIN WO/W CON INDICATIONS: VISION TECHNIQUE: Noncontrast sagittal T1 spin echo, axial T2 fast spin echo, axial FLAIR, axial gradient echo, axial diffusion and ADC through the brain. Axial/sagittal/coronal 3-D CISS, thin-slice axial T1 spin echo with fat saturation through the skull base. After the administration of contrast, axial and coronal thin-slice T1 spin echo with fat saturation through the orbits, axial and coronal and sagittal T1 spin echo with fat saturation through the brain. COMPARISON: None. FINDINGS: Image quality: This examination is limited by involuntary motion artifact. Orbits: Note is made of bilateral lens replacements. The globes demonstrate normal, symmetric appearance. The lacrimal glands are normal and symmetric. The extraocular muscles demonstrate a normal, symmetric appearance. No significant abnormality of the optic nerve can be seen. No abnormal fluid can be seen along the course of the optic nerve. No orbital masses or abnormal enhancement can be seen. No significant periorbital abnormality can be seen. CSF spaces: Ventricles are normal in size and shape. No extra-axial fluid collections. Basal cisterns are patent. Brain: No intracranial bleeds or mass effects. No abnormal intracranial enhancement. Diffusion weighted images show no acute ischemic insults. Miller-white matter interface is intact. Brainstem is normal. Normal intravascular flow voids are present. Skull and face: Calvarial marrow signal is normal. Orbits appear normal. Sinuses: Sinuses and mastoids appear clear. IMPRESSION: No significant orbital abnormality is seen. No masses or abnormal enhancement can be seen. No findings of acute or subacute infarction can be seen. No prior territorial infarct can be seen. Dictated by: Meño Mohr M.D. on 06/11/2025 at 11:12 Approved by: Meño Mohr M.D. on 06/11/2025 at 11:14
== END ==
PROVIDERS: Family Provider Internal Medicine; PCP Family Medicine; Referring Provider Family Medicine; Visit Provider Ophthalmology
DX: H53.2 Diplopia (principal); H50.05 Alternating esotropia; H49.22 Sixth [abducent] nerve palsy, left eye
CPT/HCPCS: 70553; A9579

== ENCOUNTER → 2025-08-20 11:56 | Outpatient (CLI) | payer MEDICARE, BC, SELFPAY ==
[2025-08-10 09:57] VITALS: BMI 31.1
[2025-08-20 13:14] LABS: Hematocrit 36.9 % (36-46); Hemoglobin 12.5 g/dL (12.0-16.0)
[2025-08-20 13:37] LABS: Blood Urea Nitrogen 16 mg/dL (7-17); Calcium 9.8 mg/dL (8.4-10.2); Carbon Dioxide 27 mmol/L (22-32); Chloride 102 mmol/L (98-107); Estimated Glomerular Filt Rate 55 mL/min (>60); Glucose 100 mg/dL (70-99); HEMOLYSIS < 15 (0-50); Sodium 137 mmol/L (137-145)
[2025-08-20 13:38] LABS: Potassium 5.4 mmol/L (3.4-5.1)
[2025-08-20 14:08] LABS: Protein (Total) Urine Random 8 mg/dL (0-12)
[2025-08-20 14:12] LABS: Microalbumi Creatinin Ratio Ur 35.0 ug/mg CR (<30)
== END ==
PROVIDERS: PCP Family Medicine; Referring Provider Internal Medicine Nephrology; Visit Provider Internal Medicine Nephrology
DX: N18.30 Chronic kidney disease, stage 3 unspecified (principal)
CPT/HCPCS: 36415; 80048; 82043; 82570; 84156; 85014; 85018